=== PATIENT | male | born 1945 | race Caucasian/White ===

== ENCOUNTER 2018-09-08 21:47 | Inpatient (IN) ==
[2018-09-08 22:34] LABS: Basophils # 0.1 K/mm3 (0-0.2); Basophils % 0.5 % (0.1-2.0); Eosinophils # 0.5 K/mm3 (0.0-0.4); Eosinophils % 2.5 % (0.1-12.0); Hematocrit 45.3 % (42.0-52.0); Hemoglobin 14.8 g/dL (14.1-18.0); Lymphocytes # 2.4 K/mm3 (0.7-4.5); Mean Corpuscular HGB Conc 32.7 g/dL (31.8-35.4); Mean Corpuscular Hemoglobin 30.4 pg (27.0-31.2); Mean Corpuscular Volume 92.9 fl (80-94); Mean Platelet Volume 8.1 fl (7.4-10.4); Monocytes # 1.1 K/mm3 (0.1-1.0); Monocytes % 5.7 % (1.7-9.3); Neutrophils # 14.6 K/mm3 (1.8-7.8); Neutrophils % 78.4 % (37.0-80.0); Platelet Count 380 K/mm3 (142-424); Red Blood Count 4.88 M/mm3 (4.60-6.20); Red Cell Distribution Width 14.6 % (11.5-17.5); White Blood Count 18.7 K/mm3 (4.8-10.8)
[2018-09-08 22:44] LABS: Albumin Level 2.8 gm/dL (3.4-5.0); Albumin/Globulin Ratio 0.6 (1.1-1.8); Anion Gap 15.1 mEq/L (5-15); Bilirubin,Total 0.6 mg/dL (0.2-1.0); Calcium 9.1 mg/dL (8.5-10.1); Globulin 4.7 gm/dl (1.3-3.2); Potassium 4.1 mmoL/L (3.5-5.1); Total Protein,Serum 7.5 gm/dL (6.4-8.2)
[2018-09-08 22:49] LABS: Lymphocytes % 13 % (10-50); Monocytes % 4 % (2-9); Neutrophils % 77 % (42-76); RBC Morphology Normal; Total Cells Counted 100
[2018-09-08 23:16] LABS: INR 2.45 (0.9-1.1); Prothrombin Time 24.6 seconds (9.4-11.8)
--- NOTE | 2018-09-08 23:17 | Emergency Department Note ---
ED Disposition Clinical Impression: Renal insufficiency Cellulitis Qualifiers: Site of cellulitis: extremity Site of cellulitis of extremity: lower extremity Laterality: right Qualified Code(s): L03.115 - Cellulitis of right lower limb A-fib Qualifiers: Atrial fibrillation type: chronic Qualified Code(s): I48.2 - Chronic atrial fibrillation Disposition: Admitted as Observation Condition on Discharge: Good - Critical Care Critical Care Time: No Attestation: On 09/08/18, the high probability of a clinically significant, sudden or life threatening deterioration of the following system(s) required my full and direct attention, intervention and personal management. The time I documented below is in addition to time spent performing reported procedures but includes the following listed in this critical care notation. Medical Decision Making - Medical Records Medical records reviewed: Yes: I reviewed the patient's medical records. - Macario Inquiry Pt receiving controlled substance: No Vital Signs: 09/08/18 21:51 09/08/18 23:05 Temperature 97.9 F Temperature Source Oral Pulse Rate [Right Brachial] 122 H 110 H Respiratory Rate 20 16 Blood Pressure [Right Arm] 108/71 L 116/67 Blood Pressure Mean [Right Arm] 83 83 Blood Pressure Source [Right Arm] Automatic Cuff Automatic Cuff Blood Pressure Position [Right Arm] Sitting Sitting 02 Sat by Pulse Oximetry 100 98 Oxygen Delivery Method Room Air Room Air - Lab Data Lab results reviewed: Yes: I reviewed the patient's lab results. Lab Results 09/08/18 22:11: WBC 18.7 H, RBC 4.88, Hgb 14.8, Hct 45.3, MCV 92.9, MCH 30.4, MCHC 32.7, RDW 14.6, Plt Count 380, MPV 8.1, Neut % (Auto) 78.4, Lymph % (Auto) 13.0, [place] % (Auto) 5.7, Eos % (Auto) 2.5, Baso % (Auto) 0.5, Neut # (Auto) 14.6 H, Lymph # (Auto) 2.4, [place] # (Auto) 1.1 H, Eos # (Auto) 0.5 H, Baso # (Auto) 0. 1, Total Counted 100, Neutrophils % (Manual) 77 H, Band Neutrophils % 6.0, Lymphocytes % (Manual) 13, Monocytes % (Manual) 4, Platelet Estimate Normal, RBC Morphology Normal 09/08/18 22:11: Sodium 141, Potassium 4.1, Chloride 104, Carbon Dioxide 26, Anion Gap 15.1 H, BUN 24 H, Creatinine 1.23, Estimated Creat Clear 87, Estimated GFR 58 L, Est GFR ( Amer) 70, Glucose 117 H, Calcium 9.1, Total Bilirubin 0.6, AST 20, ALT 42, Alkaline Phosphatase 96, Total Protein 7.5, Albumin 2.8 L, Globulin 4.7 H, Albumin/Globulin Ratio 0.6 L 09/08/18 22:11: Lactate 1.4 09/08/18 22:11: ESR 60 H 09/08/18 22:11: C-Reactive Protein 15.6 H 09/08/18 22:11: PT 24.6 H, INR 2.45 H Result diagrams: 09/08/18 22:11 09/08/18 22:11 Orders (Tests/Meds): ED MEDICATIONS Generic Name Dose Route Start Last Admin Trade Name Freq PRN Reason Stop Dose Admin Sodium Chloride 1,000 mls @ 999 mls/hr 09/08/18 22:15 09/08/18 22:19 Sod Chlor 0.9% 1000ml Bag IV 09/08/18 23:15 999 mls/hr .Q1H1M GANGA Administration Clindamycin Phosphate 900 mg/ 106 mls @ 100 mls/hr 09/08/18 23:30 09/08/18 23:36 Sodium Chloride IV 09/22/18 23:29 100 mls/hr Q8H GANGA Administration Protocol Levofloxacin/Dextrose 750 mg in 150 mls @ 100 mls/hr 09/08/18 23:30 Levofloxacin 750mg/150ml Premix IV 09/22/18 23:29 Q24H GANGA Protocol Sodium Chloride 10 ml 09/08/18 22:02 Saline Flush 10ml Syringe IV 10/08/18 22:01 NEEDED PRN Maintain IV Site Discontinued Medications Generic Name Dose Route Start Last Admin Trade Name Freq PRN Reason Stop Dose Admin Ibuprofen 400 mg 09/08/18 23:06 09/08/18 23:11 Motrin 400mg Tablet PO 09/08/18 23:07 400 mg ONCE ONE Administration Morphine Sulfate 4 mg 09/08/18 22:22 09/08/18 22:24 Morphine 4mg/Ml Syringe IV 09/08/18 22:23 4 mg ONCE ONE Administration Ondansetron HCl 4 mg 09/08/18 22:22 09/08/18 22:24 Zofran 4mg/2ml Vial IV 09/08/18 22:23 4 mg ONCE ONE Administration ORDERS Category Date Time Status XR ankle RT min 3V Stat Exams 09/08/18 22:02 Taken Blood Culture Stat Micro 09/08/18 22:11 Received Wound Culture and Gram Stain Stat Micro 09/08/18 22:04 Ordered ECG Request by /Niko Stat Y 09/08/18 22:12 Ordered - Radiology Data #1 Image(s): Ankle Image Reviewed: Yes I reviewed the patient's radiology image Preliminary Findings: Abnormal (orif ) - ECG Data Tracing #1 Arrhythmias present: afib Ischemic changes: non-specific ST-T wave changes - Physician Consults Physician Consulted: abbie Reason -: Admission Skin/Abscess/FB HPI - General Chief complaint: Skin/Abscess/Foreign Body Stated complaint: Right leg swollen and red Time Seen by Provider: 09/08/18 23:17 Mode of Arrival: Wheelchair Source of Information: Patient, Spouse, Medical Record Limitations: No Limitations Description of Symptoms (Recalled from ER Triage Doc. by RN): Pt has a swollen, painful red right ankle that started almost a week ago, he denies any other symptoms . - History of Present Illness HPI narrative: progressive pain and swelling rt lower leg over the last few days - no sob - had orif rt ankle -2002 complaint: abscess/boil Onset (ago): hour(s) Tetanus up to date: unsure Location: RLE Severity: moderate Associated symptoms: denies other symptoms Treatments prior to arrival: none - Related Data Home Medications Medication Instructions Recorded Confirmed Amlodipine Besylate 10 mg PO DAILY 09/08/18 09/08/18 Budesonide/Formoterol Fumarate 1 puff IH NEEDED PRN 09/08/18 09/08/18 [Symbicort 160-4.5 Mcg Inhaler] Furosemide [Furosemide 40MG tAB] 40 mg PO DAILY 09/08/18 09/08/18 Losartan Potassium 100 mg PO DAILY 09/08/18 09/08/18 Metoprolol Tartrate 100 mg PO DAILY 09/08/18 09/08/18 Oxycodone HCl/Acetaminophen 10 mg PO NEEDED PRN 09/08/18 09/08/18 [Oxycodone W/Apap 325mg Tablet] Warfarin Sodium 3 mg PO DAILY 09/08/18 09/08/18 Allergies Allergy/AdvReac Type Severity Reaction Status Date / Time NO KNOWN ALLERGIES - NKA Allergy Unknown Uncoded 07/03/17 14:22 [facility] [place] History - Hepatitis A Screen Drug use history?: No High risk sexual behaviors?: No History of sexually transmitted infection?: No Currently employed?: No Childcare worker?: No Do you have indoor plumbing?: Yes Do you have electricity?: Yes Attestation statement:: This patient has been screened for Hepatitis A risk factors. I have reviewed the patient's past medical history: Yes Medical History: Denies:: Diabetes Mellitus Type 1 Laterality Cases: Bilateral: Total Knee Replacement - Social History Smoking Status: Current every day smoker Tobacco Type: cigarettes # Packs/Day (cigarettes): 1 Alcohol Intake: never Occupational Status: disabled - Psychiatric History Expresses thoughts of harming self/others: None Suicide Plan Description: No Plan ROS Obtained: Yes All systems reviewed & no additional complaints - Constitutional Constitutional: Denies fever(s) - Eyes Eyes: Denies change in vision - ENT Ears, Nose, Mouth, and Throat: Denies sore throat - Cardiovascular Cardiovascular: Denies chest pain - Respiratory Respiratory: No cough, No dyspnea - Gastrointestinal Gastrointestingal: Denies: abdominal pain - Genitourinary Male Genitourinary: Denies hematuria - Musculoskeletal Musculoskeletal: Reports as per HPI, Reports joint pain, Reports joint swelling, Reports limited range of motion - Integumentary/Breasts Skin/Breast: Denies rash - Neurologic Neurologic: Denies seizure-like activity Physical Exam - General General appearance: alert - Head Head exam: normocephalic - Eye Eye exam: Present: PERRL, EOMI - ENT ENT exam: Present: mucous membranes moist - Neck Neck exam: Present: trachea midline - Respiratory Respiratory exam: Absent: respiratory distress - Cardiovascular Cardiovascular exam: Present: irregular rhythm, systolic murmur - Abdominal Exam Abdominal exam: Present: soft - Expanded Lower Extremity Exam Right Lower leg exam: Absent: Homans' sign Ankle exam: Present: tenderness, erythema. Absent: full ROM - Neurological Exam Neurological exam: Present: alert, CN II-XII intact
[2018-09-09 06:21] LABS: Basophils # 0.1 K/mm3 (0-0.2); Basophils % 0.5 % (0.1-2.0); Eosinophils # 0.3 K/mm3 (0.0-0.4); Hemoglobin 13.7 g/dL (14.1-18.0); Lymphocytes # 2.1 K/mm3 (0.7-4.5); Lymphocytes % 13.2 % (10-50); Mean Corpuscular HGB Conc 32.7 g/dL (31.8-35.4); Mean Corpuscular Hemoglobin 30.4 pg (27.0-31.2); Mean Platelet Volume 7.7 fl (7.4-10.4); Monocytes # 1.3 K/mm3 (0.1-1.0); Monocytes % 7.9 % (1.7-9.3); Neutrophils # 12.1 K/mm3 (1.8-7.8); Neutrophils % 76.5 % (37.0-80.0); Platelet Count 363 K/mm3 (142-424); Red Blood Count 4.51 M/mm3 (4.60-6.20); Red Cell Distribution Width 14.7 % (11.5-17.5); White Blood Count 15.8 K/mm3 (4.8-10.8)
[2018-09-09 06:27] LABS: Anion Gap 11.3 mEq/L (5-15); Calcium 8.7 mg/dL (8.5-10.1); Potassium 4.3 mmoL/L (3.5-5.1)
[2018-09-09 06:28] LABS: INR 2.54 (0.9-1.1); Prothrombin Time 25.5 seconds (9.4-11.8)
--- NOTE | 2018-09-09 07:26 | Pharmacy Consult Notes ---
[facility] Pharmacy VTE Monitoring - Patient Demographics Admission date: 09/09/18 Report Date: 09/09/18 Time: 07:25 Allergies/Adverse Reactions: Patient Allergies NO KNOWN ALLERGIES - NKA Allergy (Unknown, Uncoded 07/03/17 14:22) Height: 1.83 m Weight: 113.455 kg Patient Problems: Current Active Problems Cellulitis (Acute) A-fib (Acute) Renal insufficiency (Acute) - VTE Risk Labs: VTE Related Lab Results Hgb 13.7 g/dL (14.1-18.0) L 09/09/18 06:03 Hct 42.0 % (42.0-52.0) 09/09/18 06:03 Plt Count 363 K/mm3 (142-424) 09/09/18 06:03 PT 25.5 seconds (9.4-11.8) H 09/09/18 06:03 INR 2.54 (0.9-1.1) H 09/09/18 06:03 BUN 23 mg/dL (7-18) H 09/09/18 06:03 Creatinine 1.18 mg/dL (0.70-1.30) 09/09/18 06:03 Estimated Creat Clear 91 mL/min (50-200) 09/09/18 06:03 - Prophylaxis VTE Prophylaxis Ordered?: Yes Types of VTE Prophylaxis: TEDS Knee High Location of Applied Device: Left Leg - VTE Diagnosis Confirmed Treatment or plan recommended: Continue Current Treatment
--- NOTE | 2018-09-09 07:33 | History & Physical Report ---
*Admission Date: 09/08/18 *Chief complaint: Right leg pain *History of present illness: 73-year-old male with history of right lower leg and ankle injury 15 years ago requiring ORIF presented to the emergency department with 5 days of pain and redness in that same leg. Patient tells me he noticed discomfort beginning on September 03. He hoped it would just go away when and when it did not and pain intensified he finally presented to the emergency department. He denies having fevers or chills. His biggest complaint is pain. In the emergency department he was evaluated and felt to have a cellulitis of the right lower extremity. Because the patient's inability to bear significant weight in the degree of cellulitis he was admitted for IV inpatient antibiotics. Patient's white count was elevated. This morning he is not really sure there is been much improvement since admission [facility] History I have reviewed the patient's past medical history: Yes Medical History: Reports:: Atrial Fibrillation, Chronic Obstructive Pulmonary Disease (COPD), Hypertension Denies:: Diabetes Mellitus Type 1, Diabetes Mellitus Type 2 *Have you ever received a pneumonia vaccine?: Yes *Have you received a flu vaccine this season?: Yes Laterality Cases: Right: Other, Bilateral: Total Knee Replacement Comment: ORIF right ankle - *Social History Smoking Status: Current every day smoker Tobacco Type: cigarettes # Packs/Day (cigarettes): 1 Alcohol Intake: never *Occupational Status:: disabled Housing: house Household Members: spouse *Travel in the last 8 weeks: None - Psychiatric History Expresses thoughts of harming self/others: None Suicide Plan Description: No Plan Family Hx:: Hypertension Review of Systems - Constitutional Denies anorexia, Denies body ache(s), Denies chills - *Cardiovascular Denies chest pain, Denies chest pain at rest - *Respiratory Denies change in phlegm color, Denies chest congestion, Denies cough - *Gastrointestinal Denies abdominal pain, Denies belching - *Musculoskeletal Reports abnormal walking, Reports joint pain, Reports limited joint movement - *Neurologic Denies seizure-like activity Meds Home Medications Medication Instructions Recorded Confirmed Type Amlodipine Besylate 10 mg PO DAILY 09/08/18 09/08/18 History Budesonide/Formoterol Fumarate 1 puff IH NEEDED PRN 09/08/18 09/08/18 History [Symbicort 160-4.5 Mcg Inhaler] Furosemide [Furosemide 40MG tAB] 40 mg PO DAILY 09/08/18 09/08/18 History Losartan Potassium 100 mg PO DAILY 09/08/18 09/08/18 History Metoprolol Tartrate 100 mg PO DAILY 09/08/18 09/08/18 History Oxycodone HCl/Acetaminophen 10 mg PO NEEDED PRN 09/08/18 09/08/18 History [Oxycodone W/Apap 325mg Tablet] Warfarin Sodium 3 mg PO DAILY 09/08/18 09/08/18 History Allergies Allergy/AdvReac Type Severity Reaction Status Date / Time NO KNOWN ALLERGIES - NKA Allergy Unknown Uncoded 07/03/17 14:22 Exam Vital signs and Labs for Last 24 Hours: Temp Pulse Resp BP Pulse Ox 98.2 F 93 H 20 116/66 93 L 09/09/18 04:00 09/09/18 04:00 09/09/18 04:00 09/09/18 04:00 09/09/18 04:00 Laboratory Results - last 24 hr 09/08/18 22:11: WBC 18.7 H, RBC 4.88, Hgb 14.8, Hct 45.3, MCV 92.9, MCH 30.4, MCHC 32.7, RDW 14.6, Plt Count 380, MPV 8.1, Neut % (Auto) 78.4, Lymph % (Auto) 13.0, [place] % (Auto) 5.7, Eos % (Auto) 2.5, Baso % (Auto) 0.5, Neut # (Auto) 14.6 H, Lymph # (Auto) 2.4, [place] # (Auto) 1.1 H, Eos # (Auto) 0.5 H, Baso # (Auto) 0.1, Total Counted 100, Neutrophils % (Manual) 77 H, Band Neutrophils % 6.0, Lymphocytes % (Manual) 13, Monocytes % (Manual) 4, Platelet Estimate Normal, RBC Morphology Normal 09/08/18 22:11: Sodium 141, Potassium 4.1, Chloride 104, Carbon Dioxide 26, Anion Gap 15.1 H, BUN 24 H, Creatinine 1.23, Estimated Creat Clear 87, Estimated GFR 58 L, Est GFR ( Amer) 70, Glucose 117 H, Calcium 9.1, Total Bilirubin 0.6, AST 20, ALT 42, Alkaline Phosphatase 96, Total Protein 7.5, Albumin 2.8 L, Globulin 4.7 H, Albumin/Globulin Ratio 0.6 L 09/08/18 22:11: Lactate 1.4 09/08/18 22:11: ESR 60 H 09/08/18 22:11: C-Reactive Protein 15.6 H 09/08/18 22:11: PT 24.6 H, INR 2.45 H 09/09/18 06:03: WBC 15.8 H, RBC 4.51 L, Hgb 13.7 L, Hct 42.0, MCV 93.0, MCH 30.4, MCHC 32.7, RDW 14.7, Plt Count 363, MPV 7.7, Neut % (Auto) 76.5, Lymph % (Auto) 13.2, [place] % (Auto) 7.9, Eos % (Auto) 2.0, Baso % (Auto) 0.5, Neut # (Auto) 12.1 H, Lymph # (Auto) 2.1, [place] # (Auto) 1.3 H, Eos # (Auto) 0.3, Baso # (Auto) 0.1 09/09/18 06:03: PT 25.5 H, INR 2.54 H 09/09/18 06:03: Sodium 141, Potassium 4.3, Chloride 105, Carbon Dioxide 29, Anion Gap 11.3, BUN 23 H, Creatinine 1.18, Estimated Creat Clear 91, Estimated GFR 61, Est GFR ( Amer) 73, Glucose 101, Calcium 8.7 I & O for Last 24 hours: Intake & Output 09/06/18 09/07/18 09/08/18 09/09/18 11:59 11:59 11:59 11:59 Weight 250 lb 2 oz Narrative: Patient is awake and alert and comfortable in bed. ENT exam is grossly normal. Lungs have some faint coarse breath sounds. Heart rate is irregularly irregular. Abdomen is obese and soft. Extremity examination reveals postsurgical changes of the right ankle. There is erythema of the skin and I have drawn a border around the erythema this morning. Erythema starts at about the mid tibia and wraps around the leg circumferentially and extends down to just above the ankle joint. Skin is tender to touch especially in the medial Assessment and Plan (1) Cellulitis of right leg without foot Current visit: Yes Status: Acute Category: Medical Code(s): L03.115 - Cellulitis of right lower limb (2) COPD (chronic obstructive pulmonary disease) Current visit: Yes Status: Acute Category: Medical Code(s): J44.9 - Chronic obstructive pulmonary disease, unspecified (3) A-fib Current visit: Yes Status: Acute Qualifiers: Atrial fibrillation type: chronic Qualified Code(s): I48.2 - Chronic atrial fibrillation Category: Medical Code(s): I48.91 - Unspecified atrial fibrillation - Assessment and plan all Dx Assessment and Plan for all problems:: 1. I am going to change his antibiotics to Unasyn and vancomycin 2. Oral narcotics for pain control 3. Home medications
--- NOTE | 2018-09-09 08:58 | Pharmacy Consult Notes ---
- Pharmacy Consult Date: 09/09/18 Time: 08:56 Referring provider: DR. TADEO Reason for Consult:: VANCOMYCIN DOSING Allergies and ADEs:: Allergies Allergy/AdvReac Type Severity Reaction Status Date / Time No Known Allergies Allergy Unverified 09/09/18 08:09 Home Medications:: Home Medications Medication Instructions Recorded Confirmed Type Amlodipine Besylate 10 mg PO DAILY 09/08/18 09/08/18 History Budesonide/Formoterol Fumarate 2 puff IH BID 09/08/18 09/09/18 History [Symbicort 160-4.5 Mcg Inhaler] Furosemide [Furosemide 40MG tAB] 40 mg PO BID 09/08/18 09/09/18 History Losartan Potassium 100 mg PO DAILY 09/08/18 09/08/18 History Metoprolol Tartrate 100 mg PO BID 09/08/18 09/09/18 History Oxycodone HCl/Acetaminophen 10 mg PO Q6HP PRN 09/08/18 09/09/18 History [Oxycodone W/Apap 325mg Tablet] Warfarin Sodium 3 mg PO DAILY 09/08/18 09/08/18 History Height: 1.83 m Weight: 113.455 kg Laboratory Results:: Laboratory Results - last 24 hr 09/08/18 22:11: WBC 18.7 H, RBC 4.88, Hgb 14.8, Hct 45.3, MCV 92.9, MCH 30.4, MCHC 32.7, RDW 14.6, Plt Count 380, MPV 8.1, Neut % (Auto) 78.4, Lymph % (Auto) 13.0, [place] % (Auto) 5.7, Eos % (Auto) 2.5, Baso % (Auto) 0.5, Neut # (Auto) 14.6 H, Lymph # (Auto) 2.4, [place] # (Auto) 1.1 H, Eos # (Auto) 0.5 H, Baso # (Auto) 0.1, Total Counted 100, Neutrophils % (Manual) 77 H, Band Neutrophils % 6.0, Lymphocytes % (Manual) 13, Monocytes % (Manual) 4, Platelet Estimate Normal, RBC Morphology Normal 09/08/18 22:11: Sodium 141, Potassium 4.1, Chloride 104, Carbon Dioxide 26, Anion Gap 15.1 H, BUN 24 H, Creatinine 1.23, Estimated Creat Clear 87, Estimated GFR 58 L, Est GFR ( Amer) 70, Glucose 117 H, Calcium 9.1, Total Bilirubin 0.6, AST 20, ALT 42, Alkaline Phosphatase 96, Total Protein 7.5, Albumin 2.8 L, Globulin 4.7 H, Albumin/Globulin Ratio 0.6 L 09/08/18 22:11: Lactate 1.4 09/08/18 22:11: ESR 60 H 09/08/18 22:11: C-Reactive Protein 15.6 H 09/08/18 22:11: PT 24.6 H, INR 2.45 H 09/09/18 06:03: WBC 15.8 H, RBC 4.51 L, Hgb 13.7 L, Hct 42.0, MCV 93.0, MCH 30.4, MCHC 32.7, RDW 14.7, Plt Count 363, MPV 7.7, Neut % (Auto) 76.5, Lymph % (Auto) 13.2, [place] % (Auto) 7.9, Eos % (Auto) 2.0, Baso % (Auto) 0.5, Neut # (Auto) 12.1 H, Lymph # (Auto) 2.1, [place] # (Auto) 1.3 H, Eos # (Auto) 0.3, Baso # (Auto) 0.1 09/09/18 06:03: PT 25.5 H, INR 2.54 H 09/09/18 06:03: Sodium 141, Potassium 4.3, Chloride 105, Carbon Dioxide 29, Anion Gap 11.3, BUN 23 H, Creatinine 1.18, Estimated Creat Clear 91, Estimated GFR 61, Est GFR ( Amer) 73, Glucose 101, Calcium 8.7 Medical History: Reports:: Atrial Fibrillation, Chronic Obstructive Pulmonary Disease (COPD), Hypertension Denies:: Diabetes Mellitus Type 1, Diabetes Mellitus Type 2 Assessment and Plan (1) Cellulitis of right leg without foot Current visit: Yes Status: Acute Category: Medical Code(s): L03.115 - Cellulitis of right lower limb (2) COPD (chronic obstructive pulmonary disease) Current visit: Yes Status: Acute Category: Medical Code(s): J44.9 - Chronic obstructive pulmonary disease, unspecified (3) A-fib Current visit: Yes Status: Acute Qualifiers: Atrial fibrillation type: chronic Qualified Code(s): I48.2 - Chronic atrial fibrillation Category: Medical Code(s): I48.91 - Unspecified atrial fibrillation - Assessment and plan all Dx Assessment and Plan for all problems:: BASED ON PATIENT FACTORS, RECOMMEND VANCOMYCIN 2 GM IV Q18H. PHARMACY WILL FOLLOW DAILY AND ADJUST APPROPRIATE.
[2018-09-10 06:52] LABS: INR 1.97 (0.9-1.1); Prothrombin Time 19.9 seconds (9.4-11.8)
--- NOTE | 2018-09-10 07:09 | Progress Note ---
Internal Medicine - PN: Subj *Date: 09/10/18 *Time: 07:07 Interval history: Patient denies any improvement in the pain in the leg. He has not attempted to ambulate due to the discomfort. Exam Vital signs and Labs for Last 24 Hours: Temp Pulse Resp BP Pulse Ox 97.2 F L 102 H 20 145/77 H 95 09/10/18 03:32 09/10/18 03:32 09/10/18 03:32 09/10/18 03:32 09/10/18 03:32 Laboratory Results - last 24 hr 09/10/18 06:25: PT 19.9 H, INR 1.97 H I & O for Last 24 hours: Intake & Output 09/07/18 09/08/18 09/09/18 09/10/18 11:59 11:59 11:59 11:59 Intake Total 120 / 120 1848 / 1848 Output Total 2700 / 2700 Balance 120 / 120 -852 / -852 Weight 250 lb 2 oz Narrative: The right lower leg from the mid soliz to the ankles remains erythematous and slightly warm to the touch. Starting at the mid tibia he has exquisite tenderness to palpation. This tenderness extends all the way to the ankle joint. Assessment and Plan (1) Cellulitis of right leg without foot Current visit: Yes Status: Acute Category: Medical Code(s): L03.115 - Cellulitis of right lower limb (2) COPD (chronic obstructive pulmonary disease) Current visit: Yes Status: Acute Category: Medical Code(s): J44.9 - Chronic obstructive pulmonary disease, unspecified (3) A-fib Current visit: Yes Status: Acute Qualifiers: Atrial fibrillation type: chronic Qualified Code(s): I48.2 - Chronic atrial fibrillation Category: Medical Code(s): I48.91 - Unspecified atrial fibrillation - Assessment and plan all Dx Assessment and Plan for all problems:: Continue antibiotics. I am going to add on intravenous steroid and some oral colchicine for the possibility of gout. Patient has no personal history of gout.
[2018-09-10 07:25] LABS: Basophils % 0.3 % (0.1-2.0); Eosinophils # 0.2 K/mm3 (0.0-0.4); Eosinophils % 1.3 % (0.1-12.0); Hematocrit 45.7 % (42.0-52.0); Hemoglobin 14.9 g/dL (14.1-18.0); Lymphocytes # 1.9 K/mm3 (0.7-4.5); Lymphocytes % 12.5 % (10-50); Mean Corpuscular HGB Conc 32.5 g/dL (31.8-35.4); Mean Corpuscular Hemoglobin 30.5 pg (27.0-31.2); Mean Corpuscular Volume 93.7 fl (80-94); Mean Platelet Volume 7.7 fl (7.4-10.4); Monocytes # 0.8 K/mm3 (0.1-1.0); Neutrophils # 12.2 K/mm3 (1.8-7.8); Neutrophils % 80.9 % (37.0-80.0); Platelet Count 375 K/mm3 (142-424); Red Blood Count 4.88 M/mm3 (4.60-6.20); Red Cell Distribution Width 14.6 % (11.5-17.5); White Blood Count 15.1 K/mm3 (4.8-10.8)
[2018-09-10 08:27] LABS: Lymphocytes % 10 % (10-50); Monocytes % 6 % (2-9); Neutrophils % 82 % (42-76); Total Cells Counted 100
[2018-09-10 08:28] LABS: RBC Morphology Normal
[2018-09-11 07:30] LABS: Basophils % 0.2 % (0.1-2.0); Hematocrit 44.2 % (42.0-52.0); Hemoglobin 14.8 g/dL (14.1-18.0); Lymphocytes # 1.3 K/mm3 (0.7-4.5); Lymphocytes % 8.2 % (10-50); Mean Corpuscular HGB Conc 33.5 g/dL (31.8-35.4); Mean Corpuscular Volume 92.4 fl (80-94); Mean Platelet Volume 8.3 fl (7.4-10.4); Monocytes # 0.4 K/mm3 (0.1-1.0); Monocytes % 2.9 % (1.7-9.3); Neutrophils # 13.6 K/mm3 (1.8-7.8); Neutrophils % 88.7 % (37.0-80.0); Platelet Count 394 K/mm3 (142-424); Red Blood Count 4.78 M/mm3 (4.60-6.20); Red Cell Distribution Width 14.4 % (11.5-17.5); White Blood Count 15.3 K/mm3 (4.8-10.8)
--- NOTE | 2018-09-11 07:30 | Discharge Summary ---
General - General Admission date:: 09/08/18 Discharge date: 09/11/18 HPI HPI: 73-year-old male with history of right lower leg and ankle injury 15 years ago requiring ORIF presented to the emergency department with 5 days of pain and redness in that same leg. Patient tells me he noticed discomfort beginning on September 03. He hoped it would just go away when and when it did not and pain intensified he finally presented to the emergency department. He denies having fevers or chills. His biggest complaint is pain. In the emergency department he was evaluated and felt to have a cellulitis of the right lower extremity. Because the patient's inability to bear significant weight in the degree of cellulitis he was admitted for IV inpatient antibiotics. Patient's white count was elevated. This morning he is not really sure there is been much improvement since admission Hospital Course Hospital Course: Patient was admitted and placed on broad-spectrum antibiotic coverage for treatment of apparent cellulitis of the right lower extremity. Diagnosis of infection was supported by patient's elevated white count. Sed rate and C- reactive protein were also noted to be elevated. Patient's x-ray of the foot and ankle showed orthopedic hardware. After 24 hours of antibiotics patient had noted little improvement in pain of the right lower extremity. Edges of erythema were marked with a pen. By the morning of the the patient still and not notice any improvement. He requested crutches for ambulation. Consideration was given to the possibility of gout as a source of the patient's inflammation and pain. Patient was started on Colcrys and intravenous steroids. Approximately 24 hours later patient had had significant improvement in pain, especially tenderness of the extremity. Erythema had seem to proceed and was concentrating just above the anterior ankle joint. During hospitalization and prior to hospitalization patient never had fevers. Once patient's pain had impr vin he was discharged home and will continue steroids and Colcrys for gout. He will finish a course of antibiotics as well. Patient will follow-up in the office on September 13 at 2 PM Objective Vital signs: Temp Pulse Resp BP Pulse Ox 98.5 F 90 16 115/61 93 L 09/11/18 04:00 09/11/18 04:00 09/11/18 04:00 09/11/18 04:00 09/11/18 04:00 Narrative: On day of discharge patient's right lower extremity had tenderness in the distal anterior tibia. Tenderness had decreased compared to previous days. The area of tenderness had also receded and was more focal. Skin remain mildly erythematous. There was no sign of abscess Results Labs on day of discharge: Labs from last 24 hours 09/10/18 06:25 WBC 15.1 H RBC 4.88 Hgb 14.9 Hct 45.7 MCV 93.7 MCH 30.5 MCHC 32.5 RDW 14.6 Plt Count 375 MPV 7.7 Neut % (Auto) 80.9 H Lymph % (Auto) 12.5 Mitchell % (Auto) 5.0 Eos % (Auto) 1.3 Baso % (Auto) 0.3 Neut # (Auto) 12.2 H Lymph # (Auto) 1.9 Mitchell # (Auto) 0.8 Eos # (Auto) 0.2 Baso # (Auto) 0.0 Total Counted 100 Neutrophils % (Manual) 82 H Band Neutrophils % 2.0 Lymphocytes % (Manual) 10 Monocytes % (Manual) 6 Platelet Estimate Normal RBC Morphology Normal Preliminary micro results at discharge 09/08/18 22:11 Blood Culture - Preliminary Blood NO GROWTH AFTER 48 HOURS 09/08/18 22:11 Blood Culture - Preliminary Blood NO GROWTH AFTER 48 HOURS DS: Diagnosis - Discharge Diagnosis (1) Cellulitis of right leg without foot Status: Acute (2) COPD (chronic obstructive pulmonary disease) Status: Acute (3) A-fib Status: Acute (4) Gout of right ankle Status: Suspected Discharge Plan - Patient Discharge Instructions ACTIVITY: Continue current activity DIET: continue same diet Patient Instructions: DI for Cellulitis -- Adult, Kidney Failure, Cellulitis, Atrial Fibrillation, DI for Atrial Fibrillation - Follow up Plan Follow up with: Ricardo Fulton MD [Primary Care Provider] - 09/13/18 Disposition: Home, Self-Correction Medications: Home Medications Medication Instructions Recorded Confirmed Type Amlodipine Besylate 10 mg PO DAILY 09/08/18 09/08/18 History Budesonide/Formoterol Fumarate 2 puff IH BID 09/08/18 09/09/18 History [Symbicort 160-4.5 Mcg Inhaler] Furosemide [Furosemide 40MG tAB] 40 mg PO BID 09/08/18 09/09/18 History Losartan Potassium 100 mg PO DAILY 09/08/18 09/08/18 History Metoprolol Tartrate 100 mg PO BID 09/08/18 09/09/18 History Oxycodone HCl/Acetaminophen 10 mg PO Q6HP PRN 09/08/18 09/09/18 History [Oxycodone W/Apap 325mg Tablet] Warfarin Sodium 3 mg PO DAILY 09/08/18 09/08/18 History Warfarin Sodium [Coumadin] 4 mg PO DAILY 09/09/18 09/09/18 History Colchicine [Colcrys 0.6mg tablet] 0.6 mg PO CONT #14 tablet 09/11/18 Rx levoFLOXacin [Levaquin 500mg 500 mg PO DAILY #7 tab 09/11/18 Rx tab] predniSONE [Prednisone 20mg 2 tab PO DAILY #20 tab 09/11/18 Rx Tab] Prescriptions/Medication Reconciliation: New levoFLOXacin [Levaquin 500mg tab] 500 mg PO DAILY #7 tab predniSONE [Prednisone 20mg Tab] 2 tab PO DAILY #20 tab Colchicine [Colcrys 0.6mg tablet] 0.6 mg PO CONT #14 tablet Continue Warfarin Sodium 3 mg PO DAILY Oxycodone HCl/Acetaminophen [Oxycodone W/Apap 325mg Tablet] 10 mg PO Q6HP PRN PRN Reason: pain Metoprolol Tartrate 100 mg PO BID Losartan Potassium 100 mg PO DAILY Furosemide [Furosemide 40MG tAB] 40 mg PO BID Budesonide/Formoterol Fumarate [Symbicort 160-4.5 Mcg Inhaler] 2 puff IH BID Amlodipine Besylate 10 mg PO DAILY Warfarin Sodium [Coumadin] 4 mg PO DAILY
[2018-09-11 07:40] LABS: INR 1.93 (0.9-1.1); Prothrombin Time 19.5 seconds (9.4-11.8)
[2018-09-11 08:00] LABS: Lymphocytes % 7 % (10-50); Monocytes % 3 % (2-9); Neutrophils % 89 % (42-76); Total Cells Counted 100
[2018-09-11 08:01] LABS: RBC Morphology Normal
== END 2018-09-11 10:34 | disposition home or self-care (01) | DRG 603 ==
LOC: ER 21:47 → 2ND 21:47 → OBSVTOIN 09-09 00:20 → 2ND 09-09 00:23
PROVIDERS: ADMIT Internal Medicine Adolescent Medicine; ATTEND Family Medicine
CPT/HCPCS: 36415; 73610; 80048; 80053; 83605; 85007; 85025; 85610; 85651; 86140; 87040; 93005; 96365; 96367; 96375; 99285; J1956; J2405; J3370

== ENCOUNTER → 2018-09-18 15:04 | Outpatient (CLI) | payer BC, MEDICARE, SELFPAY | PROVIDERS: Visit Provider Family Medicine | DX: L03.115 Cellulitis of right lower limb (principal) | CPT/HCPCS: 87070; 87077; 87186; 87205 ==

== ENCOUNTER 2018-09-25 10:00 | Outpatient (RCR) | payer BC, MEDICARE, SELFPAY ==
--- NOTE | 2018-09-18 15:26 | HMH.PTOPWND ---
Rehab Outpt Wound Evaluation Rehab OP Wound Evaluation Start: 09/18/18 15:14 Freq: Status: Active Protocol: Document 09/18/18 15:14 ALEXANDER (Rec: 09/18/18 15:26 PHORNE [id number]) Electronically Signed By Jorge Ramsey, JEIMY 09/18/18 15:14 Subjective/History History History Pt is a 73 yowm who presents with c/o right medial ankle wound x ~ 1 wk. He reports he initially had increased edema, redness, and pain in the right ankle x ~ 3 wks. He then had a sore, just bust open, on the medial side of his right ankle. He reports large amounts of drainagecoming from the wound and he felt much less pain and pressure after it opened. He has been taking oral abx x ~ 5 days with decreased redness and pain. He has hx of open distal tib/fib fx of the same ankle ~ 15 yrs ago with ORIF and skin/muscle grafting. He also reports hx of COPD, A-fib, HTRN, and is a current every day smoker. Subjective Subjective Currently no c/o pain. Wound Eval Wound Right Medial Ankle Wound Type open cellulitis Wound Length (cm) 1.1 Wound Width (cm) 1.2 Wound Bed Appearance Yellow Percentage of Slough (%) 100 Wound Margins Description Well Defined Undermining Position 7 o'clock Undermining Length (cm) 0.9 Surrounding Tissue Appearance Stiles Edema Type Pitting Edema Degree 3+ Query Text:1+ Trace, Barely Detectable, Rebound 15-30 seconds 2+ Moderate, Slight Indentation, Rebound 10-20 seconds 3+ Deep, Deeper Indentation, Rebound > 30 seconds 4+ Very Deep, Rebound > 60 seconds Edema Appearance Puffy Drainage Description Serosanguineous Drainage Amount Large Drainage Odor No Odor Wound Topical Solution/Irrigant Saline Irrigant Packing Type Specialty Absorptive Comment opticell Ag Primary Dressing Composite Comment optifoam gentle with border Wound Debridement Method Sharps Forceps Wound Debridement Amount of Tissue Minimal R
== END 2018-09-25 10:05 | disposition home or self-care (01) ==
LOC: PT 10:00
PROVIDERS: Visit Provider Family Medicine
DX: L03.115 Cellulitis of right lower limb (principal)
CPT/HCPCS: 97162; 97597

== ENCOUNTER → 2018-10-21 11:20 | Outpatient (CLI) | payer BC, MEDICARE, SELFPAY ==
[2018-10-21 12:46] LABS: Vancomycin,Trough 10.9 mcg/ml (10.0-20.0)
== END ==
PROVIDERS: PCP Family Medicine; Visit Provider Family Medicine
DX: L03.115 Cellulitis of right lower limb (principal)
CPT/HCPCS: 80202

== ENCOUNTER → 2018-11-04 10:57 | Outpatient (CLI) | payer BC, MEDICARE, SELFPAY | PROVIDERS: Visit Provider Family Medicine | DX: L03.115 Cellulitis of right lower limb (principal); Z51.81 Encounter for therapeutic drug level monitoring | CPT/HCPCS: 80202 ==

== ENCOUNTER → 2018-11-18 11:51 | Outpatient (CLI) | payer BC, MEDICARE, SELFPAY ==
[2018-11-18 13:11] LABS: Vancomycin,Trough 20.6 mcg/ml (10.0-20.0)
== END ==
PROVIDERS: Visit Provider Family Medicine
DX: L03.115 Cellulitis of right lower limb (principal); Z51.81 Encounter for therapeutic drug level monitoring
CPT/HCPCS: 80202

== ENCOUNTER → 2018-12-02 10:10 | Outpatient (CLI) | payer BC, MEDICARE, SELFPAY ==
[2018-12-02 10:54] LABS: Vancomycin,Trough 14.2 mcg/ml (10.0-20.0)
== END ==
PROVIDERS: Visit Provider Family Medicine
DX: L03.115 Cellulitis of right lower limb (principal); Z51.81 Encounter for therapeutic drug level monitoring
CPT/HCPCS: 80202

== ENCOUNTER → 2018-12-10 14:47 | Outpatient (CLI) | payer BC, MEDICARE, SELFPAY | PROVIDERS: Visit Provider Family Medicine | DX: Z51.81 Encounter for therapeutic drug level monitoring (principal) | CPT/HCPCS: 80202 ==

== ENCOUNTER → 2018-12-16 11:08 | Outpatient (REF) | payer BC, MEDICARE, SELFPAY ==
[2018-12-16 11:36] LABS: Vancomycin,Trough 10.4 mcg/ml (10.0-20.0)
== END ==
LOC: LAB 11:08
PROVIDERS: Visit Provider Internal Medicine Infectious Disease
DX: Z51.81 Encounter for therapeutic drug level monitoring (principal); L03.115 Cellulitis of right lower limb
CPT/HCPCS: 80202

== ENCOUNTER → 2019-07-04 11:02 | Outpatient (CLI) | payer BC, MEDICARE, SELFPAY ==
--- NOTE | 2019-07-04 11:09 | CT_ITS ---
PROCEDURE: CT CHEST WO CON CLINICAL INDICATION: LUNG CANCER Follow-up lung cancer COMPARISON: CXR CHEST(2 VIEWS-NOT PORTABLE) from 04/16/2017 CT CHEST W CONTRAST from 05/19/2019 TECHNIQUE: Axial images obtained with sagittal and coronal reformats. All CT scans at the facility use one or more dose reduction, viz: automated exposure control, ma/kV adjustment per patient size (including targeted exams where dose is matched to indication, i.e. head), or iterative reconstruction technique. The report is delayed waiting on outside films for comparison. FINDINGS: Soft tissue mass noted in the AP window of the mediastinum. This appears somewhat less bulky but is somewhat difficult to compare due to lack of IV contrast. Dimensions are difficult to measure. There is extensive coronary artery calcification. Normal heart size. No evidence of pericardial effusion. There is a small hiatal hernia along with a gastric diverticulum at the fundus of the stomach. There is a complex left adrenal mass which measures 4.9 x 4.6 cm not significantly changed. Centrilobular emphysema noted with scattered areas of fibrosis. There are numerous small parenchymal opacities which do not appear significantly changed. Peripheral mass in the right lower lobe is once again noted posteriorly at 26 by 13 mm. This is peripheral in nature not significantly changed. Images of the upper abdomen demonstrates a complex left renal mass which is unchanged. There is distended gallbladder with mild thickening of the gallbladder wall and a small amount of pericholecystic fluid. Common hepatic and common bile is prominent. Consider CT abdomen without and with contrast for further evaluation with pancreatic protocol or MRI/MRCP of the abdomen for further evaluation of the dilated duct. There an IJ MediPort catheter present with tip in the region the SVC. IMPRESSION: 1. Overall no significant change in the left hilar mass and the peripheral mass in the right lower lobe. 2. Emphysema and pulmonary fibrosis with scattered small nodular opacities which are unchanged. 3. No change in the left adrenal mass. 4. Distended gallbladder with gallbladder wall thickening and/or pericholecystic fluid along with prominence of the common bile duct and common hepatic duct. The Dictated by: Denver Veronica MD 07/17/2019 10:03 Electronically signed by Denver Veronica MD in [place] 07/17/2019 10:03
== END ==
PROVIDERS: PCP Family Medicine; Referring Provider Internal Medicine Hematology & Oncology; Visit Provider Internal Medicine Hematology & Oncology
DX: C34.90 Malignant neoplasm of unspecified part of unspecified bronchus or lung (principal)
CPT/HCPCS: 71250

== ENCOUNTER 2020-02-11 08:30 | Outpatient (CLI) | payer BC, MEDICARE, SELFPAY ==
[2020-02-11 08:42] VITALS: BMI 27.5
[2020-02-11 09:20] LABS: Basophils % 0.5 % (0.1-2.0); Eosinophils # 0.6 K/mm3 (0.0-0.4); Hematocrit 33.2 % (42.0-52.0); Hemoglobin 10.6 g/dL (14.1-18.0); Lymphocytes # 1.6 K/mm3 (0.7-4.5); Lymphocytes % 20.9 % (10-50); Mean Corpuscular HGB Conc 31.9 g/dL (31.8-35.4); Mean Corpuscular Hemoglobin 29.3 pg (27.0-31.2); Mean Corpuscular Volume 91.9 fl (80-94); Mean Platelet Volume 8.2 fl (7.4-10.4); Monocytes # 0.5 K/mm3 (0.1-1.0); Monocytes % 6.5 % (1.7-9.3); Neutrophils # 4.7 K/mm3 (1.8-7.8); Neutrophils % 64.1 % (37.0-80.0); Platelet Count 314 K/mm3 (142-424); Red Blood Count 3.61 M/mm3 (4.60-6.20); Red Cell Distribution Width 15.4 % (11.5-17.5); White Blood Count 7.4 K/mm3 (4.8-10.8)
[2020-02-11 09:25] LABS: Chloride 104 mmol/L (98-107); Potassium 3.9 mmoL/L (3.5-5.1); Sodium 141 mmol/L (136-145)
[2020-02-11 09:28] LABS: Alanine Aminotransferase 23 U/L (12-78); Albumin Level 3.4 g/dl (3.5-5.0); Albumin/Globulin Ratio 1.1 (1.1-1.8); Alkaline Phosphatase 164 U/L (38-126); Anion Gap 13.9 mEq/L (5-15); Aspartate Amino Transferase 28 U/L (17-59); Bilirubin,Total 0.5 mg/dl (0.2-1.3); Blood Urea Nitrogen 14 mg/dl (9-20); Calcium 8.8 mg/dl (8.4-10.2); Carbon Dioxide 27 mmol/L (22.0-30.0); Creatinine Clearance Estimated 86 mL/min (50-200); Estimated Glomerular Filt Rate 95 ml/min (>60); GFR (African American) 115 ML/MIN (>60); Globulin 3.1 g/dL (1.3-3.2); Glucose 94 mg/dl (74-100); Total Protein,Serum 6.5 g/dl (6.3-8.2)
[2020-02-11 10:01] LABS: Thyroid Stimulating Hormone 0.09 uIU/mL (0.465-4.68)
[2020-02-11 10:05] VITALS: BP 127/68; PULSE 93; RESP 20; TEMP 36.1; O2SAT 97
[2020-02-11 10:20] VITALS: BP 137/72; PULSE 84; RESP 20
[2020-02-11 10:35] VITALS: BP 140/74; PULSE 90; RESP 20
[2020-02-13 12:30] LABS: Adrenocorticotropic Hormone 4.5 pg/mL (7.2-63.3)
== END 2020-02-11 11:00 | disposition home or self-care (01) ==
LOC: INF 08:40
PROVIDERS: Visit Provider Internal Medicine Medical Oncology
DX: Z51.11 Encounter for antineoplastic chemotherapy (principal); C34.91 Malignant neoplasm of unspecified part of right bronchus or lung
CPT/HCPCS: 80053; 82024; 82533; 84443; 85025; 96413; J1642; J9271

== ENCOUNTER 2020-03-01 13:27 | Outpatient (CLI) | payer BC, MEDICARE, SELFPAY ==
[2020-03-01 13:55] LABS: Blood Urea Nitrogen 17 mg/dl (9-20); Estimated Glomerular Filt Rate 95 ml/min (>60); GFR (African American) 115 ML/MIN (>60)
== END 2020-03-01 13:43 | disposition home or self-care (01) ==
LOC: LAB 13:27 → INF 13:47
PROVIDERS: Visit Provider Internal Medicine Medical Oncology
DX: C34.90 Malignant neoplasm of unspecified part of unspecified bronchus or lung (principal)
CPT/HCPCS: 36415; 82565; 84520; J1642

== ENCOUNTER 2020-03-02 08:51 | Outpatient (CLI) | payer BC, MEDICARE, SELFPAY ==
--- NOTE | 2020-03-02 08:57 | CT_ITS ---
PROCEDURE: CT ABDOMEN PELVIS W CON CLINICAL INDICATION: LUNG CA Lung cancer f/u currently on chemo No new symptoms COMPARISON: CT CT CHEST WO CON from 07/04/2019 TECHNIQUE: IV Contrast: 75ML OPTIRAY 350 Oral Contrast None Axial images obtained with sagittal and coronal reformats. All CT scans at the facility use one or more dose reduction, viz: automated exposure control, ma/kV adjustment per patient size (including targeted exams where dose is matched to indication, i.e. head), or iterative reconstruction technique. FINDINGS: LOWER THORAX: Please see chest CT report ABDOMEN & PELVIS: There are multiple gallstones present. There is dilatation of the common bile duct measuring up to 17 mm in diameter. The cystic duct and intrahepatic biliary radicles are also present. There is mild thickening of the wall of the common hepatic and common bile duct. A calcified common duct stone is not identified. MRCP may provide further evaluation. No focal liver lesions are apparent. The spleen, pancreas, and right adrenal gland are unremarkable. There is a complex left renal mass once again noted measuring up to 5.3 x 4.6 cm not significantly changed. The mass contains coarse calcifications. There is a 2 cm right renal cyst. No intestinal obstruction or free air. There is moderate amount of retained colonic feces. No evidence of appendicitis or diverticulitis. There is a faint area of calcification with increased soft tissue density in the left aspect of the urinary bladder measuring approximately 13 mm. Further investigation suggested. There is a small hiatal hernia. Coronary artery calcifications are noted. IMPRESSION: 1. No change left adrenal mass which. Adrenal carcinoma or metastatic disease is a consideration. 2. Cholelithiasis with dilated intra and extrahepatic biliary ducts with some mild thickening of the wall of the common bile duct. No calcified common duct stones apparent. Noncalcified stones are considered. MRCP may provide further evaluation. 3. Faint calcific lesion in the left aspect of the urinary bladder which could be secondary to neoplasm. Cystoscopy may provide further evaluation. Dictated by: Denver Veronica MD 03/03/2020 09:39 Denver Veronica MD in [place] 03/03/2020 09:39
--- NOTE | 2020-03-02 08:57 | CT_ITS ---
PROCEDURE: CT CHEST W CON CLINCAL INDICATION: LUNG CA Lung cancer f/u on chmo no new symptoms COMPARISON: CT CT CHEST W CONTRAST from 05/19/[address] CHEST WO CON from 07/04/[address] ABDOMEN PELVIS W CON from 03/02/2020 TECHNIQUE: IV Contrast: 75ml Optiray 350 Axial images obtained with sagittal and coronal reformats. All CT scans at the facility use one or more dose reduction, viz: automated exposure control, ma/kV adjustment per patient size (including targeted exams where dose is matched to indication, i.e. head), or iterative reconstruction technique. FINDINGS: HEART AND MEDIASTINAL STRUCTURES: Increased soft tissue density once again noted in the left hilum which appears very slightly smaller compared to the previous exam and compared to 05/19/2019. Mildly prominent lymph nodes are noted in the precarinal and pretracheal region. The precarinal node appears slightly more prominent but could even be related to slice orientation artifact. Continued follow-up suggested. The precarinal node measures 1.5 x 1 cm. There is mild prominence of the right atrial appendage. LUNGS AND PLEURAL SPACES: COPD with centrilobular emphysema and scattered areas of scarring/fibrosis. There is a new parenchymal opacity in the right upper lobe centrally at 8 mm. A peripheral parenchymal opacity in the right upper lobe is present at 9 mm not significantly changed.. There are 2 subpleural nodules in the right upper lobe laterally at 3 mm unchanged 5 mm opacity right posterior costophrenic sulcus is unchanged. There is an irregular parenchymal opacity in the right lower lobe posteriorly measuring 2.2 x 1.2 cm. This is slightly increased in with compared to the previous exam measuring 2.2 x 0.9 cm. A subpleural nodules present in the right paraspinal region just superior to this area which measures 1.4 by 0.8 cm previously 1.2 by 0.7 cm. There is scattered small parenchymal opacities in the left upper lobe which are unchanged. Subpleural nodular opacities are present in the left lower lobe laterally not significantly changed. BONY STRUCTURES: No acute bony abnormalities apparent. UPPER ABDOMEN: See abdomen report ADDITIONAL FINDINGS: No other significant abnormalities. IMPRESSION: Abnormal chest CT with COPD centrilobular emphysema and pulmonary fibrotic changes. There are multiple bilateral parenchymal and subpleural opacities some of which are slightly larger compared to the previous exam also with mild mediastinal adenopathy which appears slightly more prominent. These findings are worrisome for some progression of metastatic disease. Continued follow-up is suggested. There is 1 new parenchymal opacity in the right upper lobe image 34 series 4 at 8 mm. Dictated by: Denver Veronica MD 03/03/2020 09:26 Denver Veronica MD in [place] 03/03/2020 09:26
== END 2020-03-02 09:35 | disposition home or self-care (01) ==
LOC: INF 08:52
PROVIDERS: PCP Family Medicine; Visit Provider Internal Medicine Medical Oncology
DX: C34.90 Malignant neoplasm of unspecified part of unspecified bronchus or lung (principal); Z03.89 Encounter for observation for other suspected diseases and conditions ruled out
CPT/HCPCS: 71260; 74177; 96523; J1642; Q9967

== ENCOUNTER 2020-03-25 08:40 | Outpatient (CLI) | payer BC, MEDICARE, SELFPAY ==
[2020-03-25 08:48] VITALS: BMI 27.5
[2020-03-25 09:16] LABS: Basophils # 0.1 K/mm3 (0-0.2); Basophils % 0.6 % (0.1-2.0); Eosinophils # 0.6 K/mm3 (0.0-0.4); Eosinophils % 5.6 % (0.1-12.0); Hematocrit 33.9 % (42.0-52.0); Hemoglobin 11.1 g/dL (14.1-18.0); Lymphocytes # 1.6 K/mm3 (0.7-4.5); Lymphocytes % 16.4 % (10-50); Mean Corpuscular HGB Conc 32.6 g/dL (31.8-35.4); Mean Corpuscular Hemoglobin 29.4 pg (27.0-31.2); Mean Corpuscular Volume 90.1 fl (80-94); Mean Platelet Volume 8.3 fl (7.4-10.4); Monocytes # 0.7 K/mm3 (0.1-1.0); Monocytes % 7.4 % (1.7-9.3); Neutrophils # 6.9 K/mm3 (1.8-7.8); Platelet Count 345 K/mm3 (142-424); Red Blood Count 3.76 M/mm3 (4.60-6.20); Red Cell Distribution Width 15.7 % (11.5-17.5); White Blood Count 9.9 K/mm3 (4.8-10.8)
[2020-03-25 09:25] LABS: Alanine Aminotransferase 127 U/L (12-78); Albumin Level 3.5 g/dl (3.5-5.0); Albumin/Globulin Ratio 1.1 (1.1-1.8); Alkaline Phosphatase 378 U/L (38-126); Anion Gap 11.8 mEq/L (5-15); Aspartate Amino Transferase 101 U/L (17-59); Bilirubin,Total 0.5 mg/dl (0.2-1.3); Blood Urea Nitrogen 19 mg/dl (9-20); Calcium 8.9 mg/dl (8.4-10.2); Carbon Dioxide 27 mmol/L (22.0-30.0); Chloride 102 mmol/L (98-107); Creatinine Clearance Estimated 86 mL/min (50-200); Estimated Glomerular Filt Rate 95 ml/min (>60); GFR (African American) 115 ML/MIN (>60); Globulin 3.3 g/dL (1.3-3.2); Glucose 123 mg/dl (74-100); Potassium 3.8 mmoL/L (3.5-5.1); Sodium 137 mmol/L (136-145); Total Protein,Serum 6.8 g/dl (6.3-8.2)
[2020-03-25 09:56] LABS: Thyroid Stimulating Hormone 4.22 uIU/mL (0.465-4.68)
== END 2020-03-25 10:30 | disposition home or self-care (01) ==
LOC: INF 08:46
PROVIDERS: Visit Provider Internal Medicine Medical Oncology
DX: C34.90 Malignant neoplasm of unspecified part of unspecified bronchus or lung (principal); Z03.89 Encounter for observation for other suspected diseases and conditions ruled out
CPT/HCPCS: 80053; 82024; 82533; 84443; 85025; J1642

== ENCOUNTER → 2020-03-30 10:09 | Outpatient (CLI) | payer BC, MEDICARE, SELFPAY | PROVIDERS: PCP Family Medicine; Visit Provider Internal Medicine Medical Oncology | DX: C34.90 Malignant neoplasm of unspecified part of unspecified bronchus or lung (principal); K83.8 Other specified diseases of biliary tract; R94.5 Abnormal results of liver function studies ==

== ENCOUNTER 2020-04-01 06:58 | Outpatient (CLI) | payer BC, MEDICARE, SELFPAY ==
--- NOTE | 2020-04-01 07:01 | MR_ITS ---
PROCEDURE: MR ABDOMEN WO CON CLINICAL INDICATION: LUNG CANCER, DUCT DILATION COMPARISON: CT CT CHEST W CONTRAST from 01/02/[address] ABDOMEN PELVIS W CON from 03/02/2020 TECHNIQUE: Routine multiplanar multi echo sequences are performed without gadolinium enhancement. MRCP images with 3D reformats FINDINGS: Cholelithiasis is present. There is dilation of the common hepatic duct measuring up 14 mm. Common bile duct is also dilated measuring up to 14 mm. The common bile duct does taper distally. On the coronal reformatted images there is question tiny stone in the distal common duct. This however is questionable. No large stones are present.. The pancreatic duct is not dilated. Left adrenal mass is noted measuring 5 by 4 cm. The mass does not demonstrate signal dropout as 1 would expect for an adenoma on the out of phase images.. There are a few spots of signal dropout corresponding to small amount of fat within the mass and also corresponding to calcifications within the mass as seen on CT scan. There are 2 right renal cyst measuring 2 and 1.2 cm. IMPRESSION: 1. Cholelithiasis. 2. Dilated biliary tree both intra and extrahepatic with common bile duct measuring up to 14 mm which tapers distally. Questionable small stones distally on the coronal reformatted images. No large stones evident. Distal common duct stricture is however considered. Suggest ERCP for further evaluation. 3. Left adrenal mass. The mass does not show typical findings of adrenal adenoma however there are some areas of macroscopic fat and calcium. The differential diagnosis would include adrenal myelolipoma, adrenal carcinoma, or metastatic disease. The lesion has been stable in size over 1 year, favoring adrenal myelolipoma. Dictated by: Denver Veronica MD 04/01/2020 08:35 Denver Veronica MD in [place] 04/01/2020 08:35
[2020-04-01 08:17] VITALS: BMI 27.5
[2020-04-01 08:53] LABS: Basophils # 0.1 K/mm3 (0-0.2); Basophils % 0.6 % (0.1-2.0); Eosinophils # 0.7 K/mm3 (0.0-0.4); Eosinophils % 7.6 % (0.1-12.0); Hematocrit 36.2 % (42.0-52.0); Hemoglobin 11.5 g/dL (14.1-18.0); Lymphocytes # 1.5 K/mm3 (0.7-4.5); Lymphocytes % 17.2 % (10-50); Mean Corpuscular HGB Conc 31.7 g/dL (31.8-35.4); Mean Corpuscular Hemoglobin 28.9 pg (27.0-31.2); Mean Corpuscular Volume 91.2 fl (80-94); Mean Platelet Volume 7.9 fl (7.4-10.4); Monocytes # 0.6 K/mm3 (0.1-1.0); Monocytes % 6.5 % (1.7-9.3); Neutrophils # 5.9 K/mm3 (1.8-7.8); Neutrophils % 68.1 % (37.0-80.0); Platelet Count 346 K/mm3 (142-424); Red Blood Count 3.96 M/mm3 (4.60-6.20); Red Cell Distribution Width 15.7 % (11.5-17.5); White Blood Count 8.7 K/mm3 (4.8-10.8)
[2020-04-01 09:06] LABS: Alanine Aminotransferase 120 U/L (12-78); Albumin Level 3.5 g/dl (3.5-5.0); Alkaline Phosphatase 409 U/L (38-126); Anion Gap 11.8 mEq/L (5-15); Aspartate Amino Transferase 134 U/L (17-59); Bilirubin,Total 0.6 mg/dl (0.2-1.3); Blood Urea Nitrogen 22 mg/dl (9-20); Calcium 8.9 mg/dl (8.4-10.2); Carbon Dioxide 28 mmol/L (22.0-30.0); Chloride 106 mmol/L (98-107); Creatinine Clearance Estimated 86 mL/min (50-200); Estimated Glomerular Filt Rate 95 ml/min (>60); GFR (African American) 115 ML/MIN (>60); Globulin 3.4 g/dL (1.3-3.2); Glucose 106 mg/dl (74-100); Potassium 3.8 mmoL/L (3.5-5.1); Sodium 142 mmol/L (136-145); Total Protein,Serum 6.9 g/dl (6.3-8.2)
== END 2020-04-01 10:00 | disposition home or self-care (01) ==
PROVIDERS: PCP Family Medicine; Visit Provider Internal Medicine Medical Oncology
DX: C34.91 Malignant neoplasm of unspecified part of right bronchus or lung (principal); K83.9 Disease of biliary tract, unspecified
CPT/HCPCS: 74181; 76376; 80053; 85025; J1642

== ENCOUNTER 2020-04-08 11:15 | Outpatient (CLI) | payer BC, MEDICARE, SELFPAY ==
[2020-04-08 11:20] VITALS: BMI 27.5
[2020-04-08 11:36] LABS: Basophils % 0.4 % (0.1-2.0); Eosinophils # 0.9 K/mm3 (0.0-0.4); Eosinophils % 7.6 % (0.1-12.0); Hematocrit 32.3 % (42.0-52.0); Hemoglobin 10.1 g/dL (14.1-18.0); Lymphocytes # 2.7 K/mm3 (0.7-4.5); Lymphocytes % 24.3 % (10-50); Mean Corpuscular HGB Conc 31.4 g/dL (31.8-35.4); Mean Corpuscular Hemoglobin 28.9 pg (27.0-31.2); Mean Platelet Volume 8.1 fl (7.4-10.4); Monocytes # 0.8 K/mm3 (0.1-1.0); Monocytes % 7.5 % (1.7-9.3); Neutrophils # 6.7 K/mm3 (1.8-7.8); Neutrophils % 60.3 % (37.0-80.0); Platelet Count 374 K/mm3 (142-424); Red Blood Count 3.51 M/mm3 (4.60-6.20); White Blood Count 11.1 K/mm3 (4.8-10.8)
[2020-04-08 11:40] LABS: Chloride 106 mmol/L (98-107); Potassium 3.5 mmoL/L (3.5-5.1); Sodium 140 mmol/L (136-145)
[2020-04-08 11:43] LABS: Alanine Aminotransferase 174 U/L (12-78); Albumin Level 3.1 g/dl (3.5-5.0); Albumin/Globulin Ratio 1.1 (1.1-1.8); Alkaline Phosphatase 264 U/L (38-126); Anion Gap 8.5 mEq/L (5-15); Aspartate Amino Transferase 125 U/L (17-59); Bilirubin,Total 0.6 mg/dl (0.2-1.3); Blood Urea Nitrogen 18 mg/dl (9-20); Calcium 8.6 mg/dl (8.4-10.2); Carbon Dioxide 29 mmol/L (22.0-30.0); Creatinine Clearance Estimated 86 mL/min (50-200); Estimated Glomerular Filt Rate 95 ml/min (>60); GFR (African American) 115 ML/MIN (>60); Globulin 2.9 g/dL (1.3-3.2); Glucose 111 mg/dl (74-100)
== END 2020-04-08 11:29 | disposition home or self-care (01) ==
LOC: INF 11:18
PROVIDERS: Visit Provider Internal Medicine Medical Oncology
DX: C34.91 Malignant neoplasm of unspecified part of right bronchus or lung (principal); Z45.2 Encounter for adjustment and management of vascular access device
CPT/HCPCS: 80053; 85025; J1642

== ENCOUNTER 2020-04-15 12:20 | Outpatient (CLI) | payer BC, MEDICARE, SELFPAY ==
[2020-04-15 12:25] VITALS: BMI 29.4
[2020-04-15 12:35] LABS: Basophils # 0.1 K/mm3 (0-0.2); Basophils % 0.7 % (0.1-2.0); Eosinophils # 0.5 K/mm3 (0.0-0.4); Eosinophils % 4.8 % (0.1-12.0); Hematocrit 31.9 % (42.0-52.0); Hemoglobin 10.1 g/dL (14.1-18.0); Lymphocytes # 2.2 K/mm3 (0.7-4.5); Lymphocytes % 19.9 % (10-50); Mean Corpuscular HGB Conc 31.7 g/dL (31.8-35.4); Mean Corpuscular Volume 91.3 fl (80-94); Mean Platelet Volume 9.7 fl (7.4-10.4); Monocytes # 0.7 K/mm3 (0.1-1.0); Monocytes % 6.5 % (1.7-9.3); Neutrophils # 7.5 K/mm3 (1.8-7.8); Neutrophils % 68.1 % (37.0-80.0); Platelet Count 292 K/mm3 (142-424); Red Cell Distribution Width 16.4 % (11.5-17.5)
[2020-04-15 12:40] LABS: Chloride 108 mmol/L (98-107); Potassium 3.9 mmoL/L (3.5-5.1); Sodium 141 mmol/L (136-145)
[2020-04-15 12:43] LABS: Alanine Aminotransferase 142 U/L (12-78); Albumin Level 3.4 g/dl (3.5-5.0); Albumin/Globulin Ratio 1.1 (1.1-1.8); Alkaline Phosphatase 261 U/L (38-126); Anion Gap 8.9 mEq/L (5-15); Aspartate Amino Transferase 68 U/L (17-59); Bilirubin,Total 0.5 mg/dl (0.2-1.3); Blood Urea Nitrogen 19 mg/dl (9-20); Calcium 8.8 mg/dl (8.4-10.2); Carbon Dioxide 28 mmol/L (22.0-30.0); Creatinine Clearance Estimated 92 mL/min (50-200); Estimated Glomerular Filt Rate 83 ml/min (>60); GFR (African American) 100 ML/MIN (>60); Glucose 110 mg/dl (74-100); Total Protein,Serum 6.4 g/dl (6.3-8.2)
== END 2020-04-15 12:35 | disposition home or self-care (01) ==
LOC: INF 12:23
PROVIDERS: Visit Provider Internal Medicine Medical Oncology
DX: C34.91 Malignant neoplasm of unspecified part of right bronchus or lung (principal); Z45.2 Encounter for adjustment and management of vascular access device
CPT/HCPCS: 80053; 85025; J1642

== ENCOUNTER → 2020-04-24 09:23 | Outpatient (CLI) | payer BC, MEDICARE, SELFPAY ==
[2020-04-24 11:11] LABS: Coronavirus 19 IgG Antibody Negative (Negative); Coronavirus 19 IgM Antibody Negative (Negative)
== END ==
PROVIDERS: Visit Provider Internal Medicine Gastroenterology
DX: Z01.89 Encounter for other specified special examinations (principal); Z96.89 Presence of other specified functional implants
CPT/HCPCS: 36415; 86328

== ENCOUNTER 2020-04-26 13:04 | Day surgery (SDC) | payer BC, MEDICARE, SELFPAY ==
[2020-04-20 14:07] VITALS: BMI 28.5
[2020-04-26] VITALS (8 sets, daily range): BP systolic 121–165; BP diastolic 71–88; PULSE 86–117; RESP 15–18; TEMP 36.3–36.6; O2SAT 98–100
--- NOTE | 2020-04-26 15:44 | P.PCN_ITS ---
[facility] Procedure Note Procedure Note:: ERCP procedure Report: Endoscopic retrograde cholangiopancreatography with biliary sphincterotomy and balloon extraction Endoscopist: Bandar Monahan II, MD Referring Physician: Jyoti Reza MD Date of Procedure: April 26, 2020 Equipment: Olympus 180 side viewing endoscope duodenoscope Sedation: MAC sedation Indication: Mr. Otto is a 74-year-old gentleman with elevated liver chemistries and a dilated biliary system. The patient reports no abdominal pain or weight loss. He reports no nausea or vomiting. His lab work from April 01, 2020 showed alkaline phosphatase 409 and ALT 120. His total bilirubin was 0.6. The patient reports no fever, darkened urine or acholic stools. The patient did have a CT scan of the abdomen and pelvis showing a dilated biliary system with a 14 mm CBD and questionable stones in the distal CBD. The patient reports no prior history of pancreatitis. He does have metastatic lung cancer. Procedure: Prior to the procedure, a history and physical exam was performed, and patient's medications and allergies were reviewed. The risks, benefits and alternatives of the sedation and procedure were discussed with the patient. All questions were answered and informed consent was obtained. The patient was brought to the fluoroscopic radiology room. Patient identification and proposed procedure were verified by the physician and the nurse. The patient was placed in a swimmer's position between left lateral decubitus and prone position and the scope was passed under direct vision. Throughout the procedure, the patient's blood pressure, pulse, and oxygen saturations were monitored continuously. The ERCP was accomplished without difficulty. The patient tolerated the procedure well. Findings: The duodenal scope was passed directly into the upper esophagus and advanced to the second portion of the duodenum. There was a medium sized hiatal hernia. There was mild reactive gastropathy. The duodenum was normal. The ampulla was normal in appearance. Both the common bile duct and pancreatic duct were cannulated. Only a portion of the pancreatic duct was injected with contrast and the pancreatic duct was normal in the head and neck of the pancreas. The CBD was freely cannulated. The cholangiogram did show a 12 to 13 mm common bile duct with normal filling of the intrahepatic biliary system. There was stones or sludge (irregular filling defect) distally within the common bile duct. A generous biliary sphincterotomy was performed. Next, a 9 to 12 mm sweeping balloon was placed at the hilum and swept through the biliary system. The first pass yielded some sludge. The second pass of the sweeping balloon yielded mostly bile and contrast and no further debris and no stones. Repeat cholangiography showed no further filling defects. Impression: 1. Distal CBD choledocholithiasis (sludge/gallstones) status post biliary clear ance Plan: The patient should have repeat liver chemistries again in 2 weeks to ensure that these decline appropriately. He was clinically asymptomatic. I would repeat liver chemistries to ensure that there is no specific intrahepatic cholestasis. I will discuss findings with the patient and family.
--- NOTE | 2020-04-26 15:53 | FL_ITS ---
PROCEDURE: FL ERCP CLINICAL INDICATION: Choledocholithiasis, dilated biliary tree COMPARISON: MR MR ABDOMEN WO CON from 04/01/2020 FINDINGS: Fluoroscopy time: 2 minutes and 34 seconds. There is a dilated common bile duct with small filling defects in the distal aspect of the common bile duct consistent with common duct stone. There was some minimal filling of the accessory pancreatic duct. IMPRESSION: Dilated common bile duct with choledocholithiasis Dictated by: Denver Veronica MD 04/27/2020 17:43 Denver Veronica MD in [place] 04/27/2020 17:43
--- NOTE | 2020-04-26 16:24 | HMH.ANESCL ---
[facility] Anesthesia Checklist - Structural Data Admitted From: Home Planned Operative Procedure/s: ercp Consent for Planned Operative Procedure(s) Verified: Yes - Airway Assessment C-Spine Mobility Assessed: Yes TMJ Mobility Assessed: Yes Dentition: Edentulous - Neurological Assessment Level of Consciousness: Awake, Alert, Appropriate - Anesthesia Plan Anesthesia Risk discussed: Yes Anesthesia Plan: Verified ASA Class: III Anesthesia Type: MAC [facility] History I have reviewed the patient's past medical history: Yes Medical History: Reports:: Atrial Fibrillation, Cancer, Chronic Obstructive Pulmonary Disease (COPD), Coronary Artery Disease, Hyperlipidemia, Hypertension Denies:: Diabetes Mellitus Type 1, Diabetes Mellitus Type 2, Internal Pacemaker, MRSA, Seizures *Have you ever received a pneumonia vaccine?: No *Have you received a flu vaccine this season?: No Other Medical History: Reports: Cataracts, Chemotherapy Anesthesia experience/problems:: none Laterality Cases: Right: Other, Bilateral: Total Knee Replacement Other Surgeries: Yes: Cardiac Catheterization, Coronary Stent. No: Pacemaker Amputation: No Fractures: No - *Social History Last grade of school completed: High school graduate Smoking Status: Former smoker Tobacco Type: cigarettes # Packs/Day (cigarettes): 1 #Yrs smoked (if former smoker): 60 Alcohol Intake: never Substance Use Type: denies use *Occupational Status:: retired Housing: house Household Members: spouse *Travel in the last 8 weeks: None Family Hx:: No significant family history
== END 2020-04-26 17:15 | disposition home or self-care (01) ==
LOC: OUTP 13:06
PROVIDERS: PCP Family Medicine; Visit Provider Internal Medicine Gastroenterology
PROC: (CPT 43262; principal; 2020-04-26 14:30)
DX: K80.50 Calculus of bile duct without cholangitis or cholecystitis without obstruction (principal); C34.90 Malignant neoplasm of unspecified part of unspecified bronchus or lung; R94.5 Abnormal results of liver function studies; K83.8 Other specified diseases of biliary tract; I48.91 Unspecified atrial fibrillation; J44.9 Chronic obstructive pulmonary disease, unspecified; I25.10 Atherosclerotic heart disease of native coronary artery without angina pectoris; E78.5 Hyperlipidemia, unspecified; I10 Essential (primary) hypertension; N28.9 Disorder of kidney and ureter, unspecified; M10.9 Gout, unspecified; Z79.01 Long term (current) use of anticoagulants
CPT/HCPCS: 43262; 43264; 74330; J1642

== ENCOUNTER 2020-04-29 13:30 | Outpatient (CLI) | payer BC, MEDICARE, SELFPAY ==
[2020-04-29 13:36] VITALS: BMI 28.7
[2020-04-29 13:48] LABS: Basophils # 0.1 K/mm3 (0-0.2); Basophils % 0.7 % (0.1-2.0); Eosinophils # 0.6 K/mm3 (0.0-0.4); Eosinophils % 7.9 % (0.1-12.0); Hematocrit 35.7 % (42.0-52.0); Hemoglobin 10.8 g/dL (14.1-18.0); Lymphocytes # 1.8 K/mm3 (0.7-4.5); Mean Corpuscular HGB Conc 30.2 g/dL (31.8-35.4); Mean Corpuscular Hemoglobin 28.2 pg (27.0-31.2); Mean Corpuscular Volume 93.5 fl (80-94); Mean Platelet Volume 8.5 fl (7.4-10.4); Monocytes # 0.6 K/mm3 (0.1-1.0); Monocytes % 8.2 % (1.7-9.3); Neutrophils # 4.1 K/mm3 (1.8-7.8); Neutrophils % 57.2 % (37.0-80.0); Platelet Count 456 K/mm3 (142-424); Red Blood Count 3.81 M/mm3 (4.60-6.20); Red Cell Distribution Width 15.9 % (11.5-17.5); White Blood Count 7.1 K/mm3 (4.8-10.8)
[2020-04-29 13:53] LABS: Chloride 106 mmol/L (98-107); Sodium 141 mmol/L (136-145)
[2020-04-29 13:54] LABS: Potassium 3.3 mmoL/L (3.5-5.1)
[2020-04-29 13:56] LABS: Alanine Aminotransferase 167 U/L (12-78); Albumin Level 3.5 g/dl (3.5-5.0); Albumin/Globulin Ratio 1.1 (1.1-1.8); Alkaline Phosphatase 505 U/L (38-126); Anion Gap 11.3 mEq/L (5-15); Aspartate Amino Transferase 109 U/L (17-59); Bilirubin,Total 0.7 mg/dl (0.2-1.3); Blood Urea Nitrogen 14 mg/dl (9-20); Carbon Dioxide 27 mmol/L (22.0-30.0); Creatinine Clearance Estimated 89 mL/min (50-200); Estimated Glomerular Filt Rate 83 ml/min (>60); GFR (African American) 100 ML/MIN (>60); Globulin 3.2 g/dL (1.3-3.2); Total Protein,Serum 6.7 g/dl (6.3-8.2)
[2020-04-29 13:57] LABS: Calcium 8.8 mg/dl (8.4-10.2); Glucose 111 mg/dl (74-100)
== END 2020-04-29 14:38 | disposition home or self-care (01) ==
LOC: INF 13:34
PROVIDERS: Visit Provider Internal Medicine Medical Oncology
DX: C34.91 Malignant neoplasm of unspecified part of right bronchus or lung (principal)
CPT/HCPCS: 80053; 85025; J1642

== ENCOUNTER 2020-05-07 08:21 | Outpatient (CLI) | payer BC, MEDICARE, SELFPAY ==
[2020-05-07 08:23] VITALS: BMI 28.3
[2020-05-07 08:54] LABS: Basophils # 0.1 K/mm3 (0-0.2); Eosinophils # 0.4 K/mm3 (0.0-0.4); Eosinophils % 5.5 % (0.1-12.0); Hematocrit 36.2 % (42.0-52.0); Hemoglobin 10.7 g/dL (14.1-18.0); Lymphocytes # 2.5 K/mm3 (0.7-4.5); Lymphocytes % 31.8 % (10-50); Mean Corpuscular HGB Conc 29.7 g/dL (31.8-35.4); Mean Corpuscular Hemoglobin 27.5 pg (27.0-31.2); Mean Corpuscular Volume 92.6 fl (80-94); Mean Platelet Volume 7.7 fl (7.4-10.4); Monocytes # 0.6 K/mm3 (0.1-1.0); Monocytes % 7.8 % (1.7-9.3); Neutrophils # 4.2 K/mm3 (1.8-7.8); Neutrophils % 53.9 % (37.0-80.0); Platelet Count 491 K/mm3 (142-424); Red Blood Count 3.91 M/mm3 (4.60-6.20); White Blood Count 7.7 K/mm3 (4.8-10.8)
[2020-05-07 08:58] LABS: Chloride 108 mmol/L (98-107); Potassium 3.6 mmoL/L (3.5-5.1); Sodium 139 mmol/L (136-145)
[2020-05-07 09:00] LABS: Blood Urea Nitrogen 17 mg/dl (9-20); Creatinine Clearance Estimated 87 mL/min (50-200); Estimated Glomerular Filt Rate 94 ml/min (>60); GFR (African American) 114 ML/MIN (>60)
[2020-05-07 09:01] LABS: Alanine Aminotransferase 127 U/L (12-78); Albumin Level 3.3 g/dl (3.5-5.0); Albumin/Globulin Ratio 1.1 (1.1-1.8); Alkaline Phosphatase 469 U/L (38-126); Anion Gap 9.6 mEq/L (5-15); Aspartate Amino Transferase 114 U/L (17-59); Bilirubin,Total 0.7 mg/dl (0.2-1.3); Calcium 8.4 mg/dl (8.4-10.2); Carbon Dioxide 25 mmol/L (22.0-30.0); Globulin 3.1 g/dL (1.3-3.2); Glucose 104 mg/dl (74-100); Total Protein,Serum 6.4 g/dl (6.3-8.2)
[2020-05-07 10:06] VITALS: BP 127/62; PULSE 94; RESP 18; TEMP 36.3; O2SAT 97
[2020-05-07 10:36] VITALS: BP 132/74; PULSE 92; RESP 18; O2SAT 99
[2020-05-07 10:50] VITALS: BP 148/74; PULSE 90; RESP 18; O2SAT 99
[2020-05-07 11:29] LABS: Thyroid Stimulating Hormone 8.97 uIU/mL (0.465-4.68)
[2020-05-10 23:16] LABS: Adrenocorticotropic Hormone 2.7 pg/mL (7.2-63.3)
== END 2020-05-07 10:55 | disposition home or self-care (01) ==
LOC: INF 08:21
PROVIDERS: Visit Provider Internal Medicine Medical Oncology
DX: Z51.11 Encounter for antineoplastic chemotherapy (principal); C34.91 Malignant neoplasm of unspecified part of right bronchus or lung
CPT/HCPCS: 80053; 82024; 82533; 84443; 85025; 96413; J1642; J9271

== ENCOUNTER 2020-05-14 09:56 | Outpatient (CLI) | payer BC, MEDICARE, SELFPAY ==
[2020-05-14 09:56] VITALS: BMI 29.1
[2020-05-14 10:39] LABS: Chloride 106 mmol/L (98-107); Potassium 3.3 mmoL/L (3.5-5.1); Sodium 141 mmol/L (136-145)
[2020-05-14 10:42] LABS: Alanine Aminotransferase 133 U/L (12-78); Albumin Level 3.5 g/dl (3.5-5.0); Albumin/Globulin Ratio 1.1 (1.1-1.8); Alkaline Phosphatase 545 U/L (38-126); Anion Gap 9.3 mEq/L (5-15); Aspartate Amino Transferase 141 U/L (17-59); Bilirubin,Total 0.9 mg/dl (0.2-1.3); Blood Urea Nitrogen 15 mg/dl (9-20); Carbon Dioxide 29 mmol/L (22.0-30.0); Creatinine Clearance Estimated 89 mL/min (50-200); Estimated Glomerular Filt Rate 110 ml/min (>60); GFR (African American) 133 ML/MIN (>60); Globulin 3.3 g/dL (1.3-3.2); Total Protein,Serum 6.8 g/dl (6.3-8.2)
[2020-05-14 10:43] LABS: Glucose 101 mg/dl (74-100)
== END 2020-05-14 10:10 | disposition home or self-care (01) ==
LOC: INF 09:56
PROVIDERS: Visit Provider Internal Medicine Medical Oncology
DX: C34.91 Malignant neoplasm of unspecified part of right bronchus or lung (principal); Z45.2 Encounter for adjustment and management of vascular access device
CPT/HCPCS: 80053; J1642

== ENCOUNTER → 2020-05-25 08:18 | Outpatient (CLI) | payer BC, MEDICARE, SELFPAY ==
[2020-05-25 09:30] LABS: INR 2.05 (0.9-1.1); Prothrombin Time 21.3 seconds (9.4-11.8)
[2020-05-25 10:02] LABS: Chloride 110 mmol/L (98-107); Sodium 144 mmol/L (136-145)
[2020-05-25 10:03] LABS: Potassium 3.2 mmoL/L (3.5-5.1)
[2020-05-25 10:05] LABS: Alanine Aminotransferase 123 U/L (12-78); Alkaline Phosphatase 641 U/L (38-126); Anion Gap 10.2 mEq/L (5-15); Aspartate Amino Transferase 122 U/L (17-59); Blood Urea Nitrogen 15 mg/dl (9-20); Calcium 8.6 mg/dl (8.4-10.2); Carbon Dioxide 27 mmol/L (22.0-30.0); Estimated Glomerular Filt Rate 110 ml/min (>60); GFR (African American) 133 ML/MIN (>60); Glucose 120 mg/dl (74-100); Iron 55 ug/dL (49-181)
[2020-05-25 10:07] LABS: Albumin Level 3.4 g/dl (3.5-5.0); Albumin/Globulin Ratio 1.2 (1.1-1.8); Globulin 2.9 g/dL (1.3-3.2); Total Protein,Serum 6.3 g/dl (6.3-8.2)
[2020-05-25 10:15] LABS: Total Iron Binding Capacity 474 ug/dL (261-462)
[2020-05-25 10:41] LABS: Ferritin 40.7 ng/ml (17.9-464)
[2020-05-25 12:18] LABS: Basophils % 0.6 % (0.1-2.0); Eosinophils # 0.7 K/mm3 (0.0-0.4); Eosinophils % 8.3 % (0.1-12.0); Hematocrit 37.3 % (42.0-52.0); Hemoglobin 11.2 g/dL (14.1-18.0); Lymphocytes # 1.3 K/mm3 (0.7-4.5); Lymphocytes % 17.4 % (10-50); Mean Corpuscular Hemoglobin 27.5 pg (27.0-31.2); Mean Corpuscular Volume 91.8 fl (80-94); Mean Platelet Volume 8.6 fl (7.4-10.4); Monocytes # 0.5 K/mm3 (0.1-1.0); Monocytes % 6.7 % (1.7-9.3); Neutrophils # 5.2 K/mm3 (1.8-7.8); Platelet Count 403 K/mm3 (142-424); Red Blood Count 4.07 M/mm3 (4.60-6.20); Red Cell Distribution Width 16.4 % (11.5-17.5); White Blood Count 7.7 K/mm3 (4.8-10.8)
[2020-05-26 11:16] LABS: Hep A Ab, IgM Negative (Negative); Hepatitis B Core Antibody IgM Negative (Negative); Hepatitis B Surface Antigen Negative (Negative); Immunoglobulin A, Qn 277 mg/dL (61-437); Immunoglobulin G, Qn 1106 mg/dL (603-1613)
[2020-05-27 09:05] LABS: Actin (Smooth Muscle) Antibody 17 Units (0-19); Angiotensin Converting Enzyme 89 U/L (14-82); Hepatitis C Antibody <0.1 s/co ratio (0.0-0.9); Immunoglobulin M, Qn 52 mg/dL (15-143); Liver-Kidney Microsomal Ab 4.1 Units (0.0-20.0); Mitochondrial (M2) Antibody 24.1 Units (0.0-20.0)
[2020-05-27 20:01] LABS: Antinuclear Antibodies, IFA Positive (.)
[2020-05-28 06:25] LABS: ALT (SGPT) P5P 118 IU/L (0-55); AST (SGOT) P5P 112 IU/L (0-40); Alpha 2-Macroglobulins, Qn 230 mg/dL (110-276); Apolipoprotein A-1 142 mg/dL (101-178); Bilirubin, Total 0.7 mg/dL (0.0-1.2); Cholesterol, Total 139 mg/dL (100-199); Fibrosis Score 0.78 (0.00-0.21); GGT 953 IU/L (0-65); Glucose 121 mg/dL (65-99); Haptoglobin 193 mg/dL (34-355); Steatosis Score 0.87 (0.00-0.30); Triglycerides 99 mg/dL (0-149)
[2020-05-28 16:12] LABS: Alpha-1-Antitrypsin 217 mg/dL (101-187)
== END ==
LOC: LAB 08:27 → INF 08:44
PROVIDERS: Visit Provider Internal Medicine Gastroenterology
DX: R94.5 Abnormal results of liver function studies (principal); C34.80 Malignant neoplasm of overlapping sites of unspecified bronchus and lung
CPT/HCPCS: 36415; 80053; 80074; 82103; 82104; 82164; 82728; 82784; 83540; 83550; 85025; 85610; 86038; 86255; 86256; 86376; J1642

== ENCOUNTER 2020-05-27 09:21 | Outpatient (CLI) | payer BC, MEDICARE, SELFPAY ==
[2020-05-27 09:44] VITALS: BMI 29.1
[2020-05-27 10:09] VITALS: BP 157/69; PULSE 84; RESP 20; TEMP 36.3; O2SAT 98
[2020-05-27 10:39] VITALS: BP 124/68; PULSE 81; RESP 20; O2SAT 97
[2020-05-27 10:50] VITALS: BP 114/67; PULSE 77; RESP 20; O2SAT 97
[2020-05-27 11:57] LABS: Thyroid Stimulating Hormone 2.91 uIU/mL (0.465-4.68)
[2020-05-28 18:57] LABS: Adrenocorticotropic Hormone 2.6 pg/mL (7.2-63.3)
== END 2020-05-27 10:50 | disposition home or self-care (01) ==
LOC: INF 09:21
PROVIDERS: Visit Provider Internal Medicine Medical Oncology
DX: Z51.11 Encounter for antineoplastic chemotherapy (principal); C34.91 Malignant neoplasm of unspecified part of right bronchus or lung
CPT/HCPCS: 82024; 82533; 84443; 96413; J1642; J9271

== ENCOUNTER 2020-06-14 09:19 | Outpatient (CLI) | payer BC, MEDICARE, SELFPAY ==
[2020-06-14 09:07] VITALS: BMI 29.4
--- NOTE | 2020-06-14 09:35 | CT_ITS ---
PROCEDURE: CT ABDOMEN PELVIS W CON CLINICAL INDICATION: LUNG CANCER F/U COMPARISON: CT CT CHEST W CONTRAST from 01/02/[address] ABDOMEN PELVIS W CON from 03/02/2020 MR MR ABDOMEN WO CON from 04/01/2020 TECHNIQUE: IV Contrast: 75ML Isovue 370 Oral Contrast None Axial images obtained with sagittal and coronal reformats. All CT scans at the facility use one or more dose reduction, viz: automated exposure control, ma/kV adjustment per patient size (including targeted exams where dose is matched to indication, i.e. head), or iterative reconstruction technique. FINDINGS: No focal liver lesion is evident. There is mild diffuse intra and extrahepatic biliary ductal dilatation. There is mild thickening of the gallbladder wall and also mild diffuse thickening of the wall of the common bile duct. There may be a small amount of pericholecystic fluid. The dilated biliary tree has shown some improvement compared to the previous exam. There is a small hiatal hernia with mild thickening of the GE junction. There is a 7 mm hypodensity in the superior aspect of the spleen anteriorly nonspecific. Left adrenal mass is once again noted containing coarse calcifications measuring 5.4 x 4.4 cm not significantly changed. The right adrenal gland is unremarkable. There are multiple bilateral renal calculi as well as renal artery calcifications. There are few small lymph nodes in the retroperitoneum which are not significantly changed. No intestinal obstruction or free air. There is mild mucosal thickening of the antrum of the stomach and duodenal bulb which is nonspecific. There is a mild amount of retained colonic feces. There remains an enhancing focus along the left aspect of the urinary bladder measuring 15 mm not significantly changed. No acute bony findings. IMPRESSION: Overall stable CT appearance of the abdomen and pelvis. No change in the left adrenal mass which may represent primary adrenal carcinoma or metastatic focus. No change in the mild retroperitoneal adenopathy. No change in the enhancing mural nodule of the left aspect of the urinary bladder which could represent primary or metastatic malignancy. There is a small hypodense lesion of the spleen superiorly which is not significantly changed and is of questionable significance. Diffuse intra and extrahepatic biliary ductal dilatation which is slightly improved with the gallbladder wall showing mild thickening and possible minimal pericholecystic fluid. Dictated by: Denver Veronica MD 06/15/2020 13:20 Denver Veronica MD in [place] 06/15/2020 13:20
--- NOTE | 2020-06-14 09:35 | CT_ITS ---
PROCEDURE: CT CHEST W CON CLINCAL INDICATION: LUNG CANCER F/U COMPARISON: CT CT CHEST W CONTRAST from 01/02/[address] CHEST WO CON from 07/04/[address] CHEST W CON from 03/02/2020 TECHNIQUE: IV Contrast: 75ml Isovue 370 Axial images obtained with sagittal and coronal reformats. All CT scans at the facility use one or more dose reduction, viz: automated exposure control, ma/kV adjustment per patient size (including targeted exams where dose is matched to indication, i.e. head), or iterative reconstruction technique. FINDINGS: HEART AND MEDIASTINAL STRUCTURES: Small nodes are present in the mediastinum measuring 1.7 x 1 cm. Increased soft tissue density is present in the subcarinal region to the right of the esophagus consistent with mild adenopathy at 3 by 1.3 cm. There are dense coronary artery calcifications noted. There is mild thickening of the distal esophagus LUNGS AND PLEURAL SPACES: Centrilobular emphysema with pulmonary fibrotic changes are noted with scattered subpleural and pulmonary parenchymal opacities. A stellate appearing nodule is present in the right upper lobe measuring 8 mm similar compared to the previous exam. An additional 8 mm subpleural nodules present just lateral to this lesion unchanged. There is pulmonary fibrosis with interlobular septal thickening. 2 cm parenchymal opacity is present in the right lower lobe posteriorly which is stable. There are 2 subpleural nodular opacities in the left lower lobe anteriorly which are stable. There is an enlarging subpleural nodule in the right lower lobe medially in the paraspinal region measuring 13 mm.. Previously this nodule is barely perceptible measuring 5 x 3 mm. BONY STRUCTURES: No acute bony abnormalities apparent. UPPER ABDOMEN: See abdomen report ADDITIONAL FINDINGS: Gynecomastia IMPRESSION: Persistent small subpleural and parenchymal pulmonary opacities as previously described with mild mediastinal adenopathy suspicious for metastatic disease. There is an enlarging nodule in the right lower lobe medially at 13 by 10 mm previously 5 x 3 mm suspicious for an enlarging metastatic focus. Dictated by: Denver Veronica MD 06/15/2020 13:11 Denver Veronica MD in [place] 06/15/2020 13:11
[2020-06-14 09:38] LABS: Basophils # 0.1 K/mm3 (0-0.2); Basophils % 0.3 % (0.1-2.0); Eosinophils # 0.8 K/mm3 (0.0-0.4); Eosinophils % 4.9 % (0.1-12.0); Hematocrit 35.3 % (42.0-52.0); Hemoglobin 10.7 g/dL (14.1-18.0); Lymphocytes # 2.8 K/mm3 (0.7-4.5); Lymphocytes % 17.2 % (10-50); Mean Corpuscular HGB Conc 30.4 g/dL (31.8-35.4); Mean Corpuscular Hemoglobin 26.9 pg (27.0-31.2); Mean Corpuscular Volume 88.4 fl (80-94); Monocytes # 1.1 K/mm3 (0.1-1.0); Monocytes % 6.9 % (1.7-9.3); Neutrophils # 11.3 K/mm3 (1.8-7.8); Neutrophils % 70.6 % (37.0-80.0); Platelet Count 508 K/mm3 (142-424); Red Blood Count 3.99 M/mm3 (4.60-6.20); Red Cell Distribution Width 16.2 % (11.5-17.5)
[2020-06-14 09:39] LABS: Chloride 103 mmol/L (98-107); Sodium 140 mmol/L (136-145)
[2020-06-14 09:41] LABS: Blood Urea Nitrogen 19 mg/dl (9-20); Creatinine Clearance Estimated 90 mL/min (50-200); Estimated Glomerular Filt Rate 94 ml/min (>60); GFR (African American) 114 ML/MIN (>60)
[2020-06-14 09:42] LABS: Alanine Aminotransferase 161 U/L (12-78); Albumin Level 3.5 g/dl (3.5-5.0); Albumin/Globulin Ratio 1.1 (1.1-1.8); Alkaline Phosphatase 478 U/L (38-126); Aspartate Amino Transferase 136 U/L (17-59); Bilirubin,Total 0.9 mg/dl (0.2-1.3); Calcium 8.7 mg/dl (8.4-10.2); Carbon Dioxide 32 mmol/L (22.0-30.0); Globulin 3.2 g/dL (1.3-3.2); Glucose 110 mg/dl (74-100); Total Protein,Serum 6.7 g/dl (6.3-8.2)
[2020-06-14 09:48] LABS: MANUAL DIFFERENTIAL MANUAL DIFFERENTIAL (MANUAL DIFF)
[2020-06-14 09:57] LABS: Anion Gap 7.7 mEq/L (5-15); Potassium 2.7 mmoL/L (3.5-5.1)
[2020-06-14 10:04] LABS: Eosinophils % 5 % (0-3); Lymphocytes % 21 % (10-50); Monocytes % 5 % (2-9); Neutrophils % 69 % (42-76); Platelet Estimate Moderate Increase; RBC Morphology Normal; Total Cells Counted 100
== END 2020-06-14 10:34 | disposition home or self-care (01) ==
LOC: RAD 09:20
PROVIDERS: PCP Family Medicine; Visit Provider Internal Medicine Medical Oncology
DX: C34.91 Malignant neoplasm of unspecified part of right bronchus or lung (principal)
CPT/HCPCS: 71260; 74177; 80053; 85007; 85025; Q9967

== ENCOUNTER 2020-06-17 11:10 | Outpatient (CLI) | payer BC, MEDICARE, SELFPAY ==
[2020-06-17 11:50] VITALS: BP 157/93; PULSE 103; RESP 18; TEMP 36.4; O2SAT 96
[2020-06-17 12:31] VITALS: BP 179/80; PULSE 112; RESP 18
== END 2020-06-17 12:31 | disposition home or self-care (01) ==
LOC: INF 11:10
PROVIDERS: Visit Provider Internal Medicine Medical Oncology
DX: Z51.11 Encounter for antineoplastic chemotherapy (principal); C34.91 Malignant neoplasm of unspecified part of right bronchus or lung
CPT/HCPCS: 96413; J1642; J9271

== ENCOUNTER 2020-06-21 09:31 | Outpatient (CLI) | payer BC, MEDICARE, SELFPAY ==
[2020-06-21 09:34] VITALS: BMI 29.5
[2020-06-21 10:02] LABS: Basophils % 0.2 % (0.1-2.0); Eosinophils # 0.3 K/mm3 (0.0-0.4); Eosinophils % 2.1 % (0.1-12.0); Hematocrit 36.9 % (42.0-52.0); Hemoglobin 11.4 g/dL (14.1-18.0); Lymphocytes # 1.7 K/mm3 (0.7-4.5); Mean Corpuscular HGB Conc 30.8 g/dL (31.8-35.4); Mean Corpuscular Hemoglobin 26.9 pg (27.0-31.2); Mean Corpuscular Volume 87.3 fl (80-94); Mean Platelet Volume 8.3 fl (7.4-10.4); Monocytes # 0.7 K/mm3 (0.1-1.0); Monocytes % 4.5 % (1.7-9.3); Neutrophils # 12.8 K/mm3 (1.8-7.8); Neutrophils % 82.1 % (37.0-80.0); Platelet Count 444 K/mm3 (142-424); Red Blood Count 4.23 M/mm3 (4.60-6.20); Red Cell Distribution Width 16.5 % (11.5-17.5); White Blood Count 15.5 K/mm3 (4.8-10.8)
[2020-06-21 10:04] LABS: MANUAL DIFFERENTIAL MANUAL DIFFERENTIAL (MANUAL DIFF)
[2020-06-21 10:09] LABS: Chloride 101 mmol/L (98-107); Potassium 3.3 mmoL/L (3.5-5.1); Sodium 139 mmol/L (136-145)
[2020-06-21 10:11] LABS: Blood Urea Nitrogen 24 mg/dl (9-20); Creatinine Clearance Estimated 91 mL/min (50-200); Estimated Glomerular Filt Rate 82 ml/min (>60); GFR (African American) 100 ML/MIN (>60)
[2020-06-21 10:12] LABS: Alanine Aminotransferase 248 U/L (12-78); Albumin Level 3.8 g/dl (3.5-5.0); Albumin/Globulin Ratio 1.2 (1.1-1.8); Alkaline Phosphatase 534 U/L (38-126); Anion Gap 10.3 mEq/L (5-15); Aspartate Amino Transferase 152 U/L (17-59); Carbon Dioxide 31 mmol/L (22.0-30.0); Globulin 3.3 g/dL (1.3-3.2); Glucose 124 mg/dl (74-100); Total Protein,Serum 7.1 g/dl (6.3-8.2)
[2020-06-21 10:28] LABS: Eosinophils % 2 % (0-3); Lymphocytes % 11 % (10-50); Monocytes % 4 % (2-9); Neutrophils % 83 % (42-76); Platelet Estimate Normal; RBC Morphology Normal; Total Cells Counted 100
== END 2020-06-21 09:43 | disposition home or self-care (01) ==
LOC: INF 09:31
PROVIDERS: PCP Family Medicine; Visit Provider Nurse Practitioner Family
DX: Z45.2 Encounter for adjustment and management of vascular access device (principal); C34.91 Malignant neoplasm of unspecified part of right bronchus or lung
CPT/HCPCS: 80053; 85007; 85025; J1642

== ENCOUNTER 2020-07-05 07:18 | Day surgery (SDC) | payer BC, MEDICARE, SELFPAY ==
[2020-06-29 13:09] VITALS: BMI 27.1
[2020-07-05] VITALS (9 sets, daily range): BP systolic 114–181; BP diastolic 54–96; PULSE 102–124; RESP 16–18; TEMP 36.5–36.9; O2SAT 97–100
--- NOTE | 2020-07-05 08:04 | P.PCN_ITS ---
[facility] Procedure Note Procedure Note:: Procedure note: Percutaneous liver biopsy Sole Rounding Machine Operator: Bandar Monahan II, MD Referring physician: Ricardo Fulton MD Date of procedure: July 05, 2020 Equipment: 15-gauge Jamshidi needle Sedation: MAC sedation Indication: Mr. Otto is a 75-year-old gentleman with elevated liver chemistries. He had an MRI and CAT scan that showed biliary ductal dilation. His CAT scan had shown a CBD diameter of 14 mm. He did have an ERCP that possibly showed some sphincter of Oddi dysfunction (related to chronic pain medication (opiate pain medication)). The patient's alkaline phosphatase remained elevated. His fibrosis scores were in the range of cirrhosis. The Keytru was discontinuedda. He had an elevated CLAUDINE at a titer of 1: 160. He also had an elevated ELEONORA level (89). He also had a slightly elevated antimitochondrial antibody (24.1). The patient was placed on prednisone. His alkaline phosphatase had been at 400 and rafal up to 641. His last labs on prednisone revealed alkaline phosphatase 534 with ALT level 248. His viral hepatitis serologies were negative and the remainder of his work-up has been unremarkable. He reports no abdominal pain or jaundice. He reports no alcohol. Procedure: After informed consent the patient was prepped and draped in sterile fashion. An area in the 10th intercostal space on the right and the mid axillary line was marked. The area was anesthetized with 1% lidocaine into the deeper tissues. With one pass of the Jamshidi needle, a 2.5 cm specimen was obtained. The patient tolerated the procedure well and remains hemodynamically stable postprocedure. Impression: 1. Elevated liver chemistries/elevated alkaline phosphatase Plan: Follow-up biopsy results.
[2020-07-05 08:09] LABS: Coronavirus 19 IgG Antibody Negative (Negative); Coronavirus 19 IgM Antibody Negative (Negative)
--- NOTE | 2020-07-05 08:14 | P.PN_ITS ---
[facility] Anesthesia Checklist - Structural Data Admitted From: Home Planned Operative Procedure/s: liver bx Consent for Planned Operative Procedure(s) Verified: Yes - Airway Assessment C-Spine Mobility Assessed: Yes TMJ Mobility Assessed: Yes Dentition: Good Dentition - Neurological Assessment Level of Consciousness: Awake, Alert, Appropriate - Anesthesia Plan Anesthesia Risk discussed: Yes Anesthesia Plan: Verified ASA Class: III Anesthesia Type: MAC [facility] History I have reviewed the patient's past medical history: Yes Medical History: Reports:: Arrhythmia, Atrial Fibrillation, Cancer, Chronic Obstructive Pulmonary Disease (COPD), Coronary Artery Disease, Hyperlipidemia, Hypertension, MRSA (right leg) Denies:: Diabetes Mellitus Type 1, Diabetes Mellitus Type 2, Internal Pacemaker, Seizures *Have you ever received a pneumonia vaccine?: Yes *Have you received a flu vaccine this season?: Yes Other Medical History: Reports: Cataracts, Chemotherapy Anesthesia experience/problems:: none Laterality Cases: Right: Other, Bilateral: Arthroscopy Knee Other Surgeries: Yes: Cardiac Catheterization, Coronary Stent (6-7 years). No: Pacemaker Amputation: No Fractures: No - *Social History Last grade of school completed: High school graduate Smoking Status: Never smoker Tobacco Type: cigarettes # Packs/Day (cigarettes): 1 #Yrs smoked (if former smoker): 60 Alcohol Intake: never Substance Use Type: denies use *Occupational Status:: retired Housing: house Household Members: spouse *Travel in the last 8 weeks: None Family Hx:: Cancer, Diabetes
== END 2020-07-05 09:40 | disposition home or self-care (01) ==
LOC: OUTP 07:19
PROVIDERS: PCP Family Medicine; Visit Provider Internal Medicine Gastroenterology
PROC: (CPT 47000; principal; 2020-07-05 08:00)
DX: R74.8 Abnormal levels of other serum enzymes (principal); I48.91 Unspecified atrial fibrillation; J44.9 Chronic obstructive pulmonary disease, unspecified; I25.10 Atherosclerotic heart disease of native coronary artery without angina pectoris; E78.5 Hyperlipidemia, unspecified; I10 Essential (primary) hypertension; Z85.9 Personal history of malignant neoplasm, unspecified; Z86.14 Personal history of Methicillin resistant Staphylococcus aureus infection; I49.9 Cardiac arrhythmia, unspecified; Z87.39 Personal history of other diseases of the musculoskeletal system and connective tissue; Z95.818 Presence of other cardiac implants and grafts; Z79.899 Other long term (current) drug therapy
CPT/HCPCS: 47000; 36415; 86328

== ENCOUNTER 2020-07-29 11:55 | Outpatient (CLI) | payer BC, MEDICARE, SELFPAY ==
[2020-07-29 12:00] VITALS: BMI 29.5
[2020-07-29 12:29] LABS: Chloride 103 mmol/L (98-107); Sodium 139 mmol/L (136-145)
[2020-07-29 12:32] LABS: Alanine Aminotransferase 68 U/L (12-78); Albumin Level 3.9 g/dl (3.5-5.0); Alkaline Phosphatase 313 U/L (38-126); Aspartate Amino Transferase 63 U/L (17-59); Bilirubin,Total 0.6 mg/dl (0.2-1.3); Blood Urea Nitrogen 22 mg/dl (9-20); Calcium 9.5 mg/dl (8.4-10.2); Carbon Dioxide 29 mmol/L (22.0-30.0); Creatinine Clearance Estimated 76 mL/min (50-200); Estimated Glomerular Filt Rate 59 ml/min (>60); GFR (African American) 72 ML/MIN (>60); Globulin 3.8 g/dL (1.3-3.2); Glucose 108 mg/dl (74-100); Total Protein,Serum 7.7 g/dl (6.3-8.2)
[2020-07-29 12:39] LABS: Basophils # 0.1 K/mm3 (0-0.2); Basophils % 0.8 % (0.1-2.0); Eosinophils # 0.5 K/mm3 (0.0-0.4); Eosinophils % 4.7 % (0.1-12.0); Hematocrit 38.8 % (42.0-52.0); Hemoglobin 12.2 g/dL (14.1-18.0); Lymphocytes # 2.6 K/mm3 (0.7-4.5); Lymphocytes % 25.9 % (10-50); Mean Corpuscular HGB Conc 31.5 g/dL (31.8-35.4); Mean Corpuscular Hemoglobin 26.7 pg (27.0-31.2); Mean Corpuscular Volume 84.8 fl (80-94); Mean Platelet Volume 8.6 fl (7.4-10.4); Monocytes # 0.8 K/mm3 (0.1-1.0); Monocytes % 7.6 % (1.7-9.3); Neutrophils # 6.1 K/mm3 (1.8-7.8); Neutrophils % 60.9 % (37.0-80.0); Platelet Count 376 K/mm3 (142-424); Red Blood Count 4.57 M/mm3 (4.60-6.20); Red Cell Distribution Width 17.1 % (11.5-17.5)
[2020-07-29 13:55] VITALS: BP 98/55; PULSE 90; RESP 20; TEMP 35.8; O2SAT 95
[2020-07-29 14:10] VITALS: BP 112/67; PULSE 94; RESP 18
[2020-07-29 14:25] VITALS: BP 133/81; PULSE 94; RESP 18
== END 2020-07-29 14:40 | disposition home or self-care (01) ==
LOC: INF 11:59
PROVIDERS: Visit Provider Internal Medicine Medical Oncology
DX: Z51.11 Encounter for antineoplastic chemotherapy (principal); C34.91 Malignant neoplasm of unspecified part of right bronchus or lung
CPT/HCPCS: 80053; 85025; 96413; J1642; J9271

== ENCOUNTER 2020-08-19 08:34 | Outpatient (CLI) | payer BC, MEDICARE, SELFPAY ==
[2020-08-19 08:36] VITALS: BMI 29.8
[2020-08-19 09:04] LABS: Basophils # 0.1 K/mm3 (0-0.2); Basophils % 0.8 % (0.1-2.0); Eosinophils # 0.5 K/mm3 (0.0-0.4); Eosinophils % 6.3 % (0.1-12.0); Hematocrit 37.2 % (42.0-52.0); Hemoglobin 10.7 g/dL (14.1-18.0); Lymphocytes % 26.6 % (10-50); Mean Corpuscular HGB Conc 28.9 g/dL (31.8-35.4); Mean Corpuscular Hemoglobin 25.1 pg (27.0-31.2); Mean Corpuscular Volume 86.9 fl (80-94); Mean Platelet Volume 8.6 fl (7.4-10.4); Monocytes # 0.5 K/mm3 (0.1-1.0); Monocytes % 6.3 % (1.7-9.3); Neutrophils # 4.4 K/mm3 (1.8-7.8); Platelet Count 325 K/mm3 (142-424); Red Blood Count 4.28 M/mm3 (4.60-6.20); White Blood Count 7.3 K/mm3 (4.8-10.8)
[2020-08-19 09:48] LABS: Alanine Aminotransferase 62 U/L (12-78); Albumin Level 3.7 g/dl (3.5-5.0); Alkaline Phosphatase 266 U/L (38-126); Anion Gap 8.7 mEq/L (5-15); Aspartate Amino Transferase 63 U/L (17-59); Bilirubin,Total 0.7 mg/dl (0.2-1.3); Blood Urea Nitrogen 22 mg/dl (9-20); Calcium 9.1 mg/dl (8.4-10.2); Carbon Dioxide 27 mmol/L (22.0-30.0); Chloride 108 mmol/L (98-107); Creatinine Clearance Estimated 91 mL/min (50-200); Estimated Glomerular Filt Rate 82 ml/min (>60); GFR (African American) 100 ML/MIN (>60); Globulin 3.6 g/dL (1.3-3.2); Glucose 118 mg/dl (74-100); Potassium 3.7 mmoL/L (3.5-5.1); Sodium 140 mmol/L (136-145); Total Protein,Serum 7.3 g/dl (6.3-8.2)
[2020-08-19 10:19] LABS: Thyroid Stimulating Hormone 3.95 uIU/mL (0.465-4.68)
[2020-08-19 10:55] VITALS: BP 124/72; PULSE 87; RESP 20; TEMP 35.7; O2SAT 99
[2020-08-19 11:10] VITALS: BP 109/57; PULSE 94; RESP 18
[2020-08-19 11:25] VITALS: BP 111/60; PULSE 94; RESP 18
== END 2020-08-19 11:45 | disposition home or self-care (01) ==
LOC: INF 08:34
PROVIDERS: Visit Provider Internal Medicine Medical Oncology
DX: Z51.11 Encounter for antineoplastic chemotherapy (principal); C34.91 Malignant neoplasm of unspecified part of right bronchus or lung
CPT/HCPCS: 80053; 82024; 82533; 84443; 85025; 96413; J1642; J9271

== ENCOUNTER 2020-09-06 08:20 | Outpatient (CLI) | payer BC, MEDICARE, SELFPAY ==
[2020-09-06 08:09] VITALS: BMI 30.1
[2020-09-06 08:28] LABS: Basophils # 0.1 K/mm3 (0-0.2); Basophils % 0.7 % (0.1-2.0); Eosinophils # 0.5 K/mm3 (0.0-0.4); Eosinophils % 5.3 % (0.1-12.0); Hematocrit 36.4 % (42.0-52.0); Hemoglobin 10.8 g/dL (14.1-18.0); Lymphocytes # 2.1 K/mm3 (0.7-4.5); Lymphocytes % 22.9 % (10-50); Mean Corpuscular HGB Conc 29.7 g/dL (31.8-35.4); Mean Corpuscular Hemoglobin 25.8 pg (27.0-31.2); Mean Corpuscular Volume 86.6 fl (80-94); Mean Platelet Volume 8.5 fl (7.4-10.4); Monocytes # 0.7 K/mm3 (0.1-1.0); Monocytes % 7.8 % (1.7-9.3); Neutrophils # 5.9 K/mm3 (1.8-7.8); Neutrophils % 63.3 % (37.0-80.0); Platelet Count 345 K/mm3 (142-424); Red Blood Count 4.21 M/mm3 (4.60-6.20); White Blood Count 9.3 K/mm3 (4.8-10.8)
[2020-09-06 08:32] LABS: Chloride 107 mmol/L (98-107); Potassium 3.8 mmoL/L (3.5-5.1); Sodium 139 mmol/L (136-145)
[2020-09-06 08:35] LABS: Alanine Aminotransferase 55 U/L (12-78); Albumin Level 3.8 g/dl (3.5-5.0); Alkaline Phosphatase 253 U/L (38-126); Anion Gap 8.8 mEq/L (5-15); Aspartate Amino Transferase 52 U/L (17-59); Bilirubin,Total 0.7 mg/dl (0.2-1.3); Blood Urea Nitrogen 16 mg/dl (9-20); Carbon Dioxide 27 mmol/L (22.0-30.0); Creatinine Clearance Estimated 92 mL/min (50-200); Estimated Glomerular Filt Rate 94 ml/min (>60); GFR (African American) 114 ML/MIN (>60); Globulin 3.8 g/dL (1.3-3.2); Total Protein,Serum 7.6 g/dl (6.3-8.2)
[2020-09-06 08:36] LABS: Calcium 9.2 mg/dl (8.4-10.2); Glucose 111 mg/dl (74-100)
--- NOTE | 2020-09-06 08:40 | CT_ITS ---
PROCEDURE: CT CHEST W CON CLINCAL INDICATION: LUNG CA Follow up lung cancer No symptoms COMPARISON: CT CT CHEST W CON from 06/14/2020 TECHNIQUE: IV Contrast: 75ml Isovue 370 Axial images obtained with sagittal and coronal reformats. All CT scans at the facility use one or more dose reduction, viz: automated exposure control, ma/kV adjustment per patient size (including targeted exams where dose is matched to indication, i.e. head), or iterative reconstruction technique. FINDINGS: There is mild mediastinal adenopathy once again noted.. Mediastinal nodes appears slightly more prominent in the subcarinal region. There is mild left hilar adenopathy not significantly changed. Pacemaker device is present There are centrilobular emphysematous changes with pulmonary fibrosis. Scattered bilateral pulmonary parenchymal and subpleural are once again noted consistent with pulmonary metastasis. These nodules are not significantly changed. There are also scattered areas of scarring. The largest nodules in the right lower lobe medially at 13 mm unchanged. There is a 10 mm nodule in the right upper lobe anteriorly unchanged. 2 cm parenchymal opacity in the right lower lobe is unchanged. No new nodules are identified. No effusions. There is a small amount fluid within the esophagus. IMPRESSION: 1. Overall no significant change in the bilateral pulmonary parenchymal and subpleural nodules. 2. There is mild mediastinal and hilar adenopathy. The subcarinal lymph nodes appear slightly more prominent compared to the previous exam. 3. Centrilobular emphysema with COPD and pulmonary fibrosis. Dictated by: Denver Veronica MD 09/07/2020 10:16 Denver Veronica MD in [place] 09/07/2020 10:16
--- NOTE | 2020-09-06 08:40 | CT_ITS ---
PROCEDURE: CT ABDOMEN PELVIS W CON CLINICAL INDICATION: LUNG CA Follow up lung cancer Follow-up metastatic disease No symptoms COMPARISON: RF [place] ERCP from 04/26/[address] ABDOMEN PELVIS W CON from 06/14/2020 TECHNIQUE: IV Contrast: 75ML Isovue 370 Oral Contrast None Axial images obtained with sagittal and coronal reformats. All CT scans at the facility use one or more dose reduction, viz: automated exposure control, ma/kV adjustment per patient size (including targeted exams where dose is matched to indication, i.e. head), or iterative reconstruction technique. FINDINGS: There is mild thickening of the distal esophagus with a small amount air in the distal esophagus and small hiatal hernia noted. No focal liver lesion is evident. Cholelithiasis is once again noted. There is both intra and extrahepatic biliary ductal dilatation as previously described. Left adrenal mass is once again noted containing both macroscopic fat and calcium. The mass measures 4.5 cm not significantly changed. Bilateral nephrolithiasis and vascular calcifications present. No ureteral calculi. Mild prominence of the renal pelves not significantly changed. A small hypodensity in the spleen is unchanged. No intestinal obstruction or free air. No evidence of appendicitis or diverticulitis. There is colonic diverticulosis. There is an enhancing irregular nodular region in the left aspect of the urinary bladder best seen on series 5, image 96. Neoplasm is considered. Cystoscopy may provide further evaluation. This measures 19 mm previously measuring 15 mm. There are few scattered small retroperitoneal lymph nodes not significantly changed. No acute bony findings. IMPRESSION: 1. Stable left adrenal mass and stable mild retroperitoneal adenopathy. 2. The enhancing nodule in the left aspect urinary bladder still appears slightly larger possibly due to neoplastic focus. 3. No change cholelithiasis with intra and extrahepatic biliary ductal dilatation Dictated by: Denver Veronica MD 09/07/2020 11:07 Denver Veronica MD in [place] 09/07/2020 11:07
[2020-09-07 16:23] LABS: Adrenocorticotropic Hormone 6.4 pg/mL (7.2-63.3)
== END 2020-09-06 09:20 | disposition home or self-care (01) ==
LOC: INF 08:20
PROVIDERS: PCP Family Medicine; Visit Provider Internal Medicine Medical Oncology
DX: C34.91 Malignant neoplasm of unspecified part of right bronchus or lung (principal); R06.02 Shortness of breath; Z03.89 Encounter for observation for other suspected diseases and conditions ruled out
CPT/HCPCS: 71260; 74177; 80053; 82024; 82533; 84443; 85025; J1642; Q9967

== ENCOUNTER 2020-09-10 09:30 | Outpatient (CLI) | payer BC, MEDICARE, SELFPAY ==
[2020-09-10 10:13] VITALS: BP 88/51; PULSE 109; RESP 20; TEMP 35.7; O2SAT 97
[2020-09-10 10:28] VITALS: BP 102/56; PULSE 92; RESP 20
[2020-09-10 10:43] VITALS: BP 100/55; PULSE 95; RESP 20
== END 2020-09-10 11:05 | disposition home or self-care (01) ==
LOC: INF 09:42
PROVIDERS: Visit Provider Internal Medicine Medical Oncology
DX: Z51.11 Encounter for antineoplastic chemotherapy (principal); C34.91 Malignant neoplasm of unspecified part of right bronchus or lung
CPT/HCPCS: 96413; J1642; J9271

== ENCOUNTER 2020-10-01 08:25 | Outpatient (CLI) | payer BC, MEDICARE, SELFPAY ==
[2020-10-01 08:26] VITALS: BMI 31.4
[2020-10-01 08:47] LABS: Basophils # 0.1 K/mm3 (0-0.2); Basophils % 0.6 % (0.1-2.0); Eosinophils # 0.6 K/mm3 (0.0-0.4); Eosinophils % 5.3 % (0.1-12.0); Hematocrit 36.5 % (42.0-52.0); Lymphocytes # 2.3 K/mm3 (0.7-4.5); Lymphocytes % 20.5 % (10-50); Mean Corpuscular HGB Conc 30.1 g/dL (31.8-35.4); Mean Corpuscular Hemoglobin 26.4 pg (27.0-31.2); Mean Corpuscular Volume 87.5 fl (80-94); Mean Platelet Volume 8.7 fl (7.4-10.4); Monocytes # 0.8 K/mm3 (0.1-1.0); Monocytes % 7.7 % (1.7-9.3); Neutrophils # 7.2 K/mm3 (1.8-7.8); Neutrophils % 65.8 % (37.0-80.0); Platelet Count 368 K/mm3 (142-424); Red Blood Count 4.17 M/mm3 (4.60-6.20); Red Cell Distribution Width 18.9 % (11.5-17.5)
[2020-10-01 09:01] LABS: Alanine Aminotransferase 54 U/L (12-78); Albumin Level 3.8 g/dl (3.5-5.0); Albumin/Globulin Ratio 1.2 (1.1-1.8); Alkaline Phosphatase 245 U/L (38-126); Anion Gap 10.6 mEq/L (5-15); Aspartate Amino Transferase 61 U/L (17-59); Bilirubin,Total 0.7 mg/dl (0.2-1.3); Blood Urea Nitrogen 19 mg/dl (9-20); Calcium 8.9 mg/dl (8.4-10.2); Carbon Dioxide 26 mmol/L (22.0-30.0); Chloride 106 mmol/L (98-107); Creatinine Clearance Estimated 96 mL/min (50-200); Estimated Glomerular Filt Rate 94 ml/min (>60); GFR (African American) 114 ML/MIN (>60); Globulin 3.3 g/dL (1.3-3.2); Glucose 120 mg/dl (74-100); Potassium 3.6 mmoL/L (3.5-5.1); Sodium 139 mmol/L (136-145); Total Protein,Serum 7.1 g/dl (6.3-8.2)
[2020-10-01 09:31] LABS: Thyroid Stimulating Hormone 3.16 uIU/mL (0.465-4.68)
[2020-10-01 09:55] VITALS: BP 114/66; PULSE 89; RESP 18; TEMP 36.1; O2SAT 98
[2020-10-01 10:10] VITALS: BP 126/56; PULSE 74; RESP 18
[2020-10-01 10:25] VITALS: BP 138/69; PULSE 83; RESP 18
== END 2020-10-01 10:45 | disposition home or self-care (01) ==
LOC: INF 08:25
PROVIDERS: Visit Provider Internal Medicine Medical Oncology
DX: Z51.11 Encounter for antineoplastic chemotherapy (principal); C34.91 Malignant neoplasm of unspecified part of right bronchus or lung
CPT/HCPCS: 80053; 82024; 82533; 84443; 85025; 96413; J1642; J9271

== ENCOUNTER 2020-10-21 08:41 | Outpatient (CLI) | payer BC, MEDICARE, SELFPAY ==
[2020-10-21 09:00] VITALS: BMI 32.4
[2020-10-21 09:29] LABS: Basophils # 0.1 K/mm3 (0-0.2); Basophils % 0.8 % (0.1-2.0); Eosinophils # 0.4 K/mm3 (0.0-0.4); Hematocrit 37.3 % (42.0-52.0); Hemoglobin 11.5 g/dL (14.1-18.0); Lymphocytes # 1.9 K/mm3 (0.7-4.5); Lymphocytes % 17.1 % (10-50); Mean Corpuscular HGB Conc 30.9 g/dL (31.8-35.4); Mean Corpuscular Hemoglobin 27.1 pg (27.0-31.2); Mean Corpuscular Volume 87.7 fl (80-94); Monocytes # 0.7 K/mm3 (0.1-1.0); Neutrophils # 7.9 K/mm3 (1.8-7.8); Neutrophils % 72.1 % (37.0-80.0); Platelet Count 498 K/mm3 (142-424); Red Blood Count 4.26 M/mm3 (4.60-6.20); White Blood Count 10.9 K/mm3 (4.8-10.8)
[2020-10-21 09:33] LABS: Chloride 108 mmol/L (98-107)
[2020-10-21 09:34] LABS: Sodium 139 mmol/L (136-145)
[2020-10-21 09:36] LABS: Alanine Aminotransferase 51 U/L (12-78); Aspartate Amino Transferase 56 U/L (17-59); Bilirubin,Total 0.8 mg/dl (0.2-1.3); Blood Urea Nitrogen 23 mg/dl (9-20); Creatinine Clearance Estimated 99 mL/min (50-200); Estimated Glomerular Filt Rate 94 ml/min (>60); GFR (African American) 114 ML/MIN (>60)
[2020-10-21 09:37] LABS: Albumin Level 3.8 g/dl (3.5-5.0); Albumin/Globulin Ratio 1.1 (1.1-1.8); Alkaline Phosphatase 298 U/L (38-126); Carbon Dioxide 24 mmol/L (22.0-30.0); Globulin 3.6 g/dL (1.3-3.2); Glucose 123 mg/dl (74-100); Total Protein,Serum 7.4 g/dl (6.3-8.2)
[2020-10-21 10:08] LABS: Thyroid Stimulating Hormone 2.02 uIU/mL (0.465-4.68)
[2020-10-21 11:15] VITALS: BP 108/63; PULSE 78; RESP 18; TEMP 36.2; O2SAT 99
[2020-10-21 11:50] VITALS: BP 110/59; PULSE 79; RESP 18; O2SAT 98
[2020-10-22 14:25] LABS: Adrenocorticotropic Hormone 6.1 pg/mL (7.2-63.3)
== END 2020-10-21 11:50 | disposition home or self-care (01) ==
LOC: INF 08:41
PROVIDERS: Visit Provider Internal Medicine Medical Oncology
DX: Z51.11 Encounter for antineoplastic chemotherapy (principal); C34.91 Malignant neoplasm of unspecified part of right bronchus or lung
CPT/HCPCS: 80053; 82024; 82533; 84443; 85025; 96413; J1642; J9271

== ENCOUNTER 2020-11-12 08:40 | Outpatient (CLI) | payer BC, MEDICARE, SELFPAY ==
[2020-11-12 08:46] VITALS: BMI 31.7
[2020-11-12 09:10] LABS: Basophils # 0.1 K/mm3 (0-0.2); Basophils % 0.5 % (0.1-2.0); Eosinophils # 0.4 K/mm3 (0.0-0.4); Eosinophils % 3.5 % (0.1-12.0); Hematocrit 30.7 % (42.0-52.0); Hemoglobin 9.4 g/dL (14.1-18.0); Lymphocytes # 1.8 K/mm3 (0.7-4.5); Lymphocytes % 17.4 % (10-50); Mean Corpuscular HGB Conc 30.4 g/dL (31.8-35.4); Mean Corpuscular Hemoglobin 25.9 pg (27.0-31.2); Mean Platelet Volume 8.7 fl (7.4-10.4); Monocytes # 0.7 K/mm3 (0.1-1.0); Monocytes % 6.7 % (1.7-9.3); Neutrophils # 7.3 K/mm3 (1.8-7.8); Neutrophils % 71.9 % (37.0-80.0); Platelet Count 394 K/mm3 (142-424); Red Blood Count 3.62 M/mm3 (4.60-6.20); Red Cell Distribution Width 17.6 % (11.5-17.5); White Blood Count 10.2 K/mm3 (4.8-10.8)
[2020-11-12 09:11] LABS: Chloride 107 mmol/L (98-107); Potassium 3.9 mmoL/L (3.5-5.1); Sodium 137 mmol/L (136-145)
[2020-11-12 09:14] LABS: Alanine Aminotransferase 63 U/L (12-78); Albumin Level 3.5 g/dl (3.5-5.0); Albumin/Globulin Ratio 1.1 (1.1-1.8); Alkaline Phosphatase 220 U/L (38-126); Anion Gap 9.9 mEq/L (5-15); Aspartate Amino Transferase 54 U/L (17-59); Blood Urea Nitrogen 20 mg/dl (9-20); Calcium 8.8 mg/dl (8.4-10.2); Carbon Dioxide 24 mmol/L (22.0-30.0); Creatinine Clearance Estimated 97 mL/min (50-200); Estimated Glomerular Filt Rate 94 ml/min (>60); GFR (African American) 114 ML/MIN (>60); Globulin 3.2 g/dL (1.3-3.2); Glucose 125 mg/dl (74-100); Total Protein,Serum 6.7 g/dl (6.3-8.2)
[2020-11-12 09:45] LABS: Thyroid Stimulating Hormone 1.95 uIU/mL (0.465-4.68)
[2020-11-12 10:35] VITALS: BP 134/69; PULSE 92; RESP 18; TEMP 35.7; O2SAT 97
[2020-11-12 10:50] VITALS: BP 105/63; PULSE 97; RESP 18
[2020-11-12 11:05] VITALS: BP 119/69; PULSE 97; RESP 18
[2020-11-12 11:15] VITALS: BP 117/65; PULSE 98; RESP 18
[2020-11-15 23:42] LABS: Adrenocorticotropic Hormone <1.5 pg/mL (7.2-63.3)
== END 2020-11-12 11:30 | disposition home or self-care (01) ==
LOC: INF 08:44
PROVIDERS: Visit Provider Internal Medicine Medical Oncology
DX: Z51.11 Encounter for antineoplastic chemotherapy (principal); C34.91 Malignant neoplasm of unspecified part of right bronchus or lung
CPT/HCPCS: 80053; 82024; 82533; 84443; 85025; 96413; J1642; J9271

== ENCOUNTER 2020-11-27 13:26 | Emergency (ER) | payer BC, MEDICARE, SELFPAY ==
[2020-11-27 13:27] VITALS: BP 123/72; PULSE 96; RESP 18; TEMP 36.9; O2SAT 95; BMI 31.1
--- NOTE | 2020-11-27 13:30 | ECG_ITS ---
APPROVED REPORT Exam: Resting ECG HR:124 bpm ECG Measurements Heart Rate 124 AXES QRSd 86 QRS -2 QT 294 T 60 QTc 422 Conclusion Atrial fibrillation with rapid ventricular response Abnormal ECG Electronically signed by : Ricardo Timmons, 11/28/2020 16:38:45
--- NOTE | 2020-11-27 13:47 | HMH.EDGENADL ---
ED Disposition Clinical Impression: Pneumonia Qualifiers: Pneumonia type: due to unspecified organism Laterality: right Lung location: middle lobe of lung Qualified Code(s): J18.9 - Pneumonia, unspecified organism Disposition: Home, Self-Care Condition on Discharge: Good Instructions: Pneumonia-Adult Prescriptions: Amoxicillin/Potassium Clav [Augmentin 875-125 Tablet] 1 tab PO Q12H 7 Days #14 tab [id number] Azithromycin 250 mg PO DAILY #5 tab Transmission Status: [id number] Referrals: Ricardo Fulton MD [Primary Care Provider] - - Critical Care Critical Care Time: No Attestation: On 11/27/20, the high probability of a clinically significant, sudden or life threatening deterioration of the following system(s) required my full and direct attention, intervention and personal management. The time I documented below is in addition to time spent performing reported procedures but includes the following listed in this critical care notation. Medical Decision Making - Medical Records Medical records reviewed: Yes: I reviewed the patient's medical records. - [place] Inquiry Pt receiving controlled substance: No Vital Signs: 11/27/20 13:27 11/27/20 15:00 11/27/20 15:28 Temperature 98.4 F Temperature Source Oral Pulse Rate 114 H 101 H Pulse Rate [Right] 96 H Respiratory Rate 18 20 18 Blood Pressure 136/78 132/81 Blood Pressure [Right Arm] 123/72 Blood Pressure Mean [Right Arm] 89 02 Sat by Pulse Oximetry 95 96 95 Oxygen Delivery Method Room Air Room Air 11/27/20 15:46 11/27/20 16:14 Temperature 98.4 F Temperature Source Pulse Rate 111 H 106 H Pulse Rate [Right] Respiratory Rate 22 18 Blood Pressure 146/88 H 138/95 H Blood Pressure [Right Arm] Blood Pressure Mean [Right Arm] 02 Sat by Pulse Oximetry 98 Oxygen Delivery Method Room Air - Lab Data Lab results reviewed: Yes: I reviewed the patient's lab results. Lab Results 11/27/20 13:50: WBC 14.0 H, RBC 3.65 L, Hgb 9.0 L, Hct 31.4 L, MCV 85.9, MCH 24.6 L, MCHC 28.7 L, RDW 16.2, Plt Count 442 H, MPV 8.4, Neut % (Auto) 86.7 H, Lymph % (Auto) 7.4 L, [place] % (Auto) 4.8, Eos % (Auto) 0.8, Baso % (Auto) 0.4, Neut # (Auto) 12.1 H, Lymph # (Auto) 1.0, [place] # (Auto) 0.7, Eos # (Auto) 0.1, Baso # (Auto) 0.1, Total Counted 100, Neutrophils % (Manual) 90 H, Band Neutrophils % 1.0, Lymphocytes % (Manual) 3 L, Monocytes % (Manual) 5, Eosinophils % (Manual) 1, Platelet Estimate Normal, Hypochromasia 1+, Microcytosis 1+ 11/27/20 13:50: Sodium 136, Potassium 3.8, Chloride 108 H, Carbon Dioxide 23, Anion Gap 8.8, BUN 20, Creatinine 0.80, Estimated Creat Clear 96, Estimated GFR 94, Est GFR ( Amer) 114, Glucose 128 H, Calcium 8.7, Total Bilirubin 1.2, AST 58, ALT 43, Alkaline Phosphatase 243 H, Total Protein 6.6, Albumin 3.4 L, Globulin 3.2, Albumin/Globulin Ratio 1.1 11/27/20 13:50: PT 25.4 H, INR 2.29 H Result diagrams: 11/27/20 13:50 11/27/20 13:50 Orders (Tests/Meds): ED MEDICATIONS Discontinued Medications Generic Name Dose Route Start Last Admin Trade Name Freq PRN Reason Stop Dose Admin Acetaminophen 1,000 mg 11/27/20 13:52 11/27/20 14:20 Acetaminophen 500mg Tab PO 11/27/20 13:53 Not Given ONCE ONE Amoxicillin 2,000 mg 11/27/20 15:52 11/27/20 15:57 Amoxicillin 500mg Capsule PO 11/27/20 15:53 2,000 mg ONCE ONE Administration Protocol Azithromycin 500 mg 11/27/20 15:50 11/27/20 15:57 Azithromycin 250mg Tablet PO 11/27/20 15:51 500 mg ONCE ONE Administration Protocol Lactated Ringer's 1,000 mls @ 999 mls/hr 11/27/20 14:00 11/27/20 14:05 Lactated Ringer's 1000 Ml Bag IV 11/27/20 15:00 999 mls/hr .Q1H1M GANGA Administration ORDERS Category Date Time Status Blood Culture Stat Micro 11/27/20 14:20 Received Medical Decision Narrative: [place] for multiple complaints. Patient has history of A. fib wi
[2020-11-27 13:58] LABS: Basophils # 0.1 K/mm3 (0-0.2); Basophils % 0.4 % (0.1-2.0); Eosinophils # 0.1 K/mm3 (0.0-0.4); Eosinophils % 0.8 % (0.1-12.0); Hematocrit 31.4 % (42.0-52.0); Lymphocytes % 7.4 % (10-50); Mean Corpuscular HGB Conc 28.7 g/dL (31.8-35.4); Mean Corpuscular Hemoglobin 24.6 pg (27.0-31.2); Mean Corpuscular Volume 85.9 fl (80-94); Mean Platelet Volume 8.4 fl (7.4-10.4); Monocytes # 0.7 K/mm3 (0.1-1.0); Monocytes % 4.8 % (1.7-9.3); Neutrophils # 12.1 K/mm3 (1.8-7.8); Neutrophils % 86.7 % (37.0-80.0); Platelet Count 442 K/mm3 (142-424); Red Blood Count 3.65 M/mm3 (4.60-6.20); Red Cell Distribution Width 16.2 % (11.5-17.5)
[2020-11-27 14:06] LABS: Alanine Aminotransferase 43 U/L (12-78); Albumin Level 3.4 g/dl (3.5-5.0); Albumin/Globulin Ratio 1.1 (1.1-1.8); Alkaline Phosphatase 243 U/L (38-126); Anion Gap 8.8 mEq/L (5-15); Aspartate Amino Transferase 58 U/L (17-59); Bilirubin,Total 1.2 mg/dl (0.2-1.3); Blood Urea Nitrogen 20 mg/dl (9-20); Calcium 8.7 mg/dl (8.4-10.2); Carbon Dioxide 23 mmol/L (22.0-30.0); Chloride 108 mmol/L (98-107); Creatinine Clearance Estimated 96 mL/min (50-200); Estimated Glomerular Filt Rate 94 ml/min (>60); GFR (African American) 114 ML/MIN (>60); Globulin 3.2 g/dL (1.3-3.2); Glucose 128 mg/dl (74-100); MANUAL DIFFERENTIAL MANUAL DIFFERENTIAL (MANUAL DIFF); Potassium 3.8 mmoL/L (3.5-5.1); Sodium 136 mmol/L (136-145); Total Protein,Serum 6.6 g/dl (6.3-8.2)
[2020-11-27 14:13] LABS: INR 2.29 (0.9-1.1); Prothrombin Time 25.4 seconds (10.1-12.5)
--- NOTE | 2020-11-27 14:18 | XR_ITS ---
PROCEDURE INFORMATION: Exam: XR Chest Exam date and time: 11/27/2020 2:18 PM Age: 75 years old Clinical indication: Shortness of breath; Prior surgery; Surgery date: 1-6 months; Surgery type: Port; Patient HX: PT has known lung cancer; Additional info: SOB TECHNIQUE: Imaging protocol: XR of the chest. Views: 2 views. COMPARISON: CT CHEST W CON 09/06/2020 8:52 AM FINDINGS: Tubes, catheters and devices: Again noted is a subcutaneous port. Lungs: Diffuse airspace consolidation in the right upper and lower lobes. Lesser amount of consolidation in the left lower lobe. Comparison across modalities is inexact, but the consolidation is probably worse since the previous study. Pleural spaces: Unremarkable. No pleural effusion. No pneumothorax. Heart/Mediastinum: Unremarkable. No cardiomegaly. Bones/joints: Unremarkable. IMPRESSION: Bilateral airspace consolidation probably represents an acute pneumonia. Worsening of neoplasm is also possible. If clinical concern remains, further evaluation with CT would be helpful to differentiate.
--- NOTE | 2020-11-27 14:25 | PC.NURSE ---
ACCESSED PORT PER ER PHYSICIAN VERBAL ORDER. STERILE AND ASEPTIC TECHNIQUE USED.
[2020-11-27 14:28] LABS: Eosinophils % 1 % (0-3); Hypochromasia 1+; Lymphocytes % 3 % (10-50); Microcytosis 1+; Monocytes % 5 % (2-9); Neutrophils % 90 % (42-76); Platelet Estimate Normal; Total Cells Counted 100
[2020-11-27 15:00] VITALS: BP 136/78; PULSE 114; RESP 20; O2SAT 96
--- NOTE | 2020-11-27 15:27 | PC.NURSE ---
ASSISTED PT IN ATTEMPTING TO USE A URINAL. PT UNABLE TO URINATE AT THIS TIME. PT DENIES FEELING IF HE NEEDS TO URINATE. MADE AWARE
[2020-11-27 15:28] VITALS: BP 132/81; PULSE 101; RESP 18; O2SAT 95
--- NOTE | 2020-11-27 15:40 | PC.NURSE ---
Pt with rad.
--- NOTE | 2020-11-27 15:44 | PC.NURSE ---
Pt returned from rad.
[2020-11-27 15:46] VITALS: BP 146/88; PULSE 111; RESP 22; O2SAT 98
[2020-11-27 16:14] VITALS: BP 138/95; PULSE 106; RESP 18; TEMP 36.9; O2SAT 98
== END 2020-11-27 16:18 | disposition home or self-care (01) ==
PROVIDERS: Emergency Provider Emergency Medicine; PCP Family Medicine
DX: J18.9 Pneumonia, unspecified organism (principal); I48.91 Unspecified atrial fibrillation; C34.90 Malignant neoplasm of unspecified part of unspecified bronchus or lung; J44.9 Chronic obstructive pulmonary disease, unspecified; E78.5 Hyperlipidemia, unspecified; I10 Essential (primary) hypertension; Z87.891 Personal history of nicotine dependence; Z79.899 Other long term (current) drug therapy; Z20.822 Contact with and (suspected) exposure to COVID-19
CPT/HCPCS: 71046; 80053; 85007; 85025; 85610; 87040; 93005; 96365; 99283; J1642; U0003

== ENCOUNTER 2020-11-29 08:35 | Outpatient (CLI) | payer BC, MEDICARE, SELFPAY ==
--- NOTE | 2020-11-29 | CT_ITS ---
PROCEDURE: CT CHEST W CON CLINCAL INDICATION: LUNG CANCER Follow up Hx of lung cancer Increased soa COMPARISON: CT CT CHEST WO CON from 07/04/[address] CHEST W CON from 03/02/[address] CHEST W CON from 09/06/2020 TECHNIQUE: IV Contrast: 75ml Isovue 370 Axial images obtained with sagittal and coronal reformats. All CT scans at the facility use one or more dose reduction, viz: automated exposure control, ma/kV adjustment per patient size (including targeted exams where dose is matched to indication, i.e. head), or iterative reconstruction technique. FINDINGS: HEART AND MEDIASTINAL STRUCTURES: Right IJ MediPort catheter present. There remains mildly prominent mediastinal and bilateral hilar lymph nodes. The increased soft tissue density in the left hilar region is stable. The largest mediastinal nodes are in the subcarinal region measuring approximately 3.6 x 1.6 cm overall not significantly changed. Coronary artery calcifications and/or stents noted. There is some nonspecific thickening of the distal esophagus. LUNGS AND PLEURAL SPACES: COPD with centrilobular emphysema and pulmonary fibrotic changes. Scattered subpleural nodules are present as before. Areas of parenchymal opacities noted within the regions of pulmonary fibrosis. There is some peripheral honeycombing a a new parenchymal opacity is present in the left upper lobe series 4, image 25. There is some mild traction bronchiectasis. BONY STRUCTURES: No acute bony abnormalities apparent. UPPER ABDOMEN: Please see abdomen report ADDITIONAL FINDINGS: No other significant abnormalities. IMPRESSION: Centrilobular emphysema with pulmonary fibrosis and scattered parenchymal and subpleural opacities most of which are stable. A new parenchymal opacity is present in the left upper lobe. This may represent an area of developing postinflammatory scarring. There is some traction bronchiectasis in this region. One cannot exclude the possibility of metastatic disease. Continued follow-up suggested. Overall no change in the mediastinal and hilar adenopathy. Dictated by: Denver Veronica MD 11/30/2020 08:43 Denver Veronica MD in [place] 11/30/2020 08:43
--- NOTE | 2020-11-29 | CT_ITS ---
PROCEDURE: CT ABDOMEN PELVIS W CON CLINICAL INDICATION: LUNG CANCER Follow up Hx of lung cancer Increased soa COMPARISON: CT CT CHEST W CONTRAST from 01/02/[address] ABDOMEN PELVIS W CON from 09/06/2020 TECHNIQUE: IV Contrast: 75ML Isovue 370 Oral Contrast None Axial images obtained with sagittal and coronal reformats. All CT scans at the facility use one or more dose reduction, viz: automated exposure control, ma/kV adjustment per patient size (including targeted exams where dose is matched to indication, i.e. head), or iterative reconstruction technique. FINDINGS: There is prominent intra and extrahepatic biliary ductal dilatation. Common bile duct measures up to 15 mm in diameter. The intrahepatic biliary ductal dilatation does appear slightly worse. There is a questionable area of increased soft tissue density at the ampulla. No focal liver lesion is evident. Gallstones once again noted. The spleen is normal in size. There is a small hypodensity in the spleen superiorly and anteriorly which is stable measuring 1 cm. There is mild thickening of the distal esophagus unchanged. Left adrenal mass is once again noted measuring 5 x 4 cm not significantly changed. Right adrenal gland has an unremarkable appearance. Diffuse vascular calcification noted involving the renal segmental arteries. No obvious pancreatic mass. There are few small epigastric lymph nodes. There is a moderate amount of retained colonic feces. No evidence of appendicitis. There is colonic diverticulosis but no evidence of diverticulitis. A 2.4 cm irregular soft tissue mass is present in the left aspect of the urinary bladder. This has increased in size previously measuring 2 cm. This is suspicious for neoplasm. No acute bony findings. IMPRESSION: 1. Slight increase in biliary ductal dilatation with cholelithiasis. There is some slight increased soft tissue density at the ampullary region. A developing ampullary mass is considered. ERCP may provide further evaluation. 2. No change in the left adrenal mass. 3. Enlarging mass within the left aspect of the urinary bladder highly suspicious for neoplasm. 4. Cholelithiasis Dictated by: Denver Veronica MD 11/30/2020 08:56 Denver Veronica MD in [place] 11/30/2020 08:56
[2020-11-29 08:25] VITALS: BMI 32.0
[2020-11-29 08:50] LABS: Basophils # 0.1 K/mm3 (0-0.2); Basophils % 0.7 % (0.1-2.0); Eosinophils # 0.5 K/mm3 (0.0-0.4); Eosinophils % 4.3 % (0.1-12.0); Hematocrit 32.1 % (42.0-52.0); Hemoglobin 9.2 g/dL (14.1-18.0); Lymphocytes % 17.9 % (10-50); Mean Corpuscular HGB Conc 28.5 g/dL (31.8-35.4); Mean Corpuscular Hemoglobin 24.6 pg (27.0-31.2); Mean Corpuscular Volume 86.3 fl (80-94); Monocytes # 0.7 K/mm3 (0.1-1.0); Monocytes % 6.4 % (1.7-9.3); Neutrophils # 7.8 K/mm3 (1.8-7.8); Neutrophils % 70.6 % (37.0-80.0); Platelet Count 430 K/mm3 (142-424); Red Blood Count 3.72 M/mm3 (4.60-6.20); Red Cell Distribution Width 16.4 % (11.5-17.5)
[2020-11-29 09:07] LABS: Chloride 107 mmol/L (98-107); Potassium 3.4 mmoL/L (3.5-5.1); Sodium 140 mmol/L (136-145)
[2020-11-29 09:10] LABS: Alanine Aminotransferase 38 U/L (12-78); Albumin Level 3.4 g/dl (3.5-5.0); Alkaline Phosphatase 226 U/L (38-126); Anion Gap 12.4 mEq/L (5-15); Aspartate Amino Transferase 40 U/L (17-59); Bilirubin,Total 0.8 mg/dl (0.2-1.3); Blood Urea Nitrogen 18 mg/dl (9-20); Calcium 9.1 mg/dl (8.4-10.2); Carbon Dioxide 24 mmol/L (22.0-30.0); Creatinine Clearance Estimated 98 mL/min (50-200); Estimated Glomerular Filt Rate 110 ml/min (>60); GFR (African American) 133 ML/MIN (>60); Globulin 3.3 g/dL (1.3-3.2); Glucose 126 mg/dl (74-100); Total Protein,Serum 6.7 g/dl (6.3-8.2)
[2020-11-29 09:42] LABS: Thyroid Stimulating Hormone 3.07 uIU/mL (0.465-4.68)
[2020-11-30 20:57] LABS: Adrenocorticotropic Hormone 4.2 pg/mL (7.2-63.3)
== END 2020-11-29 09:57 | disposition home or self-care (01) ==
LOC: INF 08:35
PROVIDERS: PCP Family Medicine; Visit Provider Internal Medicine Medical Oncology
DX: C34.90 Malignant neoplasm of unspecified part of unspecified bronchus or lung (principal); Z03.89 Encounter for observation for other suspected diseases and conditions ruled out
CPT/HCPCS: 71260; 74177; 80053; 82024; 82533; 84443; 85025; J1642; Q9967

== ENCOUNTER 2020-12-02 08:40 | Outpatient (CLI) | payer BC, MEDICARE, SELFPAY ==
[2020-12-02 11:00] VITALS: BP 94/48; PULSE 80; RESP 20; TEMP 36.3; O2SAT 97
[2020-12-02 11:15] VITALS: BP 97/54; PULSE 87; RESP 20
[2020-12-02 11:30] VITALS: BP 116/62; PULSE 88; RESP 20
== END 2020-12-02 11:55 | disposition home or self-care (01) ==
LOC: INF 08:44
PROVIDERS: Visit Provider Internal Medicine Medical Oncology
DX: Z51.11 Encounter for antineoplastic chemotherapy (principal); C34.90 Malignant neoplasm of unspecified part of unspecified bronchus or lung
CPT/HCPCS: 96413; J1642; J9271

== ENCOUNTER 2020-12-31 08:08 | Outpatient (CLI) | payer BC, MEDICARE, SELFPAY ==
[2020-12-31 08:10] VITALS: BMI 33.3
[2020-12-31 08:37] LABS: Basophils # 0.1 K/mm3 (0-0.2); Basophils % 0.6 % (0.1-2.0); Eosinophils # 0.4 K/mm3 (0.0-0.4); Eosinophils % 3.7 % (0.1-12.0); Hematocrit 31.4 % (42.0-52.0); Hemoglobin 9.2 g/dL (14.1-18.0); Lymphocytes # 1.7 K/mm3 (0.7-4.5); Lymphocytes % 15.8 % (10-50); Mean Corpuscular HGB Conc 29.3 g/dL (31.8-35.4); Mean Corpuscular Hemoglobin 22.9 pg (27.0-31.2); Mean Corpuscular Volume 78.1 fl (80-94); Mean Platelet Volume 9.1 fl (7.4-10.4); Monocytes # 0.5 K/mm3 (0.1-1.0); Monocytes % 4.7 % (1.7-9.3); Neutrophils # 8.3 K/mm3 (1.8-7.8); Neutrophils % 75.2 % (37.0-80.0); Platelet Count 427 K/mm3 (142-424); Red Blood Count 4.02 M/mm3 (4.60-6.20); Red Cell Distribution Width 17.5 % (11.5-17.5)
[2020-12-31 08:43] LABS: Chloride 104 mmol/L (98-107); Potassium 3.5 mmoL/L (3.5-5.1); Sodium 139 mmol/L (136-145)
[2020-12-31 08:45] LABS: Blood Urea Nitrogen 19 mg/dl (9-20); Creatinine Clearance Estimated 102 mL/min (50-200); Estimated Glomerular Filt Rate 94 ml/min (>60); GFR (African American) 114 ML/MIN (>60)
[2020-12-31 08:46] LABS: Alanine Aminotransferase 48 U/L (12-78); Albumin Level 3.5 g/dl (3.5-5.0); Alkaline Phosphatase 218 U/L (38-126); Anion Gap 11.5 mEq/L (5-15); Aspartate Amino Transferase 37 U/L (17-59); Bilirubin,Total 0.9 mg/dl (0.2-1.3); Calcium 8.7 mg/dl (8.4-10.2); Carbon Dioxide 27 mmol/L (22.0-30.0); Globulin 3.4 g/dL (1.3-3.2); Glucose 103 mg/dl (74-100); Total Protein,Serum 6.9 g/dl (6.3-8.2)
[2020-12-31 09:32] LABS: Thyroid Stimulating Hormone 1.26 uIU/mL (0.465-4.68)
[2020-12-31 09:33] LABS: Iron 33 ug/dL (49-181)
[2020-12-31 09:42] LABS: Total Iron Binding Capacity 478 ug/dL (261-462)
[2020-12-31 10:00] VITALS: BP 99/52; PULSE 93; RESP 18; TEMP 35.9; O2SAT 95
[2020-12-31 10:10] LABS: Ferritin 51.6 ng/ml (17.9-464)
[2020-12-31 10:15] VITALS: BP 107/48; PULSE 97; RESP 18
[2020-12-31 10:30] VITALS: BP 105/55; PULSE 92; RESP 18
[2021-01-03 14:13] LABS: Adrenocorticotropic Hormone <1.5 pg/mL (7.2-63.3)
== END 2020-12-31 10:50 | disposition home or self-care (01) ==
LOC: INF 08:08
PROVIDERS: Visit Provider Internal Medicine Medical Oncology
DX: Z51.11 Encounter for antineoplastic chemotherapy (principal); C34.91 Malignant neoplasm of unspecified part of right bronchus or lung
CPT/HCPCS: 80053; 82024; 82533; 82728; 83540; 83550; 84443; 85025; 96413; J1642; J9271

== ENCOUNTER 2021-01-07 08:50 | Outpatient (CLI) | payer BC, MEDICARE, SELFPAY ==
[2021-01-07 09:10] VITALS: BP 117/53; PULSE 90; RESP 18; TEMP 36.3; O2SAT 97
[2021-01-07 09:35] VITALS: BP 95/53; PULSE 85; RESP 18; O2SAT 97
[2021-01-07 10:09] VITALS: BP 109/56; PULSE 82; RESP 16; TEMP 36.4; O2SAT 98
== END 2021-01-07 10:15 | disposition home or self-care (01) ==
LOC: INF 08:50
PROVIDERS: PCP Family Medicine; Visit Provider Internal Medicine Medical Oncology
DX: C34.91 Malignant neoplasm of unspecified part of right bronchus or lung (principal)
CPT/HCPCS: 96365; J1439; J1642

== ENCOUNTER 2021-01-14 08:40 | Outpatient (CLI) | payer BC, MEDICARE, SELFPAY ==
[2021-01-14 09:00] VITALS: BP 140/75; PULSE 126; RESP 22; TEMP 37; O2SAT 92
[2021-01-14 09:40] VITALS: BP 157/73; PULSE 129; RESP 20; O2SAT 96
--- NOTE | 2021-01-14 10:47 | PC.NURSE ---
0953-PLACED PT ON PORTABLE O2 AND TOOK IN WHEELCHAIR TO CAR AND DIRECTED TO GO STRAIGHT TO DR TADEO' OFFICE FOR FURTHER EVALUATION. PT AGREED TO DO SO.
== END 2021-01-14 09:53 | disposition home or self-care (01) ==
LOC: INF 08:51
PROVIDERS: Visit Provider Internal Medicine Medical Oncology
DX: C34.91 Malignant neoplasm of unspecified part of right bronchus or lung (principal)
CPT/HCPCS: 96365; J1439; J1642

== ENCOUNTER 2021-01-20 09:33 | Outpatient (CLI) | payer BC, MEDICARE, SELFPAY ==
[2021-01-20 09:30] VITALS: BMI 32.3
[2021-01-20 10:02] LABS: Lymphocytes # 1.4 K/mm3 (0.7-4.5); Monocytes # 0.6 K/mm3 (0.1-1.0); Red Blood Count 4.16 M/mm3 (4.60-6.20)
[2021-01-20 10:03] LABS: Red Cell Distribution Width 27.5 % (11.5-17.5)
[2021-01-20 10:05] LABS: Basophils # 0.1 K/mm3 (0-0.2); Basophils % 0.4 % (0.1-2.0); Eosinophils # 0.3 K/mm3 (0.0-0.4); Eosinophils % 2.6 % (0.1-12.0); Hematocrit 36.5 % (42.0-52.0); Lymphocytes % 10.4 % (10-50); Mean Corpuscular HGB Conc 30.3 g/dL (31.8-35.4); Mean Corpuscular Hemoglobin 26.6 pg (27.0-31.2); Mean Corpuscular Volume 87.7 fl (80-94); Mean Platelet Volume 8.3 fl (7.4-10.4); Monocytes % 4.4 % (1.7-9.3); Neutrophils % 82.2 % (37.0-80.0); Platelet Count 425 K/mm3 (142-424); White Blood Count 13.4 K/mm3 (4.8-10.8)
[2021-01-20 10:14] LABS: Alanine Aminotransferase 61 U/L (12-78); Albumin Level 3.3 g/dl (3.5-5.0); Albumin/Globulin Ratio 1.1 (1.1-1.8); Alkaline Phosphatase 214 U/L (38-126); Anion Gap 10.8 mEq/L (5-15); Aspartate Amino Transferase 47 U/L (17-59); Bilirubin,Total 1.1 mg/dl (0.2-1.3); Blood Urea Nitrogen 23 mg/dl (9-20); Calcium 7.8 mg/dl (8.4-10.2); Carbon Dioxide 30 mmol/L (22.0-30.0); Chloride 103 mmol/L (98-107); Creatinine Clearance Estimated 99 mL/min (50-200); Estimated Glomerular Filt Rate 94 ml/min (>60); GFR (African American) 114 ML/MIN (>60); Globulin 3.1 g/dL (1.3-3.2); Glucose 165 mg/dl (74-100); Sodium 141 mmol/L (136-145); Total Protein,Serum 6.4 g/dl (6.3-8.2)
[2021-01-20 10:15] LABS: Potassium 2.8 mmoL/L (3.5-5.1)
[2021-01-20 11:14] VITALS: BP 100/49; PULSE 92; RESP 17; TEMP 36.4; O2SAT 93
[2021-01-20 11:55] VITALS: BP 98/51; PULSE 92; RESP 17; O2SAT 93
--- NOTE | 2021-01-20 11:55 | PC.NURSE ---
spoke with GLORIA Villarreal who stated she spoke with Dr. Fulton office and pt was instructed to take two of his potassium pills now instead of one a day and will not be getting potassium today from us.
[2021-01-20 12:16] VITALS: BP 116/67; PULSE 94; RESP 18; O2SAT 92
[2021-01-21 13:10] LABS: Adrenocorticotropic Hormone <1.5 pg/mL (7.2-63.3)
== END 2021-01-20 12:17 | disposition home or self-care (01) ==
LOC: INF 09:33
PROVIDERS: Visit Provider Internal Medicine Medical Oncology
DX: Z51.11 Encounter for antineoplastic chemotherapy (principal); C34.91 Malignant neoplasm of unspecified part of right bronchus or lung
CPT/HCPCS: 80053; 82024; 82533; 84443; 85025; 96413; J1642; J9271

== ENCOUNTER 2021-02-08 13:08 | Inpatient (IN) | payer BC, MEDICARE, SELFPAY ==
[2021-02-08] VITALS (27 sets, daily range): BP systolic 80–177; BP diastolic 42–102; PULSE 104–196; RESP 16–50; TEMP 36.2–37.5; O2SAT 56–100; BMI 32.5
--- NOTE | 2021-02-08 13:19 | ECG_ITS ---
APPROVED REPORT Exam: Resting ECG HR:182 bpm ECG Measurements Heart Rate 182 AXES QRSd 76 QRS -15 QT 254 T 145 QTc 441 Conclusion Atrial fibrillation with rapid ventricular response with premature ventricular or aberrantly conducted complexes Marked ST abnormality, possible inferolateral subendocardial injury Abnormal ECG Electronically signed by : Ricardo Timmons, 02/08/2021 16:47:23
--- NOTE | 2021-02-08 13:26 | PC.NURSE ---
notified RT of abg and bipap request per ER MD
--- NOTE | 2021-02-08 13:29 | CT_ITS ---
PROCEDURE: CT ANGIO CHEST PE PROTOCOL CLINCIAL INDICATION: dypsnea pe suspected COMPARISON: CT CT CHEST W CON from 11/29/[address] ABDOMEN PELVIS W CON from 11/29/2020 TECHNIQUE: IV Contrast: 70ML Isovue 370 Axial images obtained with sagittal and coronal reformats. All CT scans at the facility use one or more dose reduction, viz: automated exposure control, ma/kV adjustment per patient size (including targeted exams where dose is matched to indication, i.e. head), or iterative reconstruction technique. FINDINGS: HEART AND MEDIASTINAL STRUCTURES: Atheromatous changes involve the aorta with plaque noted throughout the descending thoracic aorta. No evidence of aneurysm or dissection. No evidence of pulmonary embolus. Mediastinal adenopathy is once again noted. The mediastinal lymph nodes are slightly larger in the AP window. Coronary artery calcifications are present. The subcarinal and middle mediastinal adenopathy does not appear significantly changed. LUNGS AND PLEURAL SPACES: Diffuse pulmonary fibrosis is once again noted. There is mild diffuse superimposed ground-glass attenuation in the lower lobes within the lung bases which has developed also with mild ground-glass opacification in the left upper lobe with peripheral subpleural opacities. Numerous subpleural and parenchymal nodular opacities are once again noted. No pleural effusion. BONY STRUCTURES: No acute bony abnormalities apparent. UPPER ABDOMEN: 5 cm left adrenal mass containing punctate areas of calcification appears stable. Gallbladder wall appears thickened with biliary dilatation once again noted. ADDITIONAL FINDINGS: No other significant abnormalities. IMPRESSION: 1. No evidence of pulmonary embolus. 2. Diffuse pulmonary fibrosis with superimposed diffuse ground-glass opacification of the lungs as described above. This may be inflammatory or infectious. Covid19 pneumonia would be included in the differential diagnosis. Pulmonary edema is also consideration. 3. No change left adrenal mass. 4. Gallbladder wall thickening with mild prominence of the common bile duct and mild thickening of the wall the common bile duct. Consider nonemergent MRI and MRCP for further evaluation Dictated by: [place] Veronica MD 02/08/2021 15:07 [place] Veronica MD in [facility] 02/08/2021 15:07
--- NOTE | 2021-02-08 13:31 | PC.NURSE ---
RT at BS
[2021-02-08 13:43] LABS: ABG HCO3 17.5 mmhg (22.0-26.0); ABG Oxygen Saturation 84 % (90-100); ABG PH 7.48 mmol/L (7.35-7.45); ABG TCO2 18.2 mmhg (23-27)
[2021-02-08 13:43] LABS: Alanine Aminotransferase 54 U/L (12-78); Albumin Level 3.7 g/dl (3.5-5.0); Alkaline Phosphatase 243 U/L (38-126); Anion Gap 19.8 mEq/L (5-15); Aspartate Amino Transferase 72 U/L (17-59); Bilirubin,Total 1.7 mg/dl (0.2-1.3); Blood Urea Nitrogen 20 mg/dl (9-20); Calcium 8.8 mg/dl (8.4-10.2); Carbon Dioxide 20 mmol/L (22.0-30.0); Chloride 106 mmol/L (98-107); Creatinine Clearance Estimated 100 mL/min (50-200); Estimated Glomerular Filt Rate 73 ml/min (>60); GFR (African American) 88 ML/MIN (>60); Globulin 3.7 g/dL (1.3-3.2); Glucose 218 mg/dl (74-100); Potassium 3.8 mmoL/L (3.5-5.1); Sodium 142 mmol/L (136-145); Total Protein,Serum 7.4 g/dl (6.3-8.2)
[2021-02-08 13:44] LABS: Basophils # 0.1 K/mm3 (0-0.2); Basophils % 0.4 % (0.1-2.0); Eosinophils % 0.1 % (0.1-12.0); Hematocrit 41.2 % (42.0-52.0); Hemoglobin 11.6 g/dL (14.1-18.0); Lymphocytes % 9.3 % (10-50); Mean Corpuscular HGB Conc 28.2 g/dL (31.8-35.4); Mean Corpuscular Hemoglobin 26.1 pg (27.0-31.2); Mean Corpuscular Volume 92.7 fl (80-94); Mean Platelet Volume 7.8 fl (7.4-10.4); Monocytes # 1.1 K/mm3 (0.1-1.0); Monocytes % 5.2 % (1.7-9.3); Neutrophils # 18.6 K/mm3 (1.8-7.8); Platelet Count 524 K/mm3 (142-424); Red Blood Count 4.44 M/mm3 (4.60-6.20); Red Cell Distribution Width 23.6 % (11.5-17.5)
[2021-02-08 13:44] LABS: Allen's Test ACCEPTABLE; Oxygen 100% %; Sodium Arterial 137 mmol/L (137-145); Source R RADIAL
[2021-02-08 13:45] LABS: Chloride, Arterial 107 mmol/L (98-107)
--- NOTE | 2021-02-08 13:47 | PC.NURSE ---
Off with patient with cardiac monitoring at this time
[2021-02-08 13:48] LABS: ABG PO2 47.4 mmhg (80-100)
[2021-02-08 13:49] LABS: Prothrombin Time 39.2 seconds (10.1-12.5)
[2021-02-08 13:49] LABS: Calcium, Arterial 4.4 mg/dL (8.5-10.1); Lactate Arterial 5.4 mmol/L (0.4-2.0); Potassium, Arterial 3.3 mmoL/L (3.5-5.1)
--- NOTE | 2021-02-08 13:50 | PC.NURSE ---
pt to CT with rad staff and girma del castillo for monitoring
[2021-02-08 13:51] LABS: INR 3.66 (0.9-1.1)
--- NOTE | 2021-02-08 13:53 | INFXCTL.NOTE ---
ER notified of critical lactic acid and calcium and ABG results per davidrn
[2021-02-08 13:58] LABS: White Blood Count 21.9 K/mm3 (4.8-10.8)
[2021-02-08 13:59] LABS: MANUAL DIFFERENTIAL MANUAL DIFFERENTIAL (MANUAL DIFF)
[2021-02-08 14:00] LABS: Procalcitonin 0.486 ng/mL (0.0-2.0)
--- NOTE | 2021-02-08 14:16 | PC.NURSE ---
pt return from ct
[2021-02-08 14:20] LABS: Lactic Acid 7.5 mmol/L (0.7-2.1)
[2021-02-08 14:25] LABS: NT Pro Brain Natriuretic Pep. 3190 pg/mL (0-125)
--- NOTE | 2021-02-08 14:36 | PC.NURSE ---
ER MD notified per GLORIA France of hypotension. ER MD gave verbal order for IV fluids
[2021-02-08 14:37] LABS: Lymphocytes % 5 % (10-50); Monocytes % 6 % (2-9); Neutrophils % 89 % (42-76); Total Cells Counted 100
[2021-02-08 14:38] LABS: Hypochromasia 3+; Macrocytosis 1+; Microcytosis 1+; Platelet Estimate Normal
[2021-02-08 14:39] LABS: Anisocytosis 1+
--- NOTE | 2021-02-08 15:00 | PC.NURSE ---
Pt drank water per okay of BALA MATA at this time, tolerated well. pt repositioned in bed, blankets behind lower back and pillow available in bed. call light within reach. will continue to monitor.
--- NOTE | 2021-02-08 15:28 | HMH.EDGENADL ---
ED Disposition Clinical Impression: Severe sepsis, Atrial fibrillation with RVR CHF, acute Qualifiers: Heart failure type: unspecified Qualified Code(s): I50.9 - Heart failure, unspecified Acute respiratory failure Qualifiers: Respiratory failure complication: hypoxia Qualified Code(s): J96.01 - Acute respiratory failure with hypoxia Disposition: Still a Patient Condition on Discharge: Good - Critical Care Critical Care Time: Yes Attestation: On 02/08/21, the high probability of a clinically significant, sudden or life threatening deterioration of the following system(s) required my full and direct attention, intervention and personal management. The time I documented below is in addition to time spent performing reported procedures but includes the following listed in this critical care notation. Vital system(s) involved:: Circulatory Failure, Respiratory Failure My critical care processes included: Assessment & monitoring of V/S, Initial and Re-exams, Data Review/Interpretation, Coordinating Care, Medication Orders and management, Documentation Medical Decision Making - Medical Records Medical records reviewed: Yes: I reviewed the patient's medical records. - Macario Inquiry Pt receiving controlled substance: No Vital Signs: 02/08/21 13:08 02/08/21 13:31 02/08/21 14:19 Pulse Rate 191 H 174 H Pulse Rate [Apical] 196 H Respiratory Rate 50 H 39 H 38 H Blood Pressure 121/55 L 177/102 H Blood Pressure [Right Arm] 107/89 L Blood Pressure Mean [Right Arm] 95 Blood Pressure Source Blood Pressure Source [Right Arm] Automatic Cuff Blood Pressure Position Blood Pressure Position [Right Arm] Sitting 02 Sat by Pulse Oximetry 56 L 82 L 90 L Oxygen Delivery Method Room Air Non-Rebreather BiPAP Oxygen Flow Rate (LPM) 15 02/08/21 14:33 02/08/21 14:35 02/08/21 14:40 Pulse Rate 162 H 182 H 172 H Pulse Rate [Apical] Respiratory Rate 38 H 36 H 36 H Blood Pressure 89/53 L 80/53 L 89/48 L Blood Pressure [Right Arm] Blood Pressure Mean [Right Arm] Blood Pressure Source Automatic Cuff Blood Pressure Source [Right Arm] Blood Pressure Position Sitting Blood Pressure Position [Right Arm] 02 Sat by Pulse Oximetry 84 L 100 100 Oxygen Delivery Method BiPAP BiPAP BiPAP Oxygen Flow Rate (LPM) 02/08/21 14:48 02/08/21 14:52 02/08/21 15:20 Pulse Rate 159 H 157 H 140 H Pulse Rate [Apical] Respiratory Rate 36 H 36 H 36 H Blood Pressure 80/51 L 86/42 L 122/83 Blood Pressure [Right Arm] Blood Pressure Mean [Right Arm] Blood Pressure Source Automatic Cuff Automatic Cuff Automatic Cuff Blood Pressure Source [Right Arm] Blood Pressure Position Sitting Sitting Left Lateral Blood Pressure Position [Right Arm] 02 Sat by Pulse Oximetry 100 100 98 Oxygen Delivery Method BiPAP BiPAP BiPAP Oxygen Flow Rate (LPM) 02/08/21 15:30 02/08/21 15:46 Pulse Rate 146 H 157 H Pulse Rate [Apical] Respiratory Rate 36 H 34 H Blood Pressure 130/91 H 143/77 H Blood Pressure [Right Arm] Blood Pressure Mean [Right Arm] Blood Pressure Source Automatic Cuff Automatic Cuff Blood Pressure Source [Right Arm] Blood Pressure Position Left Lateral Left Lateral Blood Pressure Position [Right Arm] 02 Sat by Pulse Oximetry 100 100 Oxygen Delivery Method BiPAP BiPAP Oxygen Flow Rate (LPM) - Lab Data Lab Results 02/08/21 13:20: WBC 21.9 H*, RBC 4.44 L, Hgb 11.6 L, Hct 41.2 L, MCV 92.7, MCH 26.1 L, MCHC 28.2 L, RDW 23.6 H, Plt Count 524 H, MPV 7.8, Neut % (Auto) 85.0 H, Lymph % (Auto) 9.3 L, [place] % (Auto) 5.2, Eos % (Auto) 0.1, Baso % (Auto) 0.4, Neut # (Auto) 18.6 H, Lymph # (Auto) 2.0, [place] # (Auto) 1.1 H, Eos # (Auto) 0.0, Baso # (Auto) 0.1, Total Counted 100, Neutrophils % (Manual) 89 H, Lymphocytes % (Manual) 5 L, Monocytes % (Manual) 6, Platelet Estimate Normal, Hypochromasia 3+, Anisocytosis 1+, Microcytosis 1+, Macrocytosis 1+ 02/08/21 13:20: PT 39.2 H, INR 3.66 H 02/08/21 13:20
[2021-02-08 15:31] LABS: Coronavirus 19, PCR Not Detected (NotDetected); Influenza A, PCR Not Detected (NotDetected); Influenza B, PCR Not Detected (NotDetected)
--- NOTE | 2021-02-08 15:34 | PC.NURSE ---
ER MD states he only wants pt to have 1 L of IVF NS, Sepsis bolus order was entered per ER MD verbal order r/t sepsis criteria and bp trending low. However r/t improvement of bp and pt BNP elevated ER MD states to only give 1 L of NS sepsis bolus to start Cardiazem drip for rate control and colin continue to monitor pt.
--- NOTE | 2021-02-08 15:51 | PC.NURSE ---
BALA MATA spoke with Dr. Rosales at this time
--- NOTE | 2021-02-08 15:58 | PC.NURSE ---
bed assignment requested, [id number], all staff notified
--- NOTE | 2021-02-08 17:06 | PC.NURSE ---
Attempted to call report to 2nd floor RN but she stated she will call Harley RN right back
--- NOTE | 2021-02-08 17:07 | PC.NURSE ---
called report to Kerry Blanco at this time
--- NOTE | 2021-02-08 17:16 | PC.NURSE ---
Titrated Cardizem drip to 10mg/hr at this time
--- NOTE | 2021-02-08 17:19 | PC.NURSE ---
severe sepsis work flow sheet in chart
--- NOTE | 2021-02-08 17:34 | PC.NURSE ---
Called Mike Pharmacist at [facility] for Vanc consult at this time
--- NOTE | 2021-02-08 17:41 | PC.NURSE ---
delivered Vancomycin 2gm at this time
--- NOTE | 2021-02-08 17:43 | HMH.PHAVTE ---
[facility] Pharmacy VTE Monitoring - Patient Demographics Admission date: 02/08/21 Report Date: 02/08/21 Time: 17:43 Allergies/Adverse Reactions: Patient Allergies No Known Allergies Allergy (Verified 01/20/21 10:00) Height: 1.83 m Weight: 108.862 kg Patient Problems: Current Active Problems Severe sepsis (Acute) Atrial fibrillation with RVR (Acute) CHF, acute (Acute) Acute respiratory failure (Acute) - VTE Risk Labs: VTE Related Lab Results Hgb 11.6 g/dL (14.1-18.0) L 02/08/21 13:20 Hct 41.2 % (42.0-52.0) L 02/08/21 13:20 Plt Count 524 K/mm3 (142-424) H 02/08/21 13:20 PT 39.2 seconds (10.1-12.5) H 02/08/21 13:20 INR 3.66 (0.9-1.1) H 02/08/21 13:20 BUN 20 mg/dl (9-20) 02/08/21 13:20 Creatinine 1.00 mg/dl (0.66-1.25) 02/08/21 13:20 Estimated Creat Clear 100 mL/min (50-200) 02/08/21 13:20 Clinical Trial Participant: No - Prophylaxis VTE Prophylaxis Ordered?: Yes Types of VTE Prophylaxis: TEDS Knee High, Pharmacological Pharmacologic Type: Warfarin
[2021-02-08 17:44] LABS: Reflex Lactic Add Lactic Reflex
--- NOTE | 2021-02-08 18:08 | HMH.HP ---
*Admission Date: 02/08/21 *Chief complaint: respiratory distress. *History of present illness: 75-year-old male with history of lung cancer, COPD, chronic RLE wound/exposed bone, who presented to the ER with severe shortness of breath worsening over the last 2 days but building over the past week. Per history from documentation in the ER, patient stated he had a nonproductive cough that had been worsening over the past week. reports presence of cough and shortness of breath. Of note he was diagnosed with lung cancer a little over 2 years ago and has been taking Keytruda maintenance therapy. No report of chills, fever, chest pain, nausea or vomiting. Initial work-up in the ER concerning for tachypnea, tachycardia (A. fib with RVR, elevated lactate of 7.5, hypoxemia, and elevated white count over 20,000. Patient meeting criteria for severe sepsis. Chest imaging positive for multifocal patchy airspace disease. Patient admitted to medicine for further management Interview with patient's at time of assessment after arriving to the floor, she states he appears somewhat better than when they first arrived. He had been getting worse over the past week. She convinced him today to come to the hospital for evaluation. She states he is due for Keytruda therapy later this week (on ) with Dr. Reza at [facility]. He is on chronic warfarin therapy due to history of A. fib. Also on Plavix and aspirin. She additionally describes his longstanding right lower extremity wound that is been present for over 2-1/2 years since fracturing his leg. Has had hardware placed and removed over the years. On antibiotics for over 2 years. Takes doxycycline several days a week for maintenance therapy for osteomyelitis. Wound has never fully closed and is open at this time. Denies any worsening redness, warmth, drainage from leg. [facility] History I have reviewed the patient's past medical history: Yes Medical History: Reports:: Arrhythmia, Atrial Fibrillation, Cancer (LUNG), Chronic Obstructive Pulmonary Disease (COPD), Coronary Artery Disease, Hyperlipidemia, Hypertension, MRSA Denies:: Diabetes Mellitus Type 1, Diabetes Mellitus Type 2, Internal Pacemaker, Seizures *Have you ever received a pneumonia vaccine?: Yes *Have you received a flu vaccine this season?: Yes Other Medical History: Reports: Arthritis, Cataracts, Chemotherapy Laterality Cases: Right: Other, Bilateral: Arthroscopy Knee Other Surgeries: Yes: No Previous Surgery, Cancer Surgery, Cardiac Catheterization, Coronary Stent. No: Pacemaker Amputation: No Fractures: No - *Social History Last grade of school completed: 11th or 12th Smoking Status: Former smoker Tobacco Type: cigarettes # Packs/Day (cigarettes): 1 #Yrs smoked (if former smoker): 60 Alcohol Intake: never Substance Use Type: denies use *Occupational Status:: retired, disabled Housing: house Household Members: spouse *Travel in the last 8 weeks: None Family Hx:: Cancer, Diabetes Review of Systems - Review of Systems Review of systems:: pertinent systems reviewed and negative unless documented below (14 point review of systems performed, pertinent positives and negatives as per HPI) Meds Home Medications Medication Instructions Recorded Confirmed Type Furosemide [Furosemide 40MG tAB*] 40 mg PO DAILY 09/08/18 02/08/21 History Metoprolol Tartrate [Lopressor 100 100 mg PO DAILY 09/08/18 02/08/21 History mg Tablets] Oxycodone HCl/Acetaminophen 10 mg PO Q6HP PRN 09/08/18 01/20/21 History [Oxycodone W/Apap 325mg Tablet] albuterol sulfate 90 mcg/actuation 1 inh INHALATION QID 02/05/20 01/20/21 History aerosol inhaler aspirin 81 mg tablet,delayed 81 mg PO DAILY 02/05/20 01/20/21 History release atorvastatin 10 mg tablet 10 mg PO DAILY 02/05/20 02/08/21 History budesonide-formoterol HFA 160 2 puff INHALATION BID 02/05/20 01/20/21 History mcg-4.5 mcg/actuation aerosol inhaler Docusate So
[2021-02-08 19:02] LABS: ABG Base Excess -3.3 mmol/L (-2.4-2.3); ABG HCO3 20.2 mmhg (22.0-26.0); ABG Oxygen Saturation 95 % (90-100); ABG PCO2 27.6 mmhg (35.0-45.0); ABG PH 7.48 mmol/L (7.35-7.45); ABG PO2 73.9 mmhg (80-100)
[2021-02-08 19:03] LABS: Allen's Test Y; Oxygen 50 %; Source R/R
--- NOTE | 2021-02-08 19:24 | PC.NURSE ---
Unable to find camera for picture of rle, consent has been obtained and is on the chart
[2021-02-08 22:42] LABS: Occult Blood,Gastric Fluid Negative (Negative)
[2021-02-09] VITALS (20 sets, daily range): BP systolic 98–147; BP diastolic 40–81; PULSE 94–145; RESP 16–33; TEMP 36.8–37.9; O2SAT 88–100; BMI 32.5
--- NOTE | 2021-02-09 03:55 | PC.NURSE ---
1999 heart suddenly dropping into the 70s cardizem drip decreased from 20 to 10 mg. 2199 heart rate sustaining 90s to low 100s cardizem drip decreased to 5 mg. 129 sulaiman has been having significant pauses with heart rate dropping as low as 38 on monitor. patient becomes symptomatic at these times with o2 sats dropping to low 80s and becoming nauseated with vomiting. emesis dark brown. patient has been treated with zofran. cardizem drip stopped due to symptomatic bradycardia [address] dr. fernando paged several times with no return call. situation discussed with hospitality housekeeper sulaiman has had no further sixto episodes since cardizem stopped. tolerating vapotherm, have had to increase settings throughout shift. currently on 35 flow and 100% satssustaining between 88-91%, respiratory pattern remains labored but has decreased. patient can now speak in complete sentences without gasping for air as he was on initial assessment.
[2021-02-09 05:59] LABS: Basophils % 0.2 % (0.1-2.0); Eosinophils # 0.1 K/mm3 (0.0-0.4); Eosinophils % 0.5 % (0.1-12.0); Hematocrit 32.8 % (42.0-52.0); Lymphocytes # 1.1 K/mm3 (0.7-4.5); Lymphocytes % 5.6 % (10-50); Mean Corpuscular HGB Conc 30.3 g/dL (31.8-35.4); Mean Corpuscular Hemoglobin 27.2 pg (27.0-31.2); Mean Corpuscular Volume 89.7 fl (80-94); Mean Platelet Volume 8.7 fl (7.4-10.4); Monocytes # 0.7 K/mm3 (0.1-1.0); Monocytes % 3.7 % (1.7-9.3); Neutrophils # 16.9 K/mm3 (1.8-7.8); Platelet Count 361 K/mm3 (142-424); Red Blood Count 3.66 M/mm3 (4.60-6.20); Red Cell Distribution Width 24.1 % (11.5-17.5); White Blood Count 18.8 K/mm3 (4.8-10.8)
[2021-02-09 06:06] LABS: Anion Gap 10.8 mEq/L (5-15); Blood Urea Nitrogen 24 mg/dl (9-20); Calcium 8.1 mg/dl (8.4-10.2); Carbon Dioxide 25 mmol/L (22.0-30.0); Chloride 109 mmol/L (98-107); Creatinine Clearance Estimated 100 mL/min (50-200); Estimated Glomerular Filt Rate 94 ml/min (>60); GFR (African American) 114 ML/MIN (>60); Glucose 139 mg/dl (74-100); Potassium 3.8 mmoL/L (3.5-5.1); Sodium 141 mmol/L (136-145)
[2021-02-09 06:13] LABS: MANUAL DIFFERENTIAL MANUAL DIFFERENTIAL (MANUAL DIFF)
[2021-02-09 06:17] LABS: INR 4.24 (0.9-1.1)
--- NOTE | 2021-02-09 06:20 | PC.NURSE ---
stool and emesis dark in color with stool appearing tarry. samples sent for occult blood
--- NOTE | 2021-02-09 06:24 | PC.NURSE ---
patient has had no further episode of bradycardia since cardizem drip off. 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 on rare occasions heart rate will suddenly drop into the 70s briefly. patient does not become symptomatic with these drops. heart rate increases to 130-140s with any activity. resp pattern become labored with rr in the high 20s. vapotherm settings maxed on 40 l and 100%. does not tolerate bipap well. sats sustain 88-93%
[2021-02-09 06:46] LABS: Occult Blood,Stool Positive (Negative)
--- NOTE | 2021-02-09 07:29 | PC.NURSE ---
Dr. Timmons notified of PT 45 and INR 4.24
[2021-02-09 07:43] LABS: Lymphocytes % 3 % (10-50); Monocytes % 3 % (2-9); Neutrophils % 94 % (42-76); Platelet Estimate Normal; RBC Morphology Normal; Total Cells Counted 100
--- NOTE | 2021-02-09 08:19 | HMH.ACPN2 ---
Internal Medicine - PN: Subj *Date: 02/09/21 *Time: 08:19 Interval history: Patient remains in intensive care unit on high flow Vapotherm and was on diltiazem drip until early this morning when his heart rate was down in the 30s. Diltiazem drip discontinued several hours ago. Patient states that he feels better, but remains dyspneic when he gets up and moves around. At rest his dyspnea has improved nicely. Exam Vital signs and Labs for Last 24 Hours: Temp Pulse Resp BP Pulse Ox 99.2 F 127 H 28 H 115/41 L 93 L 02/09/21 04:00 02/09/21 06:00 02/09/21 06:00 02/09/21 06:00 02/09/21 06:00 Laboratory Results - last 24 hr 02/08/21 13:20: WBC 21.9 H*, RBC 4.44 L, Hgb 11.6 L, Hct 41.2 L, MCV 92.7, MCH 26.1 L, MCHC 28.2 L, RDW 23.6 H, Plt Count 524 H, MPV 7.8, Neut % (Auto) 85.0 H, Lymph % (Auto) 9.3 L, [place] % (Auto) 5.2, Eos % (Auto) 0.1, Baso % (Auto) 0.4, Neut # (Auto) 18.6 H, Lymph # (Auto) 2.0, [place] # (Auto) 1.1 H, Eos # (Auto) 0.0, Baso # (Auto) 0.1, Total Counted 100, Neutrophils % (Manual) 89 H, Lymphocytes % (Manual) 5 L, Monocytes % (Manual) 6, Platelet Estimate Normal, Hypochromasia 3+, Anisocytosis 1+, Microcytosis 1+, Macrocytosis 1+ 02/08/21 13:20: PT 39.2 H, INR 3.66 H 02/08/21 13:20: Sodium 142, Potassium 3.8, Chloride 106, Carbon Dioxide 20 L, Anion Gap 19.8 H, BUN 20, Creatinine 1.00, Estimated Creat Clear 100, Estimated GFR 73, Est GFR ( Amer) 88, Glucose 218 H, Calcium 8.8, Total Bilirubin 1.7 H, AST 72 H, ALT 54, Alkaline Phosphatase 243 H, Total Protein 7.4, Albumin 3.7, Globulin 3.7 H, Albumin/Globulin Ratio 1.0 L 02/08/21 13:20: Lactate 7.5 H 02/08/21 13:20: Procalcitonin 0.486 02/08/21 13:20: NT-Pro-B Natriuret Pep 3190 H 02/08/21 13:29: Specimen Source R radial, O2 % 100%, ABG pH 7.48 H, ABG pCO2 24.0 L, ABG pO2 47.4 L, ABG HCO3 17.5 L, ABG Total CO2 18.2 L, ABG O2 Saturation 84 L*, ABG Base Excess -6.0 L, [place] Test Acceptable, ABG Sodium 137, ABG Potassium 3.3 L, ABG Chloride 107, ABG Lactate 5.4 H, Arterial Blood Potassium 3.3 L, Arterial Blood Chloride 107, Arterial Blood Ionized Calcium 4.4 L* 02/08/21 15:19: SARS-CoV-2 (PCR) Not detected, Influenza A Untype (PCR) Not detected, Influenza Type B (PCR) Not detected 02/08/21 19:00: Specimen Source R/r, O2 % 50, ABG pH 7.48 H, ABG pCO2 27.6 L, ABG pO2 73.9 L, ABG HCO3 20.2 L, ABG Total CO2 21.0 L, ABG O2 Saturation 95, ABG Base Excess -3.3 L, [place] Test Y 02/08/21 22:00: Gastric Occult Blood Negative 02/09/21 05:41: WBC 18.8 H, RBC 3.66 L, Hgb 10.0 L D, Hct 32.8 L, MCV 89.7, MCH 27.2, MCHC 30.3 L, RDW 24.1 H, Plt Count 361 D, MPV 8.7, Neut % (Auto) 90.0 H, Lymph % (Auto) 5.6 L, [place] % (Auto) 3.7, Eos % (Auto) 0.5, Baso % (Auto) 0.2, Neut # (Auto) 16.9 H, Lymph # (Auto) 1.1, [place] # (Auto) 0.7, Eos # (Auto) 0.1, Baso # (Auto) 0.0, Total Counted 100, Neutrophils % (Manual) 94 H, Lymphocytes % (Manual) 3 L, Monocytes % (Manual) 3, Platelet Estimate Normal, RBC Morphology Normal 02/09/21 05:41: Sodium 141, Potassium 3.8, Chloride 109 H, Carbon Dioxide 25 D, Anion Gap 10.8, BUN 24 H, Creatinine 0.80, Estimated Creat Clear 100, Estimated GFR 94, Est GFR ( Amer) 114 D, Glucose 139 H D, Calcium 8.1 L 02/09/21 05:41: PT 45.0 H, INR 4.24 H 02/09/21 06:00: Stool Occult Blood Positive A I & O for Last 24 hours: Intake & Output 02/06/21 02/07/21 02/08/21 02/09/21 11:59 11:59 11:59 11:59 Intake Total 240 / 240 Balance 240 / 240 Weight 240 lb 11.916 oz Narrative: Patient is alert, pleasant. Heart rate in the 120s in atrial fibrillation but when he settles down and take some deep breaths it drops into the 90s. Blood pressure acceptable in the mid 120 range systolic. Lungs have scattered rhonchi but symmetric air entry, trachea is midline. Heart rate irregular as noted, no murmurs. Abdomen soft. Previously noted chronic wound on the right medial ankle area, otherwise no edema noted. Nursing staff reports guaiac positive stool. Assessme
--- NOTE | 2021-02-09 09:55 | PC.NURSE ---
PT consult (Tom) @ BS. Right medial ankle wound dressing removed. Wound bed measured and cultured. Photo consent signed. Pt reports that he fell aprox 19yrs ago and broke his leg resulting in the chronic wound. Tom ordered to complete wet to dry dressing changes daily to area. Apply petroleum gauze first to wound bed and then wet to dry gauze. Wrap with kerlix and ELEONORA bandage.
--- NOTE | 2021-02-09 10:24 | HMH.PHAINT ---
MEDICATION RECONCILIATION COMPLETE USING MED LIST FROM MD OFFICE AND EXTERNAL PHARMACY FILL HISTORY.
--- NOTE | 2021-02-09 11:10 | HMH.PTWOUND ---
Rehab Inpt Wound Evaluation Rehab IP Wound Evaluation Start: 02/09/21 07:00 Freq: ONCE Status: Active Protocol: Document 02/09/21 11:01 TRISTAN (Rec: 02/09/21 11:10 [email or web address] [email or web address]) Rehab PT Wound Assessment Patient Status Premedicated Prior to Dressing Change No Subjective Subjective No complaints from pt. Pt reports wound was from an open break in 2007. Pt reports his treats and dressies wound w/ wet to dry dressing daily. Pt reports he has had a skin graft which did not take. Pt is on maintenance ABX therapy for chronic osteo. Pt has exposed tibial bone which is brown in coloration w / epidermal rolling at edges of wound. Wound Left Lower Medial Levy Wound Type chronic open fx Wound Length (cm) 6.0 Wound Width (cm) 3.0 Wound Depth (cm) 1.0 Wound Bed Appearance [place] Wound Margins Description Roll Under Edges Surrounding Tissue Appearance Edges Rolled Wound Drainage Description None Drainage Amount None Drainage Odor Slight Odor Dressing Status Dry & Intact Primary Dressing Medicated Gauze Pad Comment vaseline gauze, moistened 4x4 Wound Secondary Dressing Type Non-Adherent Gauze Pad,Gauze Roll/Wrap Wound Debridement Amount of Tissue None Removed Dressing Change Date 02/09/21 Plan/Recommendation Comment At this time wound care and dressing change to be performed by nsg w/ vaseline gauze on exposed bone and WTD dressing changed daily. Surgical debridement of epidermal epiboly to stimulate epithelial growth recommended , w/ possible plastic consult for skin graft. Eval Complexity Eval Charge Codes 58713 - Moderate Complexity G-codes PT Current Status Other PT/OT Status PT Current Status Modifier CN-At least 100% impaired, limited or restricted PT Goal Status Other PT/OT Status PT Goal Status Modifer CN-At least 100% impaired, limited or restricted
[2021-02-09 12:41] LABS: Lactic Acid 1.5 mmol/L (0.7-2.1)
--- NOTE | 2021-02-09 12:59 | PC.NURSE ---
updated Dr. Timmons regarding Afib 110-140s and that next po dose of Diltiazem 30mg is not due until 1630. He ordered Diltiazem 5mg IV x 1 dose. Order faxed to pharmacy.
--- NOTE | 2021-02-09 21:18 | PC.NURSE ---
temp spike, patient diaphoretic, hr 130s 140s sustained.
--- NOTE | 2021-02-09 21:33 | CA_ITS ---
APPROVED REPORT EXAM: Comprehensive 2D, Doppler, and color-flow Echocardiogram Body Team Member: Peggy Sesay CRT Ht: 6 ft 0 in Wt: 240lbs BSA: 2.30 BP: 120/58 mmHg Indications: COPD, Atrial Fibrillation, pauses, lung ca, chemo, stent, M-Mode Dimensions RVDd 2.90 cm (0.9-2.6) LA Diam 3.70 cm (1.9-4.0) LVDd 5.60 cm (3.5-5.7) Ao Diam 4.50 cm (2.0-3.7) AV Cusp 1.80 cm (1.5-2.6) IVSd 2.00 cm (0.6-1.1) PWd 0.90 cm (0.6-1.1) EF (Teich) 37.00% Tricuspid Valve TV Vmax 333.00 (30-100 cm/s) RVSP 54.00 mmHg Left Ventricle Left atrium is mildly enlarged, left ventricle is normal size, mild concentric left ventricular hypertrophy, visually estimated ejection fraction 55% with no regional wall motion abnormality, diastolic parameters are inconclusive. Right Ventricle Right atrium and right ventricle are mildly enlarged with normal contractility. Aortic Valve Aortic valve is thickened and calcified without aortic stenosis or aortic insufficiency. Mitral Valve Mitral valve leaflets are minimally thickened, there is mild mitral regurgitation. Tricuspid Valve Tricuspid valve grossly normal, there is mild tricuspid regurgitation, calculated right ventricular systolic pressure is 43 mmHg. Pulmonic Valve Pulmonic valve is poorly visualized. Great Vessels Aortic root is normal size. Pericardium No significant pericardial effusion noted. Conclusion 1. Biatrial enlargement, normal left ventricular size, mild concentric left ventricular hypertrophy, visually estimated ejection fraction 55% with no regional wall motion abnormality, diastolic parameters are inconclusive. 2. Mildly enlarged right ventricle with normal contractility. 3. Thickened and calcified aortic valve without aortic stenosis or aortic insufficiency. 4. Mild mitral and tricuspid regurgitation. Calculated right ventricular systolic pressure is 43 mmHg. 5. No significant pericardial effusion noted. Inferior vena cava is normal size with normal inspiratory collapse. Electronically signed by : Wai Masters, 02/11/2021 09:42:41
[2021-02-10] VITALS (20 sets, daily range): BP systolic 127–157; BP diastolic 58–75; PULSE 103–139; RESP 17–34; TEMP 36.1–37.3; O2SAT 84–96; BMI 32.8
[2021-02-10 05:00] LABS: Chloride 108 mmol/L (98-107)
[2021-02-10 05:01] LABS: Potassium 3.5 mmoL/L (3.5-5.1); Sodium 143 mmol/L (136-145)
[2021-02-10 05:03] LABS: Alanine Aminotransferase 28 U/L (12-78); Alkaline Phosphatase 223 U/L (38-126); Aspartate Amino Transferase 45 U/L (17-59); Bilirubin,Total 0.8 mg/dl (0.2-1.3); Blood Urea Nitrogen 20 mg/dl (9-20); Creatinine Clearance Estimated 100 mL/min (50-200); Estimated Glomerular Filt Rate 132 ml/min (>60); GFR (African American) 159 ML/MIN (>60); Hematocrit 33.1 % (42.0-52.0); Lymphocytes # 0.6 K/mm3 (0.7-4.5); Lymphocytes % 4.9 % (10-50); Mean Corpuscular HGB Conc 30.2 g/dL (31.8-35.4); Mean Corpuscular Hemoglobin 27.5 pg (27.0-31.2); Mean Platelet Volume 8.1 fl (7.4-10.4); Monocytes # 0.3 K/mm3 (0.1-1.0); Monocytes % 2.1 % (1.7-9.3); Neutrophils # 12.2 K/mm3 (1.8-7.8); Neutrophils % 92.9 % (37.0-80.0); Platelet Count 382 K/mm3 (142-424); Red Blood Count 3.64 M/mm3 (4.60-6.20); Red Cell Distribution Width 23.6 % (11.5-17.5); White Blood Count 13.1 K/mm3 (4.8-10.8)
[2021-02-10 05:04] LABS: Albumin/Globulin Ratio 0.9 (1.1-1.8); Calcium 8.7 mg/dl (8.4-10.2); Carbon Dioxide 31 mmol/L (22.0-30.0); Globulin 3.5 g/dL (1.3-3.2); Glucose 163 mg/dl (74-100); Total Protein,Serum 6.5 g/dl (6.3-8.2)
[2021-02-10 05:05] LABS: Anion Gap 7.5 mEq/L (5-15)
[2021-02-10 05:08] LABS: MANUAL DIFFERENTIAL MANUAL DIFFERENTIAL (MANUAL DIFF)
[2021-02-10 05:31] LABS: Lymphocytes % 5 % (10-50); Neutrophils % 95 % (42-76); Total Cells Counted 100
[2021-02-10 05:32] LABS: Hypochromasia 1+; Platelet Estimate Normal
--- NOTE | 2021-02-10 08:55 | PC.NURSE ---
RT (Bev) decreased Vapotherm to 35L/90%. O2 sat low 90s.
--- NOTE | 2021-02-10 09:18 | HMH.ACPN2 ---
Internal Medicine - PN: Subj *Date: 02/10/21 *Time: 09:18 Interval history: Overall patient feels better this morning, has more energy. Overnight his heart rate was in the low 100 range in atrial fibrillation. Respiratory status seems to be improving. Exam Vital signs and Labs for Last 24 Hours: Temp Pulse Resp BP Pulse Ox 96.9 F L 114 H 18 137/59 L 94 L 02/10/21 08:00 02/10/21 08:00 02/10/21 08:00 02/10/21 08:00 02/10/21 08:56 Laboratory Results - last 24 hr 02/09/21 12:14: Lactate 1.5 02/10/21 04:30: Digoxin 0.40 02/10/21 04:30: WBC 13.1 H D, RBC 3.64 L, Hgb 10.0 L, Hct 33.1 L, MCV 91.0, MCH 27.5, MCHC 30.2 L, RDW 23.6 H, Plt Count 382, MPV 8.1, Neut % (Auto) 92.9 H, Lymph % (Auto) 4.9 L, [place] % (Auto) 2.1, Eos % (Auto) 0.0 L, Baso % (Auto) 0.0 L, Neut # (Auto) 12.2 H, Lymph # (Auto) 0.6 L, [place] # (Auto) 0.3, Eos # (Auto) 0.0, Baso # (Auto) 0.0, Total Counted 100, Neutrophils % (Manual) 95 H, Lymphocytes % (Manual) 5 L, Platelet Estimate Normal, Hypochromasia 1+ 02/10/21 04:30: Sodium 143, Potassium 3.5, Chloride 108 H, Carbon Dioxide 31 H D, Anion Gap 7.5, BUN 20, Creatinine 0.60 L D, Estimated Creat Clear 100, Estimated GFR 132, Est GFR ( Amer) 159 D, Glucose 163 H, Calcium 8.7, Total Bilirubin 0.8, AST 45 D, ALT 28 D, Alkaline Phosphatase 223 H, Total Protein 6.5, Albumin 3.0 L, Globulin 3.5 H, Albumin/Globulin Ratio 0.9 L I & O for Last 24 hours: Intake & Output 02/07/21 02/08/21 02/09/21 02/10/21 11:59 11:59 11:59 11:59 Intake Total 240 / 240 4213 / 4213 Output Total 400 / 400 1475 / 1475 Balance -160 / -160 2738 / 2738 Weight 240 lb 11.916 oz 242 lb 8.136 oz Microbiology Reports for the Last 24 Hours: Microbiology 02/09/21 09:50 Leg,Right - Right Gram Stain - Final 02/09/21 09:50 Leg,Right - Right Wound Culture - Preliminary Narrative: Patient is alert, much more energetic. Air movement is much better, still continues to have some expiratory wheezing but no crackles. Heart rate irregular, goes up to the 110s when he moves around. No edema, abdomen soft, neurologically intact. Assessment and Plan (1) Severe sepsis Status: Acute Category: Medical Code(s): A41.9 - Sepsis, unspecified organism; R65.20 - Severe sepsis without septic shock (2) Pneumonia Status: Acute Qualifiers: Laterality: bilateral Category: Medical Code(s): J18.9 - Pneumonia, unspecified organism (3) Acute respiratory failure Status: Acute Qualifiers: Respiratory failure complication: hypoxia Qualified Code(s): J96.01 - Acute respiratory failure with hypoxia Category: Medical Code(s): J96.00 - Acute respiratory failure, unspecified whether with hypoxia or hypercapnia (4) Atrial fibrillation with RVR Status: Acute Category: Medical Code(s): I48.91 - Unspecified atrial fibrillation (5) Class 1 obesity Status: Chronic Category: Medical Code(s): E66.9 - Obesity, unspecified (6) Chronic osteomyelitis of right lower leg Status: Chronic Category: Medical Code(s): M86.661 - Other chronic osteomyelitis, right tibia and fibula (7) Lung cancer Status: Chronic Category: Medical Code(s): C34.90 - Malignant neoplasm of unspecified part of unspecified bronchus or lung - Assessment and plan all Dx Assessment and Plan for all problems:: Overall patient improving. Continue steroids for wheezing. Continue antibiotics for SIRS and outpatient pneumonia. In regards to Patricia ward with RVR I think that treating his lung disease has helped his cardiac situation. We will increase Cardizem dose slightly today. Check INR today, restart warfarin as located. Hold Plavix.
--- NOTE | 2021-02-10 09:55 | PC.NURSE ---
PT (Tom) @ [facility] and changed right medial leg dressing. Dressing is to be changed daily (wet to dry with 1 saline soaked 4x4 gauze, dry 4x4 gauze, kerlix, and ELEONORA bandage).
[2021-02-10 10:45] LABS: INR 5.68 (0.9-1.1); Prothrombin Time 58.9 seconds (10.1-12.5)
--- NOTE | 2021-02-10 10:59 | PC.NURSE ---
received call from lab ([facility]) with PT/INR results (58.9/5.68). Name and verified. Dr. Timmons updated.
--- NOTE | 2021-02-10 11:31 | PC.NURSE ---
pt O2 sat 84-86% on Vapotherm 35L/90%. Contacted RT (Diamante). She increased flow to 40L/100%. O2 sat increased to 92%.
--- NOTE | 2021-02-10 11:40 | HMH.PHACONS ---
- Pharmacy Consult Date: 02/10/21 Time: 11:40 Referring provider: DR. JOHNSON Reason for Consult:: VANCOMCYIN DOSING Allergies and ADEs:: Allergies Allergy/AdvReac Type Severity Reaction Status Date / Time No Known Allergies Allergy Verified 01/20/21 10:00 Home Medications:: Home Medications Medication Instructions Recorded Confirmed Type Metoprolol Tartrate [Lopressor 100 100 mg PO BID 09/08/18 02/09/21 History mg Tablets] Oxycodone HCl/Acetaminophen 1 tab PO Q6HP PRN 09/08/18 02/09/21 History [Oxycodone W/Apap 325mg Tablet] aspirin 81 mg tablet,delayed 81 mg PO DAILY 02/05/20 02/09/21 History release atorvastatin 10 mg tablet 10 mg PO DAILY 02/05/20 02/08/21 History budesonide-formoterol HFA 160 2 puff INHALATION BID 02/05/20 02/09/21 History mcg-4.5 mcg/actuation aerosol inhaler Docusate Sodium [Stool Softener] 250 mg PO DAILY 02/11/20 02/09/21 History Multivitamin [Multivitamins] 1 each PO DAILY 04/20/20 02/09/21 History Clopidogrel Bisulfate [Clopidogrel 75 mg PO DAILY 08/19/20 02/08/21 History 75mg Tab] ursodiol 250 mg tablet 500 mg PO BID 08/19/20 02/09/21 History warfarin 10 mg tablet 9 mg PO DAILY 08/19/20 02/09/21 History doxycycline monohydrate 100 mg 100 mg PO DAILY cap 01/20/21 02/08/21 History capsule torsemide 20 mg tablet 20 mg PO DAILY tab 01/20/21 02/08/21 History Budesonide [Budesonide EC] 9 mg PO DAILY 02/08/21 02/09/21 History Ipratropium/Albuterol Sulfate 1 puff IH QIDP PRN 02/09/21 02/09/21 History [Combivent Respimat Inh] Potassium Chloride [K-Tab ER 20 20 meq PO DAILY 02/09/21 02/09/21 History mEq] Height: 1.83 m Weight: 110 kg Laboratory Results:: Laboratory Results - last 24 hr 02/09/21 12:14: Lactate 1.5 02/10/21 04:30: Digoxin 0.40 02/10/21 04:30: WBC 13.1 H D, RBC 3.64 L, Hgb 10.0 L, Hct 33.1 L, MCV 91.0, MCH 27.5, MCHC 30.2 L, RDW 23.6 H, Plt Count 382, MPV 8.1, Neut % (Auto) 92.9 H, Lymph % (Auto) 4.9 L, [place] % (Auto) 2.1, Eos % (Auto) 0.0 L, Baso % (Auto) 0.0 L, Neut # (Auto) 12.2 H, Lymph # (Auto) 0.6 L, [place] # (Auto) 0.3, Eos # (Auto) 0.0, Baso # (Auto) 0.0, Total Counted 100, Neutrophils % (Manual) 95 H, Lymphocytes % (Manual) 5 L, Platelet Estimate Normal, Hypochromasia 1+ 02/10/21 04:30: Sodium 143, Potassium 3.5, Chloride 108 H, Carbon Dioxide 31 H D, Anion Gap 7.5, BUN 20, Creatinine 0.60 L D, Estimated Creat Clear 100, Estimated GFR 132, Est GFR ( Amer) 159 D, Glucose 163 H, Calcium 8.7, Total Bilirubin 0.8, AST 45 D, ALT 28 D, Alkaline Phosphatase 223 H, Total Protein 6.5, Albumin 3.0 L, Globulin 3.5 H, Albumin/Globulin Ratio 0.9 L 02/10/21 10:00: PT 58.9 H, INR 5.68 H Medical History: Reports:: Arrhythmia, Atrial Fibrillation, Cancer (LUNG), Chronic Obstructive Pulmonary Disease (COPD), Coronary Artery Disease, Hyperlipidemia, Hypertension, MRSA Denies:: Diabetes Mellitus Type 1, Diabetes Mellitus Type 2, Internal Pacemaker, Seizures Assessment and Plan (1) Severe sepsis Status: Acute Category: Medical Code(s): A41.9 - Sepsis, unspecified organism; R65.20 - Severe sepsis without septic shock (2) Pneumonia Status: Acute Qualifiers: Laterality: bilateral Category: Medical Code(s): J18.9 - Pneumonia, unspecified organism (3) Acute respiratory failure Status: Acute Qualifiers: Respiratory failure complication: hypoxia Qualified Code(s): J96.01 - Acute respiratory failure with hypoxia Category: Medical Code(s): J96.00 - Acute respiratory failure, unspecified whether with hypoxia or hypercapnia (4) Atrial fibrillation with RVR Status: Acute Category: Medical Code(s): I48.91 - Unspecified atrial fibrillation (5) Class 1 obesity Status: Chronic Category: Medical Code(s): E66.9 - Obesity, unspecified (6) Chronic osteomyelitis of right lower leg Status: Chronic Category: Medical Code(s): M86.661 - Other chronic osteomyelitis, right tibia and fibula (7) Lung c
[2021-02-10 15:34] LABS: ABG Base Excess 0.3 mmol/L (-2.4-2.3); ABG HCO3 25.6 mmhg (22.0-26.0); ABG PCO2 45.9 mmhg (35.0-45.0); ABG PH 7.37 mmol/L (7.35-7.45); ABG PO2 65.8 mmhg (80-100); ABG TCO2 27.1 mmhg (23-27)
[2021-02-10 15:35] LABS: ABG Oxygen Saturation 91 % (90-100); Allen's Test ACCEPTABLE; Oxygen 100% %; Source L RADIAL
[2021-02-10 22:45] LABS: Vancomycin,Peak 19.8 ug/ml (11-39)
--- NOTE | 2021-02-10 23:05 | PC.NURSE ---
His sats have decreased to the low 80s frequently. He occasionally rebounds to the mid to higher 80s. Continues on vapotherm at 40LPM 100% FiO2. He reports a productive cough. He continues in uncontrolled afib. He has received PRN medications for pain and nausea.
--- NOTE | 2021-02-10 23:13 | PC.NURSE ---
Afib with PVCs and occasional couplets on telemetry.
[2021-02-11] VITALS (16 sets, daily range): BP systolic 106–151; BP diastolic 47–93; PULSE 80–145; RESP 18–34; TEMP 36.3–37.2; O2SAT 75–96
[2021-02-11 01:09] LABS: ABG Base Excess -2.5 mmol/L (-2.4-2.3); ABG HCO3 22.1 mmhg (22.0-26.0); ABG Oxygen Saturation 84 % (90-100); ABG PCO2 35.4 mmhg (35.0-45.0); ABG PH 7.41 mmol/L (7.35-7.45); ABG PO2 50.7 mmhg (80-100); ABG TCO2 23.2 mmhg (23-27)
[2021-02-11 01:11] LABS: Allen's Test Acceptable; Source Right Radial
--- NOTE | 2021-02-11 05:33 | PC.NURSE ---
Attempted to obtain weight, pt unable to tolerate standing scale.
--- NOTE | 2021-02-11 05:35 | PC.NURSE ---
Respiratory notified of O2 sat 80%. Pt denies pain.
[2021-02-11 06:02] LABS: Microscopic, Urine URINE MICROSCOPIC (MICROSCOPIC)
[2021-02-11 06:09] LABS: Basophils % 0.1 % (0.1-2.0); Hematocrit 32.3 % (42.0-52.0); Hemoglobin 9.6 g/dL (14.1-18.0); Lymphocytes # 0.6 K/mm3 (0.7-4.5); Mean Corpuscular HGB Conc 29.7 g/dL (31.8-35.4); Mean Corpuscular Hemoglobin 26.9 pg (27.0-31.2); Mean Corpuscular Volume 90.6 fl (80-94); Mean Platelet Volume 8.1 fl (7.4-10.4); Monocytes # 0.6 K/mm3 (0.1-1.0); Neutrophils # 18.9 K/mm3 (1.8-7.8); Neutrophils % 93.9 % (37.0-80.0); Platelet Count 446 K/mm3 (142-424); Red Blood Count 3.56 M/mm3 (4.60-6.20); Red Cell Distribution Width 23.2 % (11.5-17.5); White Blood Count 20.1 K/mm3 (4.8-10.8)
[2021-02-11 06:11] LABS: Appearance,Urine CLEAR (Clear); Bilirubin,Urine Negative (Negative); Blood, Urine 2+ (Negative); Color,Urine YELLOW (Yellow); Glucose,Urine (UA) Negative (Negative); Ketones,Urine Negative (Negative); Leukocyte Esterase,Urine Negative (Negative); Nitrate,Urine Negative (Negative); Protein,Urine Negative (Negative); Urobilinogen,Urine 0.2 EU/dl (0.2)
[2021-02-11 06:14] LABS: Alanine Aminotransferase 33 U/L (12-78); Albumin Level 2.8 g/dl (3.5-5.0); Albumin/Globulin Ratio 0.8 (1.1-1.8); Alkaline Phosphatase 282 U/L (38-126); Anion Gap 10.9 mEq/L (5-15); Aspartate Amino Transferase 44 U/L (17-59); Bilirubin,Total 0.8 mg/dl (0.2-1.3); Blood Urea Nitrogen 20 mg/dl (9-20); Calcium 8.7 mg/dl (8.4-10.2); Carbon Dioxide 27 mmol/L (22.0-30.0); Chloride 109 mmol/L (98-107); Creatinine Clearance Estimated 101 mL/min (50-200); Estimated Glomerular Filt Rate 132 ml/min (>60); GFR (African American) 159 ML/MIN (>60); Globulin 3.4 g/dL (1.3-3.2); Glucose 158 mg/dl (74-100); Magnesium 1.9 mg/dl (1.6-2.3); Potassium 3.9 mmoL/L (3.5-5.1); Sodium 143 mmol/L (136-145); Total Protein,Serum 6.2 g/dl (6.3-8.2)
[2021-02-11 06:20] LABS: MANUAL DIFFERENTIAL MANUAL DIFFERENTIAL (MANUAL DIFF)
[2021-02-11 06:30] LABS: INR 5.05 (0.9-1.1); Prothrombin Time 52.9 seconds (10.1-12.5)
[2021-02-11 06:32] LABS: Vancomycin,Trough 12.4 ug/mL (5.0-10.0)
[2021-02-11 06:43] LABS: Amorphous Sediment,Urine Trace /lpf; RBC,Urine 20-50 #/hpf (0-3); Red Blood Cell Casts,Urine Occasional #/lpf (0)
--- NOTE | 2021-02-11 07:05 | PC.NURSE ---
Pt's O2 sat has been 88-89% after receiving lasix. Non-rebreather was removed so he could eat and his sats decreased to 72%. He is taking a break from eating at the moment and wearing his non-rebreather in attempts to increase his sats.
--- NOTE | 2021-02-11 07:09 | PC.NURSE ---
O2 sats increased to 89% and pt is attempting to eat some more.
[2021-02-11 08:00] LABS: C-Reactive Protein 213.6 mg/L (0-4)
[2021-02-11 08:05] LABS: Hypochromasia 2+; Lymphocytes % 8 % (10-50); Monocytes % 1 % (2-9); Neutrophils % 91 % (42-76); Nucleated Red Blood Cells 1; Platelet Estimate Slight Increase; Total Cells Counted 100
[2021-02-11 08:12] LABS: Procalcitonin 1.26 ng/mL (0.0-2.0)
[2021-02-11 09:20] LABS: Erythrocyte Sedimentation Rate 94 mm/hr (0-20)
[2021-02-11 11:25] LABS: Adenovirus,PCR Not Detected (NotDetected); Bordetella Pertussis Not Detected (NotDetected); Chlamydophila Pneumoniae, PCR Not Detected (NotDetected); Coronavirus 19, PCR Not Detected (NotDetected); Coronavirus 229E Not Detected (NotDetected); Coronavirus NL63 Not Detected (NotDetected); Coronavirus OC43 Not Detected (NotDetected); Coronovirus HKU1,PCR Not Detected (NotDetected); Human Metapneumovirus Not Detected (NotDetected); Influenza A, PCR Not Detected (NotDetected); Influenza AH1, 2009 Not Detected (NotDetected); Influenza AH1, PCR Not Detected (NotDetected); Influenza AH3,PCR Not Detected (NotDetected); Influenza B, PCR Not Detected (NotDetected); Mycoplasma Pneumoniae, PCR Not Detected (NotDetected); Parainfluenza 1, PCR Not Detected (NotDetected); Parainfluenza 2, PCR Not Detected (NotDetected); Parainfluenza 3, PCR Not Detected (NotDetected); Parainfluenza 4, PCR Not Detected (NotDetected); Respiratory Syncytial Virus Not Detected (NotDetected); Rhinovirus/Enterovirus Not Detected (NotDetected)
--- NOTE | 2021-02-11 15:58 | HMH.PHACONS ---
- Pharmacy Consult Date: 02/11/21 Time: 15:58 Referring provider: DR. JOHNSON Reason for Consult:: VANCOMYCIN LEVELS Allergies and ADEs:: Allergies Allergy/AdvReac Type Severity Reaction Status Date / Time No Known Allergies Allergy Verified 01/20/21 10:00 Home Medications:: Home Medications Medication Instructions Recorded Confirmed Type Metoprolol Tartrate [Lopressor 100 100 mg PO BID 09/08/18 02/09/21 History mg Tablets] Oxycodone HCl/Acetaminophen 1 tab PO Q6HP PRN 09/08/18 02/09/21 History [Oxycodone W/Apap 325mg Tablet] aspirin 81 mg tablet,delayed 81 mg PO DAILY 02/05/20 02/09/21 History release atorvastatin 10 mg tablet 10 mg PO DAILY 02/05/20 02/08/21 History budesonide-formoterol HFA 160 2 puff INHALATION BID 02/05/20 02/09/21 History mcg-4.5 mcg/actuation aerosol inhaler Docusate Sodium [Stool Softener] 250 mg PO DAILY 02/11/20 02/09/21 History Multivitamin [Multivitamins] 1 each PO DAILY 04/20/20 02/09/21 History Clopidogrel Bisulfate [Clopidogrel 75 mg PO DAILY 08/19/20 02/08/21 History 75mg Tab] ursodiol 250 mg tablet 500 mg PO BID 08/19/20 02/09/21 History warfarin 10 mg tablet 9 mg PO DAILY 08/19/20 02/09/21 History doxycycline monohydrate 100 mg 100 mg PO DAILY cap 01/20/21 02/08/21 History capsule torsemide 20 mg tablet 20 mg PO DAILY tab 01/20/21 02/08/21 History Budesonide [Budesonide EC] 9 mg PO DAILY 02/08/21 02/09/21 History Ipratropium/Albuterol Sulfate 1 puff IH QIDP PRN 02/09/21 02/09/21 History [Combivent Respimat Inh] Potassium Chloride [K-Tab ER 20 20 meq PO DAILY 02/09/21 02/09/21 History mEq] Height: 1.83 m Weight: 110 kg Laboratory Results:: Laboratory Results - last 24 hr 02/10/21 22:06: Vancomycin Peak 19.8 02/11/21 01:06: Specimen Source Right radial, O2 % 40l 100% vapo, ABG pH 7.41, ABG pCO2 35.4, ABG pO2 50.7 L, ABG HCO3 22.1, ABG Total CO2 23.2, ABG O2 Saturation 84 L*, ABG Base Excess -2.5 L, [place] Test Acceptable 02/11/21 05:30: Vancomycin Trough 12.4 H 02/11/21 05:30: WBC 20.1 H* D, RBC 3.56 L, Hgb 9.6 L, Hct 32.3 L, MCV 90.6, MCH 26.9 L, MCHC 29.7 L, RDW 23.2 H, Plt Count 446 H, MPV 8.1, Neut % (Auto) 93.9 H, Lymph % (Auto) 3.0 L, [place] % (Auto) 3.0, Eos % (Auto) 0.0 L, Baso % (Auto) 0.1, Neut # (Auto) 18.9 H, Lymph # (Auto) 0.6 L, [place] # (Auto) 0.6, Eos # (Auto) 0.0, Baso # (Auto) 0.0, Total Counted 100, Neutrophils % (Manual) 91 H, Lymphocytes % (Manual) 8 L, Monocytes % (Manual) 1 L, Nucleated RBCs 1, Platelet Estimate Slight increase, Hypochromasia 2+ 02/11/21 05:30: PT 52.9 H, INR 5.05 H 02/11/21 05:30: Sodium 143, Potassium 3.9, Chloride 109 H, Carbon Dioxide 27, Anion Gap 10.9, BUN 20, Creatinine 0.60 L, Estimated Creat Clear 101, Estimated GFR 132, Est GFR ( Amer) 159, Glucose 158 H, Calcium 8.7, Magnesium 1.9, Total Bilirubin 0.8, AST 44, ALT 33, Alkaline Phosphatase 282 H, Total Protein 6.2 L, Albumin 2.8 L, Globulin 3.4 H, Albumin/Globulin Ratio 0.8 L 02/11/21 05:30: Urine Color Yellow, Urine Appearance Clear, Urine pH 6.0, Ur Specific [place] 1.020, Urine Protein Negative, Urine Glucose (UA) Negative, Urine Ketones Negative, Urine Blood 2+, Urine Nitrate Negative, Urine Bilirubin Negative, Urine Urobilinogen 0.2, Ur Leukocyte Esterase Negative, Urine RBC 20-50, Urine WBC None, Ur Squamous Epith Cells 3-5, Amorphous Sediment Trace, Urine Bacteria None, RBC Casts Occasional 02/11/21 05:30: ESR 94 H 02/11/21 05:30: C-Reactive Protein 213.6 H, Procalcitonin 1.26 02/11/21 11:15: Chlamy pneumoniae PCR Not detected, Adenovirus (PCR) Not detected, B. pertussis DNA (PCR) Not detected, Coronavirus OC43 (PCR) Not detected, Coronavirus HKU1 (PCR) Not detected, Coronavirus 229E (PCR) Not detected, SARS-CoV-2 (PCR) Not detected, Coronavirus NL63 (PCR) Not detected, Human Metapneumovir PCR Not detected, Influenza A (H1) PCR Not detected, Influ A (H1N1/09) PCR Not detected, Influenza A (H3) PCR Not detected, Influenza Type A (PCR) Not detected, I
--- NOTE | 2021-02-11 17:42 | DIET.NUTRFU ---
PO intakes 50% rt SOA, weight stable, normal bowel function, severe osteo wound noted, slightly elevated BG rt steroids- 139-163. Diet liberalized from cardiac to no added salt for same Na restriction without restriction fat to encourage increased intakes, daily protein shake added to order. Pt may have additional supplements by request/RN offer. Please assist and encourage/cue at meal times, offer supplements as needed.
--- NOTE | 2021-02-11 17:50 | HMH.ACPN2 ---
Internal Medicine - PN: Subj *Date: 02/11/21 *Time: 17:50 Interval history: Mr. Otto is continued to remain tenuous from a respiratory status. Tolerating Vapotherm with nonrebreather for saturations in the high 80s. He is sitting up in bed alert, oriented on exam this morning. States he feels better than when he came to the hospital originally. Continues to have A. fib with heart rate in the 90-110 range. Remains afebrile. With deep breaths oxygen saturations improved somewhat to 90. On interview, patient states he does not want to be on a ventilator. Explained that he is on maximal noninvasive support. Patient tolerating p.o. intake. Baca placed overnight with diuresis initiated given concern for CHF component and greater than 3 L positive volume status since admission. Contacted patient's , updated her on his current status. Explained potential need for higher level of respiratory support if he does not respond or improve in the next 12 to 24 hours. She states she would prefer he be ventilated in that setting. At this time however as he has capacity to make this decision, I am holding on intubation today. Otherwise tolerating medications. Urine in Baca is bloody. Suspect is secondary to trauma from placement versus from bladder lesion that is suspected to be cancer. He states he did not follow-up with urology as he was feeling bad. Exam Vital signs and Labs for Last 24 Hours: Temp Pulse Resp BP Pulse Ox 97.9 F 86 31 H 106/53 L 89 L 02/11/21 16:00 02/11/21 16:00 02/11/21 16:00 02/11/21 16:00 02/11/21 16:00 Laboratory Results - last 24 hr 02/10/21 22:06: Vancomycin Peak 19.8 02/11/21 01:06: Specimen Source Right radial, O2 % 40l 100% vapo, ABG pH 7.41, ABG pCO2 35.4, ABG pO2 50.7 L, ABG HCO3 22.1, ABG Total CO2 23.2, ABG O2 Saturation 84 L*, ABG Base Excess -2.5 L, [place] Test Acceptable 02/11/21 05:30: Vancomycin Trough 12.4 H 02/11/21 05:30: WBC 20.1 H* D, RBC 3.56 L, Hgb 9.6 L, Hct 32.3 L, MCV 90.6, MCH 26.9 L, MCHC 29.7 L, RDW 23.2 H, Plt Count 446 H, MPV 8.1, Neut % (Auto) 93.9 H, Lymph % (Auto) 3.0 L, [place] % (Auto) 3.0, Eos % (Auto) 0.0 L, Baso % (Auto) 0.1, Neut # (Auto) 18.9 H, Lymph # (Auto) 0.6 L, [place] # (Auto) 0.6, Eos # (Auto) 0.0, Baso # (Auto) 0.0, Total Counted 100, Neutrophils % (Manual) 91 H, Lymphocytes % (Manual) 8 L, Monocytes % (Manual) 1 L, Nucleated RBCs 1, Platelet Estimate Slight increase, Hypochromasia 2+ 02/11/21 05:30: PT 52.9 H, INR 5.05 H 02/11/21 05:30: Sodium 143, Potassium 3.9, Chloride 109 H, Carbon Dioxide 27, Anion Gap 10.9, BUN 20, Creatinine 0.60 L, Estimated Creat Clear 101, Estimated GFR 132, Est GFR ( Amer) 159, Glucose 158 H, Calcium 8.7, Magnesium 1.9, Total Bilirubin 0.8, AST 44, ALT 33, Alkaline Phosphatase 282 H, Total Protein 6.2 L, Albumin 2.8 L, Globulin 3.4 H, Albumin/Globulin Ratio 0.8 L 02/11/21 05:30: Urine Color Yellow, Urine Appearance Clear, Urine pH 6.0, Ur Specific [place] 1.020, Urine Protein Negative, Urine Glucose (UA) Negative, Urine Ketones Negative, Urine Blood 2+, Urine Nitrate Negative, Urine Bilirubin Negative, Urine Urobilinogen 0.2, Ur Leukocyte Esterase Negative, Urine RBC 20-50, Urine WBC None, Ur Squamous Epith Cells 3-5, Amorphous Sediment Trace, Urine Bacteria None, RBC Casts Occasional 02/11/21 05:30: ESR 94 H 02/11/21 05:30: C-Reactive Protein 213.6 H, Procalcitonin 1.26 02/11/21 11:15: Chlamy pneumoniae PCR Not detected, Adenovirus (PCR) Not detected, B. pertussis DNA (PCR) Not detected, Coronavirus OC43 (PCR) Not detected, Coronavirus HKU1 (PCR) Not detected, Coronavirus 229E (PCR) Not detected, SARS-CoV-2 (PCR) Not detected, Coronavirus NL63 (PCR) Not detected, Human Metapneumovir PCR Not detected, Influenza A (H1) PCR Not detected, Influ A (H1N1/09) PCR Not detected, Influenza A (H3) PCR Not detected, Influenza Type A (PCR) Not detected, Influenza Type B (PCR) Not detected, M. pneumoniae (PCR) Not detected, Parainfluenza 1 (PCR) Not detected,
--- NOTE | 2021-02-11 17:58 | PC.NURSE ---
pt has been alert and awake this shift. pt is compliant with wearing nrb and vapotherm. denies any distress. lung sounds contain faint wet crackles throughout. bowel sound are active inall quads. and pt still discussing if they are agreeable to intubation. md aware.
--- NOTE | 2021-02-11 18:04 | PC.NURSE ---
[id number] v/o from dr serrano to pt iv
--- NOTE | 2021-02-11 20:37 | PC.NURSE ---
1749 dr serrano made aware of pt urine being bloody this shift. states that pt has a bladder mass/lesion and this could be the reason for the blood/discoloration. 1930 conversation with pt at this time. pt questioned that if he continues to decline and would require intubation (process then explained) would he be agreeable. pt states that he and his are agreeable to intubation, states that anything is better that this
[2021-02-11 23:40] LABS: ABG Base Excess -3.2 mmol/L (-2.4-2.3); ABG HCO3 22.2 mmhg (22.0-26.0); ABG Oxygen Saturation 71 % (90-100); ABG PCO2 40.1 mmhg (35.0-45.0); ABG PH 7.36 mmol/L (7.35-7.45); ABG TCO2 23.4 mmhg (23-27)
[2021-02-11 23:42] LABS: Allen's Test Acceptable; Oxygen VAPO 40L 100% %; Source Right Radial
[2021-02-11 23:45] LABS: ABG PO2 40.2 mmhg (80-100)
[2021-02-12] VITALS (17 sets, daily range): BP systolic 93–145; BP diastolic 40–70; PULSE 101–133; RESP 22–29; TEMP 36.2–36.8; O2SAT 80–91; BMI 32.8
--- NOTE | 2021-02-12 01:20 | PC.NURSE ---
He is A&Ox3. His O2 sats were in the mid to lower 80s upon shift change. His sats decreased in the 70s. MD edge bonder has been paged numerous times in regards to his O2 sats and several orders have been received-see MAR. He requested that his come visit so he could discuss his code status with her. He states he wants to be a full-time. His O2 sats habe decreased as into the low 70s. He is currently at 80%. ABG obtained with critical O2 sat, name and verified with respiratory, and Dr. Conteh notified. Pt reported he was feeling better after receiving duoneb and lasix. F/c patent. Hematuria noted. He has received PRN medication for pain.
[2021-02-12 06:22] LABS: ABG Base Excess 0.4 mmol/L (-2.4-2.3); ABG HCO3 25.8 mmhg (22.0-26.0); ABG Oxygen Saturation 73 % (90-100); ABG PH 7.36 mmol/L (7.35-7.45); ABG TCO2 27.3 mmhg (23-27)
[2021-02-12 06:23] LABS: Allen's Test Non Applicable; Source Left Brachial
[2021-02-12 06:24] LABS: ABG PO2 41.1 mmhg (80-100)
[2021-02-12 06:42] LABS: Basophils # 0.1 K/mm3 (0-0.2); Basophils % 0.3 % (0.1-2.0); Hematocrit 30.3 % (42.0-52.0); Hemoglobin 8.9 g/dL (14.1-18.0); Lymphocytes # 0.8 K/mm3 (0.7-4.5); Lymphocytes % 4.5 % (10-50); Mean Corpuscular HGB Conc 29.4 g/dL (31.8-35.4); Mean Corpuscular Hemoglobin 27.5 pg (27.0-31.2); Mean Corpuscular Volume 93.7 fl (80-94); Mean Platelet Volume 8.5 fl (7.4-10.4); Monocytes # 0.5 K/mm3 (0.1-1.0); Monocytes % 2.6 % (1.7-9.3); Neutrophils # 16.1 K/mm3 (1.8-7.8); Neutrophils % 92.6 % (37.0-80.0); Platelet Count 325 K/mm3 (142-424); Red Blood Count 3.23 M/mm3 (4.60-6.20); Red Cell Distribution Width 23.3 % (11.5-17.5); White Blood Count 17.4 K/mm3 (4.8-10.8)
[2021-02-12 06:49] LABS: MANUAL DIFFERENTIAL MANUAL DIFFERENTIAL (MANUAL DIFF)
[2021-02-12 06:50] LABS: Alanine Aminotransferase 29 U/L (12-78); Albumin Level 2.8 g/dl (3.5-5.0); Albumin/Globulin Ratio 0.9 (1.1-1.8); Alkaline Phosphatase 280 U/L (38-126); Anion Gap 9.1 mEq/L (5-15); Aspartate Amino Transferase 36 U/L (17-59); Bilirubin,Total 0.7 mg/dl (0.2-1.3); Blood Urea Nitrogen 27 mg/dl (9-20); Calcium 8.6 mg/dl (8.4-10.2); Carbon Dioxide 30 mmol/L (22.0-30.0); Chloride 109 mmol/L (98-107); Creatinine Clearance Estimated 101 mL/min (50-200); Estimated Glomerular Filt Rate 94 ml/min (>60); GFR (African American) 114 ML/MIN (>60); Globulin 3.2 g/dL (1.3-3.2); Glucose 146 mg/dl (74-100); Potassium 4.1 mmoL/L (3.5-5.1); Sodium 144 mmol/L (136-145)
[2021-02-12 06:56] LABS: Prothrombin Time 30.7 seconds (10.1-12.5)
[2021-02-12 07:31] LABS: INR 2.81 (0.9-1.1)
[2021-02-12 08:17] LABS: Hypochromasia 2+; Lymphocytes % 5 % (10-50); Monocytes % 2 % (2-9); Neutrophils % 93 % (42-76); Platelet Estimate Normal; Total Cells Counted 100
--- NOTE | 2021-02-12 09:21 | HMH.ACPN2 ---
Internal Medicine - PN: Subj *Date: 02/12/21 *Time: 09:21 Interval history: No major changes overnight, continues to require fairly maximum oxygenation support but overall patient states he feels slightly better than yesterday. I had a long discussion with he and his about his overall prognosis today. Exam Vital signs and Labs for Last 24 Hours: Temp Pulse Resp BP Pulse Ox 98 F 128 H 26 H 134/64 88 L 02/12/21 08:00 02/12/21 08:00 02/12/21 08:00 02/12/21 08:00 02/12/21 08:00 Laboratory Results - last 24 hr 02/11/21 11:15: Chlamy pneumoniae PCR Not detected, Adenovirus (PCR) Not detected, B. pertussis DNA (PCR) Not detected, Coronavirus OC43 (PCR) Not detected, Coronavirus HKU1 (PCR) Not detected, Coronavirus 229E (PCR) Not detected, SARS-CoV-2 (PCR) Not detected, Coronavirus NL63 (PCR) Not detected, Human Metapneumovir PCR Not detected, Influenza A (H1) PCR Not detected, Influ A (H1N1/09) PCR Not detected, Influenza A (H3) PCR Not detected, Influenza Type A (PCR) Not detected, Influenza Type B (PCR) Not detected, M. pneumoniae (PCR) Not detected, Parainfluenza 1 (PCR) Not detected, Parainfluenza 2 (PCR) Not detected, Parainfluenza 3 (PCR) Not detected, Parainfluenza 4 (PCR) Not detected, RSV (PCR) Not detected, Entero/Rhino (PCR) Not detected 02/11/21 23:38: Specimen Source Right radial, O2 % [place] 40l 100%, ABG pH 7.36, ABG pCO2 40.1, ABG pO2 40.2 L, ABG HCO3 22.2, ABG Total CO2 23.4, ABG O2 Saturation 71 L*, ABG Base Excess -3.2 L, [place] Test Acceptable 02/12/21 05:15: WBC 17.4 H, RBC 3.23 L, Hgb 8.9 L, Hct 30.3 L, MCV 93.7, MCH 27.5, MCHC 29.4 L, RDW 23.3 H, Plt Count 325 D, MPV 8.5, Neut % (Auto) 92.6 H, Lymph % (Auto) 4.5 L, [place] % (Auto) 2.6, Eos % (Auto) 0.0 L, Baso % (Auto) 0.3, Neut # (Auto) 16.1 H, Lymph # (Auto) 0.8, [place] # (Auto) 0.5, Eos # (Auto) 0.0, Baso # (Auto) 0.1, Total Counted 100, Neutrophils % (Manual) 93 H, Lymphocytes % (Manual) 5 L, Monocytes % (Manual) 2, Platelet Estimate Normal, Hypochromasia 2+ 02/12/21 05:15: PT 30.7 H, INR 2.81 H 02/12/21 05:15: Sodium 144, Potassium 4.1, Chloride 109 H, Carbon Dioxide 30, Anion Gap 9.1, BUN 27 H D, Creatinine 0.80 D, Estimated Creat Clear 101, Estimated GFR 94, Est GFR ( Amer) 114 D, Glucose 146 H, Calcium 8.6, Magnesium 2.0, Total Bilirubin 0.7, AST 36, ALT 29, Alkaline Phosphatase 280 H, Total Protein 6.0 L, Albumin 2.8 L, Globulin 3.2, Albumin/Globulin Ratio 0.9 L 02/12/21 06:00: Specimen Source Left brachial, O2 % 100 nrb, ABG pH 7.36, ABG pCO2 47.0 H, ABG pO2 41.1 L, ABG HCO3 25.8, ABG Total CO2 27.3 H, ABG O2 Saturation 73 L*, ABG Base Excess 0.4, [place] Test Non applicable, [place] Volume vapo 100% I & O for Last 24 hours: Intake & Output 02/09/21 02/10/21 02/11/21 02/12/21 11:59 11:59 11:59 11:59 Intake Total 240 / 240 4213 / 4213 4166 / 4166 570 / 570 Output Total 400 / 400 1475 / 1475 1100 / 1100 2045 / 2045 Balance -160 / -160 2738 / 2738 3066 / 3066 -1475 / -1475 Weight 240 lb 11.916 oz 242 lb 8.136 oz 242 lb 8 oz Microbiology Reports for the Last 24 Hours: Microbiology 02/10/21 19:31 Sputum - Expectorated Sputum Gram Stain - Final 02/10/21 19:31 Sputum - Expectorated Sputum Sputum Culture - Preliminary 02/09/21 09:50 Leg,Right - Right Gram Stain - Final 02/09/21 09:50 Leg,Right - Right Wound Culture - Preliminary Proteus mirabilis Gram Negative Rods Narrative: Constitutional moderate distress, obese, chronically ill appearing, cooperative - *Routine HEENT Exam Head: Present: normocephalic Eye: Present: EOMI, PERRL ENT: Present: mucous membranes moist - *Routine Neck Exam Present: supple. Absent: lymphadenopathy - *Routine Respiratory Exam Present: crackles, diminished air movement - *Routine Cardiovascular Exam Present: tachycardia, irregularly irregular - *Routine Abdominal Exam Present: soft, normoactive bowel sounds. Absent: tenderness
--- NOTE | 2021-02-12 09:47 | PC.NURSE ---
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 Notified Dr. Timmons.
[2021-02-13] VITALS (17 sets, daily range): BP systolic 112–140; BP diastolic 59–70; PULSE 103–136; RESP 24–30; TEMP 36.1–37.1; O2SAT 83–94; BMI 32.7
--- NOTE | 2021-02-13 01:03 | PC.NURSE ---
He is A&Ox3. Lung sounds with crackles. He reported SOA at the beginning of the shift. He received a one time dose of lasix 80mg, duoneb, solumedrol 80mg, and morphine 2mg. He sats have been 82-88% with non-rebreather and vapotherm at 40LPM 100% FiO2. His called tonight and believes that he wants to be a DNR and plans to discuss that tomorrow. F/C patent with hematura. DSG changed on chest port and RLE.
--- NOTE | 2021-02-13 05:07 | PC.NURSE ---
He pulled off his vapotherm and his non-rebreather. Respirations labored. Monitor unable to oyster picker O2 sat and his heart rhythm changed from uncontrolled afib to controlled afib. He continued to try and take it off after it was replaced. He rolled over in bed and had one leg hanging out of the bed. Respositioned in bed and lower bedrail raised as he was laying on his side to prevent fall and he put his leg over the bed rail; therefore, bed rail was lower. Respiratory is in the room. MD instructional supervisor contacted and received n/o for morphine 2mg IV. O2 sat 85% at this time.
[2021-02-13 06:28] LABS: Basophils # 0.1 K/mm3 (0-0.2); Basophils % 0.5 % (0.1-2.0); Hematocrit 32.5 % (42.0-52.0); Hemoglobin 9.7 g/dL (14.1-18.0); Lymphocytes # 0.9 K/mm3 (0.7-4.5); Lymphocytes % 5.7 % (10-50); Mean Corpuscular HGB Conc 29.8 g/dL (31.8-35.4); Mean Corpuscular Hemoglobin 27.4 pg (27.0-31.2); Mean Corpuscular Volume 91.8 fl (80-94); Mean Platelet Volume 9.7 fl (7.4-10.4); Monocytes # 0.3 K/mm3 (0.1-1.0); Monocytes % 2.2 % (1.7-9.3); Neutrophils # 14.6 K/mm3 (1.8-7.8); Neutrophils % 91.7 % (37.0-80.0); Platelet Count 215 K/mm3 (142-424); Red Blood Count 3.54 M/mm3 (4.60-6.20); Red Cell Distribution Width 23.1 % (11.5-17.5); White Blood Count 15.9 K/mm3 (4.8-10.8)
[2021-02-13 06:36] LABS: Prothrombin Time 18.8 seconds (10.1-12.5)
[2021-02-13 06:43] LABS: MANUAL DIFFERENTIAL MANUAL DIFFERENTIAL (MANUAL DIFF)
[2021-02-13 06:44] LABS: INR 1.65 (0.9-1.1)
[2021-02-13 07:05] LABS: Chloride 109 mmol/L (98-107)
[2021-02-13 07:06] LABS: Sodium 141 mmol/L (136-145)
[2021-02-13 07:08] LABS: Blood Urea Nitrogen 36 mg/dl (9-20); Creatinine Clearance Estimated 100 mL/min (50-200); Estimated Glomerular Filt Rate 94 ml/min (>60); GFR (African American) 114 ML/MIN (>60)
[2021-02-13 07:09] LABS: Calcium 8.3 mg/dl (8.4-10.2); Carbon Dioxide 26 mmol/L (22.0-30.0); Glucose 202 mg/dl (74-100)
[2021-02-13 07:20] LABS: Anisocytosis 2+; Hypochromasia 3+; Lymphocytes % 5 % (10-50); Neutrophils % 90 % (42-76); Nucleated Red Blood Cells 3; Platelet Estimate Normal; Poikilocytosis 1+; Total Cells Counted 100
--- NOTE | 2021-02-13 08:45 | HMH.ACPN2 ---
Internal Medicine - PN: Subj *Date: 02/13/21 *Time: 08:45 Interval history: Patient is a little more comfortable this morning after receiving some morphine, awakens and is alert and oriented. Asked for some water and is able to drink from a straw fairly vigorously. He seems much more comfortable vis-?-vis respiratory rate and effort. Exam Vital signs and Labs for Last 24 Hours: Temp Pulse Resp BP Pulse Ox 97.0 F L 128 H 24 140/60 90 L 02/13/21 08:00 02/13/21 08:00 02/13/21 08:00 02/13/21 08:00 02/13/21 08:00 Laboratory Results - last 24 hr 02/13/21 05:50: PT 18.8 H, INR 1.65 H 02/13/21 05:50: WBC 15.9 H, RBC 3.54 L, Hgb 9.7 L, Hct 32.5 L, MCV 91.8, MCH 27.4, MCHC 29.8 L, RDW 23.1 H, Plt Count 215 D, MPV 9.7, Neut % (Auto) 91.7 H, Lymph % (Auto) 5.7 L, Carlton % (Auto) 2.2, Eos % (Auto) 0.0 L, Baso % (Auto) 0.5, Neut # (Auto) 14.6 H, Lymph # (Auto) 0.9, Carlton # (Auto) 0.3, Eos # (Auto) 0.0, Baso # (Auto) 0.1, Total Counted 100, Neutrophils % (Manual) 90 H, Band Neutrophils % 5.0, Lymphocytes % (Manual) 5 L, Nucleated RBCs 3, Platelet Estimate Normal, Hypochromasia 3+, Poikilocytosis 1+, Anisocytosis 2+ 02/13/21 05:50: Sodium 141, Potassium 4.0, Chloride 109 H, Carbon Dioxide 26, Anion Gap 10.0, BUN 36 H D, Creatinine 0.80, Estimated Creat Clear 100, Estimated GFR 94, Est GFR ( Amer) 114, Glucose 202 H, Calcium 8.3 L I & O for Last 24 hours: Intake & Output 02/10/21 02/11/21 02/12/21 02/13/21 11:59 11:59 11:59 11:59 Intake Total 4213 / 4213 4166 / 4166 570 / 570 900 / 900 Output Total 1475 / 1475 1100 / 1100 2045 / 2045 1800 / 1800 Balance 2738 / 2738 3066 / 3066 -1475 / -1475 -900 / -900 Weight 242 lb 8.136 oz 242 lb 8 oz 241 lb 10.026 oz Microbiology Reports for the Last 24 Hours: Microbiology 02/09/21 09:50 Leg,Right - Right Gram Stain - Final 02/09/21 09:50 Leg,Right - Right Wound Culture - Final Proteus mirabilis Escherichia coli 02/10/21 19:31 Sputum - Expectorated Sputum Gram Stain - Final 02/10/21 19:31 Sputum - Expectorated Sputum Sputum Culture - Final Normal Respiratory Erika Narrative: Heart rate still in the low 100s. Respiratory rate slightly improved, continues to require maximum O2 support with nasal cannula and facemask. Air movement is slightly better but continues to be tenuous. Heart rate irregular and tachycardic. Abdomen soft. Pulses are good, Baca catheter draining bloody tinged urine. Assessment and Plan (1) Severe sepsis Status: Acute Category: Medical Code(s): A41.9 - Sepsis, unspecified organism; R65.20 - Severe sepsis without septic shock (2) Pneumonia Status: Acute Qualifiers: Laterality: bilateral Category: Medical Code(s): J18.9 - Pneumonia, unspecified organism (3) Acute respiratory failure Status: Acute Qualifiers: Respiratory failure complication: hypoxia Qualified Code(s): J96.01 - Acute respiratory failure with hypoxia Category: Medical Code(s): J96.00 - Acute respiratory failure, unspecified whether with hypoxia or hypercapnia (4) Atrial fibrillation with RVR Status: Acute Category: Medical Code(s): I48.91 - Unspecified atrial fibrillation (5) Class 1 obesity Status: Chronic Category: Medical Code(s): E66.9 - Obesity, unspecified (6) Chronic osteomyelitis of right lower leg Status: Chronic Category: Medical Code(s): M86.661 - Other chronic osteomyelitis, right tibia and fibula (7) Lung cancer Status: Chronic Category: Medical Code(s): C34.90 - Malignant neoplasm of unspecified part of unspecified bronchus or lung (8) Hematuria Status: Acute Category: Medical Code(s): R31.9 - Hematuria, unspecified - Assessment and plan all Dx Assessment and Plan for all problems:: Continue supportive care. The patient and his have been considering changing his CODE STATUS based
--- NOTE | 2021-02-13 12:57 | PC.NURSE ---
pt and at BS and wish to change code status to a DNR. Education provided on DNR status. Pt is A&O and signed DNR form. Order entered per Dr. Timmons.
[2021-02-13 17:35] LABS: Vancomycin,Trough 27.6 ug/mL (5.0-10.0)
[2021-02-13 21:14] LABS: Vancomycin,Peak 24.6 ug/ml (11-39)
[2021-02-14] VITALS: BP 106/88; PULSE 100; PULSE 119; RESP 22; O2SAT 90
[2021-02-14 01:27] LABS: Prothrombin Time 17.8 seconds (10.1-12.5)
[2021-02-14 01:29] LABS: INR 1.56 (0.9-1.1)
--- NOTE | 2021-02-14 01:41 | HMH.DEATH ---
Pronouncement Note - Date and Time of Date of : 02/14/21 Time of : 01:25 - PCOD Preliminary cause of : Pneumonia - Additional Data Confirmation of : no pulse, no respirations, no heart sounds, pupils fixed and dilated Family: not available Attending physician: Ricardo Timmons MD
[2021-02-14 02:00] LABS: Vancomycin,Random 21.9 ug/ml
--- NOTE | 2021-02-14 02:57 | PC.NURSE ---
Patient had pulled his vaportherm and non-rebreather off of his face. Patient fought against staff when putting oxygen back on. Patient's heart rate dropped, his oxygen dropped and began agonal breathing. Notified of status change at 0120.
--- NOTE | 2021-02-14 03:27 | PC.NURSE ---
Deaccessed patients port prior to [facility] picking up patient.
--- NOTE | 2021-02-14 03:40 | PC.NURSE ---
Late Entry: JAIME contacted at 0144. R/o for donation by Rhianna Salcedo. Case # [id number]
[2021-02-18 07:13] LABS: Lactate Arterial 2.4 mmol/L (0.4-2.0)
[2021-02-18 07:26] LABS: Reflex Lactic No Lactic Reflex
--- NOTE | 2021-03-04 13:04 | HMH.DEADDC ---
Discharge Sum: Prov - Provider Primary care physician: Ricardo Timmons MD Visit Care Team Role Provider Type Matt Delgado MD Emergency Provider ER Physician Ricardo Timmons MD Attending Provider Staff Physician Primary Care Provider Manuel Rosales MD Admit Provider Staff Physician Admitting clinician: Manuel Rosales Attending physician on admission: Manuel Rosales Pronouncing clinician: Goran Hessdawson Discharge Sum: Diag - PCOD Cause of : Pneumonia Discharge Sum: Summary - Date and Time Date of admission: 02/08/21 17:33 Date of : 02/14/21 Time of : 01:25 - Hospital Course prior to Hospital Course Information: Mr. Otto was a 75-year-old male with history of metastatic lung cancer on maintenance therapy with Keytruda, COPD, A. fib, adrenal lesion with stress dose steroid treatment, and recent identification of bladder mass who presents with severe sepsis due to community-acquired pneumonia and acute hypoxemic respiratory failure. A. fib with RVR likely secondary to physiologic stress from illness. Was treated with beta-blockers and calcium channel blockers (metoprolol and diltiazem) with attempt to control heart rate. Did not respond well and continued to be in A. fib with RVR through the course of admission. INR monitored daily, was on warfarin at home. INR remained elevated above goal and warfarin was held through hospitalization. Given volume overload and A. fib with RVR, patient was diuresed intermittently throughout hospitalization, responded well to this with adequate urine output and stable kidney function. In the setting of his pneumonia, he was on maximal noninvasive support. Patient's goals of care were clear that he did not want to be intubated or have invasive respiratory support. Continued breathing treatments as tolerated. Continue broad-spectrum antibiotics for pneumonia as well as his chronic osteomyelitis. He unfortunately did not show improvement and was unable to wean his oxygen requirement. Multiple discussions with family and patient led to the decision to transition goals of care from curative/treatment for his pneumonia to comfort measures. Patient was transitioned to comfort care less than 24 hours prior to his . From a heart failure standpoint his echo results were as follows. Echocardiogram obtained: 1. Biatrial enlargement, normal left ventricular size, mild concentric left ventricular hypertrophy, visually estimated ejection fraction 55% with no regional wall motion abnormality, diastolic parameters are inconclusive. 2. Mildly enlarged right ventricle with normal contractility. 3. Thickened and calcified aortic valve without aortic stenosis or aortic insufficiency. 4. Mild mitral and tricuspid regurgitation. Calculated right ventricular systolic pressure is 43 mmHg. 5. No significant pericardial effusion noted. Inferior vena cava is normal size with normal inspiratory collapse. Further discussions with oncology during admission, patient's cancer is terminal, widespread, and there are no further treatments even for palliative measures. - Additional Data Confirmation of as documented by pronouncing clinician: no pulse Family: at bedside Attending/PCP notified?: Yes Attending physician: Ricardo Timmons MD Was code activated?: No Autopsy requested?: No line up examiner notified?: No Organ bank notified?: Yes Hospice patient?: No
== END 2021-02-14 03:20 | disposition expired | DRG 871 ==
LOC: ER 13:24 → 2ND 16:37 → ICU 02-09 07:02 → 2ND 02-10 11:43
PROVIDERS: Family Medicine; Admitting Provider Internal Medicine Adolescent Medicine; Emergency Provider Student in an Organized Health Care Education/Training Program; PCP Internal Medicine Adolescent Medicine; Visit Provider Internal Medicine Adolescent Medicine
DX: A41.9 Sepsis, unspecified organism (principal); J18.9 Pneumonia, unspecified organism; J96.01 Acute respiratory failure with hypoxia; C34.90 Malignant neoplasm of unspecified part of unspecified bronchus or lung; M86.661 Other chronic osteomyelitis, right tibia and fibula; R65.20 Severe sepsis without septic shock; I48.91 Unspecified atrial fibrillation; Z87.891 Personal history of nicotine dependence; J44.9 Chronic obstructive pulmonary disease, unspecified; I25.10 Atherosclerotic heart disease of native coronary artery without angina pectoris; E78.5 Hyperlipidemia, unspecified; I11.0 Hypertensive heart disease with heart failure; I50.9 Heart failure, unspecified; Z79.01 Long term (current) use of anticoagulants; R31.9 Hematuria, unspecified; E66.9 Obesity, unspecified; Z68.32 Body mass index [BMI] 32.0-32.9, adult
CPT/HCPCS: 36415; 71275; 80048; 80051; 80053; 80162; 80202; 81001; 82272; 82803; 83605; 83735; 83880; 84145; 85007; 85025; 85610; 85651; 86140; 87040; 87070; 87077; 87186; 87205; 87581; 87633; 87798; 93005; 93306; 94640; 94760; 96365; 96367; 96375; 99285; G0328; J0456; J2405; J3370; Q9967; U0003